=== PATIENT | male | born 1950 | race Caucasian/White ===

== ENCOUNTER 2023-02-11 14:29 | Outpatient (OUT) | payer MEDICARE, BC, SELFPAY ==
[2023-02-11 16:12] LABS: Anion Gap 12.4; BUN Creatinine Ratio 8.2; Calcium 8.6 mg/dL (8.5-10.1); Carbon Dioxide 26.8 mmol/L (21.0-32.0); Chloride 99 mmol/L (98-107); Estimated GFR (African America 57 (>=60); Estimated GFR (Non-African Ame 47 (>=60); Glucose 169 mg/dL (74-106); Potassium 4.2 mmol/L (3.5-5.1); Sodium 134 mmol/L (136-145)
== END 2023-02-11 14:30 | disposition home or self-care (01) ==
LOC: LAB 14:29
PROVIDERS: PCP Internal Medicine; Visit Provider Nurse Practitioner
DX: I50.20 Unspecified systolic (congestive) heart failure (principal)
CPT/HCPCS: 36415; 80048

== ENCOUNTER 2023-04-06 22:41 | Observation (INO) | payer MEDICARE, BC, SELFPAY ==
[2023-04-06 22:51] VITALS: BP 140/71; PULSE 68; RESP 20; TEMP 36.6; O2SAT 99; BMI 29.7
--- NOTE | 2023-04-06 23:01 | ECG_ITS ---
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
--- NOTE | 2023-04-06 23:02 | ED.CHESTPAI1 ---
HPI - Chest Pain General Chief Complaint: Chest Pain Stated Complaint: CHEST PAIN Time Seen by Provider: 04/06/23 22:58 Source: patient Mode of arrival: walk-in History of Present Illness HPI narrative: history of CAD. Developed chest pain earlier today while working outside. Came in and rest and it resolved. Tonight watching TV recurrence of chest pain. just left to center. No associated dyspnea or nausea. Took nitro x 3 at home and the pain has let up some. pain is tolerable. [place] light headed after nitro but this has resolved MD complaint: Reports chest pain Related Data Home Medications Medication Instructions Recorded Confirmed acetaminophen 650 mg 1,300 mg PO DAILY PRN fever or pain 04/06/23 04/06/23 tablet,extended release apixaban 5 mg tablet (Eliquis) 5 mg PO Q12H 04/06/23 04/06/23 atenolol 50 mg tablet 50 mg PO Q24H 04/06/23 04/06/23 atorvastatin 40 mg tablet 40 mg PO DAILY 04/06/23 04/06/23 furosemide 20 mg tablet 20 mg PO Q12H 04/06/23 04/06/23 lisinopril 5 mg tablet 5 mg PO DAILY 04/06/23 04/06/23 nitroglycerin 0.4 mg sublingual 0.4 mg sublingual Q5M 04/06/23 04/06/23 tablet omeprazole 20 mg capsule,delayed 20 mg PO DAILY 04/06/23 04/06/23 release Allergies Allergy/AdvReac Type Severity Reaction Status Date / Time No Known Drug Allergies Allergy Verified 04/06/23 22:56 Review of Systems ROS Status of ROS 10 or more systems reviewed and unremarkable except as noted in history and below [facility] Social History Smoking status: Former smoker Exam Constitutional Vital Signs, click to edit/add: Last Vital Signs Temp 97.8 F 04/06/23 22:51 Pulse 67 04/06/23 23:59 Resp 20 04/06/23 23:59 BP 135/64 04/06/23 23:59 Pulse Ox 97 04/06/23 23:59 O2 Del Method Room Air 04/06/23 23:59 Common normals: no apparent distress, average body habitus, oriented x3, no limitations and healthy appearing Eye Common normals: EOMs intact bilaterally and conjunctivae normal Respiratory Common normals: normal respiratory effort, no retractions, no use of accessory muscles and clear to auscultation bilaterally Cardio Common normals: regular rate, regular rhythm, S1 normal heart sound and S2 normal heart sound GI Common normals: Normal to inspection, nondistended, normoactive bowel sounds present and soft to palpation Extremity Common normals: normal to inspection and full ROM Neuro Common normals: oriented x3, CN's II-XII intact bilaterally, moves all extremities, no focal motor deficits and no sensory deficits noted Psych Appearance: grossly normal Course Vital Signs Vital signs: Vital Signs Temperature 97.8 F 04/06/23 22:51 Pulse Rate 68 04/06/23 22:51 Respiratory Rate 20 04/06/23 22:51 Blood Pressure 140/71 04/06/23 22:51 Pulse Oximetry 99 04/06/23 22:51 Oxygen Delivery Method Room Air 04/06/23 22:51 Temperature 97.8 F 04/06/23 22:51 Pulse Rate 67 04/06/23 23:59 Respiratory Rate 20 04/06/23 23:59 Blood Pressure 135/64 04/06/23 23:59 Pulse Oximetry 97 04/06/23 23:59 Oxygen Delivery Method Room Air 04/06/23 23:59 MDM - Chest Pain MDM Narrative Medical decision making narrative: patient has past history of CAD S/P stent placement. Experienced chest pain earlier this Afternoon. Pain returned tonight while resting and watching TV. Took Nitro glycerin with mild relief. No associated dyspnea or nausea. Pain is tolerable and he is not requesting any pain medication . EKG with LAFB and nonspecific T wave changes. First troponin neg. His chest pain has nearly resolved without intervention. Discussed with hospitalist and will plan obs admission to the hospital Lab Data Labs: Lab Results 04/06/23 Range/Units 22:57 WBC 6.3 (4.0-11.0) 10^3/uL RBC 4.08 L (4.70-6.10) 10^6/uL Hgb 13.4 L (14.0-18.0) g/dL Hct 36.5 L (42.0-54.0) % MCV 89.5 (80.0-94.0) fL MCH 32.8 (25.9-34.0) pg MCHC 36.7 H (29.9-35.2) g/dL RDW 13.4 (11.0-15.0) % Plt Count 168 (150-450) 10^3/uL MPV 10.1 (9.5-13.5) fL Neut % (Auto) 63.2 (43.0-75.0) % Lymph % (Auto) 24.5 (20.5-60.0) % [place] % (Auto) 8.2 (1.7-12.0) % Eos % (Auto) 3.0 (0.9-7.0) % Baso % (Auto) 0.6 (0.2-2.0) % Neut # (Auto) 4.0 (1.4-6.5) 10^3/uL Lymph # (Auto) 1.6 (1.2-3.8) 10^3/uL [place] # (Auto) 0.5 (0.3-0.8) 10^3/uL Eos # (Auto) 0.2 (0.0-0.7) 10^3/uL Baso # (Auto) 0.0 (0.0-0.1) 10^3/uL Abs Immat Gran (auto) 0.03 (0.00-0.03) 10^3/uL Imm/Tot Granulo (auto) 0.5 (0.0-0.5) % D-Dimer <0.19 (<=0.59) mg/L FEU Sodium 134 L (136-145) mmol/L Potassium 3.7 (3.5-5.1) mmol/L Chloride 100 (98-107) mmol/L Carbon Dioxide 22.1 (21.0-32.0) mmol/L Anion Gap 15.6 BUN 12.0 (7.0-18.0) mg/dL Creatinine 1.35 H (0.70-1.30) mg/dL Est GFR ( Amer) >60 (>=60) Est GFR (Non-Af Amer) 52 L (>=60) BUN/Creatinine Ratio 8.9 Glucose 233 H (74-106) mg/dL Calcium 8.0 L (8.5-10.1) mg/dL Troponin I High Sens 5.6 (4.0-76.1) pg/mL Discharge Plan Discharge Chief Complaint: Chest Pain Clinical Impression: Chest pain Patient Disposition: Admitted as Observation
[2023-04-06 23:08] VITALS: PULSE 66; O2SAT 98
[2023-04-06 23:09] LABS: Basophils Percent Auto 0.6 % (0.2-2.0); Eosinophils Absolute Auto 0.2 10^3/uL (0.0-0.7); Hematocrit 36.5 % (42.0-54.0); Hemoglobin 13.4 g/dL (14.0-18.0); Immature Granulocytes Abs Auto 0.03 10^3/uL (0.00-0.03); Immature Granulocytes Pct Auto 0.5 % (0.0-0.5); Lymphocytes Absolute Auto 1.6 10^3/uL (1.2-3.8); Lymphocytes Percent Auto 24.5 % (20.5-60.0); Mean Corpuscular HGB Conc 36.7 g/dL (29.9-35.2); Mean Corpuscular Hemoglobin 32.8 pg (25.9-34.0); Mean Corpuscular Volume 89.5 fL (80.0-94.0); Mean Platelet Volume 10.1 fL (9.5-13.5); Monocytes Absolute Auto 0.5 10^3/uL (0.3-0.8); Monocytes Percent Auto 8.2 % (1.7-12.0); Neutrophils Percent Auto 63.2 % (43.0-75.0); Platelet Count 168 10^3/uL (150-450); Red Blood Count 4.08 10^6/uL (4.70-6.10); Red Cell Distribution Width 13.4 % (11.0-15.0); White Blood Count 6.3 10^3/uL (4.0-11.0)
--- NOTE | 2023-04-06 23:09 | XR_ITS ---
The [address] [address] Patient Name: MICHELLE SANDOVAL MRN: [id number] date: 1950 Sex: M Assigned Patient Location: ER Current Patient Location: ER Accession/Order Number: [id number] Exam Date: 04/06/2023 23:09 Report Date: 04/07/2023 00:04 At the request of: CHRISTO SILVA Procedure: XR chest 1V EXAM: XR chest 1V HISTORY: chest pain COMPARISON: None. TECHNIQUE: AP portable FINDINGS: Slightly prominent cardiac size. Mild interstitial edema visualized. No evidence for pneumothorax or pleural effusions. No evidence for consolidation. The diaphragmatic and osseous structures are intact without evidence for an acute osseous abnormality. Mild atelectatic changes noted along the bilateral lung bases. XR/XR chest 1V IMPRESSION: Mild interstitial edema without evidence for consolidation, pneumothorax or pleural effusion. Mild atelectatic changes noted along the lung bases. Electronically authenticated by: IVIS HUNT Date: 04/07/2023 00:04
[2023-04-06 23:27] LABS: Anion Gap 15.6; BUN Creatinine Ratio 8.9; Carbon Dioxide 22.1 mmol/L (21.0-32.0); Chloride 100 mmol/L (98-107); Estimated GFR (African America >60 (>=60); Estimated GFR (Non-African Ame 52 (>=60); Glucose 233 mg/dL (74-106); Potassium 3.7 mmol/L (3.5-5.1); Sodium 134 mmol/L (136-145); Troponin I High Sensitivity 5.6 pg/mL (4.0-76.1)
[2023-04-06 23:31] LABS: D Dimer <0.19 mg/L FEU (<=0.59)
[2023-04-06 23:59] VITALS: BP 135/64; PULSE 67; RESP 20; O2SAT 97
[2023-04-07] VITALS (7 sets, daily range): BP systolic 136–147; BP diastolic 68–76; PULSE 56–74; RESP 16–20; TEMP 36.6–37; O2SAT 96–98; BMI 30.8
[2023-04-07 01:46] LABS: Troponin I High Sensitivity 5.3 pg/mL (4.0-76.1)
--- NOTE | 2023-04-07 04:44 | P.PN_ITS ---
Progress Note: Subjective Subjective Interval history: PT is a 72M with PMH of CAD, PCI who presents to the ED with complaint of chest pain. He states the pain is aching in quality, 7/10 in severity, nonradiating, no exacerbating factors, relieved by nitro. The pain came on while he was working in the yard. In the ED, EKG, Troponin, D-Dimer and CXr were all negative. At the time of my exam, pain is 1/10 He denies shortness of breath, palpitations, diaphoresis, nausea, vomiting. Exam Narrative Exam Narrative: GEN: NAD HEENT: NC/AT NECK: FROM CV: RRR, No murmur. PULM: CTA B/L GI: Nondistended Neuro: AAOx3 Psych: Calm, Cooperative Constitutional Vital Signs, click to edit/add: Last Vital Signs Temp 97.9 F 04/07/23 02:18 Pulse 63 04/07/23 04:15 Resp 20 04/07/23 02:18 BP 143/69 H 04/07/23 02:18 Pulse Ox 96 04/07/23 02:18 O2 Del Method Room Air 04/07/23 02:18 Progress Note: Objective Labs Labs: Short CBC 04/06/23 Range/Units 22:57 WBC 6.3 (4.0-11.0) 10^3/uL Hgb 13.4 L (14.0-18.0) g/dL Hct 36.5 L (42.0-54.0) % Plt Count 168 (150-450) 10^3/uL BMP 04/06/23 22:57 Sodium 134 L Potassium 3.7 Chloride 100 Carbon Dioxide 22.1 BUN 12.0 Creatinine 1.35 H Glucose 233 H Calcium 8.0 L Progress Note: A&P Assessment and Plan (1) Chest pain: Plan Known CAD, Hx of PCI Place in obs NPO for possible stress vs cath Echocardiogram Serial troponin EKG TSH Morphine PRN Telemetry monitoring Telemedicine Attestation Telemedicine Attestation I conducted this encounter from []SEKOU via secure live, [id number] video c onference with the patient, located at [facility] with [nurse]. Prior to the interview, the risks and benefits of telemedicine were discussed with the patient and verbal consent was obtained.
--- NOTE | 2023-04-07 05:00 | ECG_ITS ---
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
[2023-04-07 05:37] LABS: Basophils Percent Auto 0.8 % (0.2-2.0); Eosinophils Absolute Auto 0.2 10^3/uL (0.0-0.7); Eosinophils Percent Auto 3.6 % (0.9-7.0); Hematocrit 34.6 % (42.0-54.0); Hemoglobin 12.5 g/dL (14.0-18.0); Immature Granulocytes Abs Auto 0.03 10^3/uL (0.00-0.03); Immature Granulocytes Pct Auto 0.6 % (0.0-0.5); Lymphocytes Absolute Auto 1.2 10^3/uL (1.2-3.8); Lymphocytes Percent Auto 25.3 % (20.5-60.0); Mean Corpuscular HGB Conc 36.1 g/dL (29.9-35.2); Mean Corpuscular Hemoglobin 32.4 pg (25.9-34.0); Mean Corpuscular Volume 89.6 fL (80.0-94.0); Mean Platelet Volume 10.4 fL (9.5-13.5); Monocytes Absolute Auto 0.4 10^3/uL (0.3-0.8); Monocytes Percent Auto 8.6 % (1.7-12.0); Neutrophils Absolute Auto 2.9 10^3/uL (1.4-6.5); Neutrophils Percent Auto 61.1 % (43.0-75.0); Platelet Count 129 10^3/uL (150-450); Red Blood Count 3.86 10^6/uL (4.70-6.10); Red Cell Distribution Width 13.4 % (11.0-15.0); White Blood Count 4.8 10^3/uL (4.0-11.0)
[2023-04-07] MEDS: 0.9 % SODIUM CHLORIDE 1,000 ML 100 ML IV (05:44)
[2023-04-07 05:48] LABS: Anion Gap 8.2; BUN Creatinine Ratio 9.7; Calcium 8.1 mg/dL (8.5-10.1); Carbon Dioxide 24.4 mmol/L (21.0-32.0); Chloride 97 mmol/L (98-107); Estimated GFR (African America >60 (>=60); Estimated GFR (Non-African Ame 57 (>=60); Glucose 192 mg/dL (74-106); Magnesium 1.9 mg/dL (1.8-2.4); Potassium 3.6 mmol/L (3.5-5.1); Sodium 126 mmol/L (136-145)
[2023-04-07 05:53] LABS: Cholesterol 168 mg/dL (<=200); HDL Cholesterol 32 mg/dL (40-60); Triglycerides 249 mg/dL (<=150); VLDL CHOLESTEROL 49.8 mg/dL
[2023-04-07 05:55] LABS: Chol HDL Ratio 5.3
[2023-04-07 05:56] LABS: Thyroid Stimulating Hormone 3.252 uIU/mL (0.358-3.740)
--- NOTE | 2023-04-07 11:39 | CM.NOTE ---
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 No discharge needs identified. Medicare Outpatient Observation Notice also discussed with pt, pt verbalizes understanding and signs paper. Original given to pt and copy placed on pt's chart.
--- NOTE | 2023-04-07 12:32 | PM.HP ---
H&P: HPI History of Present Illness Chief complaint: Chest pain Narrative: 72 y/o male with a history of CAD presents to ER with chest pain. Developed episode of chest pain while working outside. Pain in mid chest and heaviness. No radiation to arm or jaw. Went inside and rested then pain resolved. Later that evening another episode of pain and to ER. Pain resolved by time of arrival and pain free since. Initial cardiac enzymes negative and admitted. Feels well this am and still no pain. Follows with cardiology and several years since last stress test. Review of Systems ROS Constitutional Denies: fever, chills or night sweats Cardiovascular Reports: chest pain; Denies: palpitations or edema Respiratory Denies: shortness of breath, cough or wheezing Gastrointestinal Denies: abdominal pain, nausea, vomiting or diarrhea Genitourinary Denies: painful urination PFSH PFS Medical History (Updated 04/07/23 @ 09:21 by Cesar Morales MD) Surgical History (Updated 04/07/23 @ 02:42 by Anny Roman RN) Family History (Updated 04/07/23 @ 02:44 by Anny Roman RN) Father Family history of cancer Sister Family history of cancer Mother Family history of stroke Social History (Updated 04/07/23 @ 02:47 by Anny Roman RN) Within the past year, how often did you have a drink containing alcohol: 4 or more times a week Within the past year, how many standard drinks containing alcohol did you have on a typical day: 3 or 4 Within the past year, how often did you have six or more drinks on one occasion: monthly Total score: 4 Score interpretation: A score of 4 or more indicates drinking is likely to affect patient's safety. 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 Known occupational exposures/hazards: No Highest level of school completed/degree received: some college, no degree Are you now , , , , never or living with a partner: In a typical week, how many times do you talk on the telephone with family, friends, or neighbors: 3 or more times per week How often do you get together with friends or relatives: once per week How often do you attend spiritism or adventism services: 1-3 times per year Do you belong to any clubs or organizations such as spiritism groups unions, [employer] or athletic groups, or school groups: yes Total score: 3 Score interpretation: A score of greater than or equal to 2 indicates the lowest level of social isolation. Little interest or pleasure in doing things: not at all Feeling down, depressed, or hopeless: not at all Feel stressed/tense/nervous/anxious/difficulty sleeping: only a little Do you think of yourself as: straight/heterosexual Gender Identity: male Meds Home Medications and Allergies Home Medications Medication Instructions Recorded Confirmed Type acetaminophen 650 mg 1,300 mg PO DAILY PRN fever or pain 04/06/23 04/06/23 History tablet,extended release apixaban 5 mg tablet (Eliquis) 5 mg PO BID 04/06/23 04/07/23 History atenolol 50 mg tablet 50 mg PO QDAY 04/06/23 04/07/23 History atorvastatin 40 mg tablet 40 mg PO BEDTIME 04/06/23 04/07/23 History furosemide 20 mg tablet 20 mg PO DAILY 04/06/23 04/07/23 History lisinopril 5 mg tablet 5 mg PO DAILY 04/06/23 04/06/23 History nitroglycerin 0.4 mg sublingual 0.4 mg sublingual Q5M PRN chest 04/06/23 04/07/23 History tablet pain omeprazole 20 mg capsule,delayed 20 mg PO DAILY 04/06/23 04/06/23 History release Allergies Allergy/AdvReac Type Severity Reaction Status Date / Time No Known Drug Allergies Allergy Verified 04/06/23 22:56 Exam Constitutional Vital Signs, click to edit/add: Last Vital Signs Temp 97.9 F 04/07/23 05:56 Pulse 60 04/07/23 08:24 Resp 16 04/07/23 05:56 BP 136/68 04/07/23 05:56 Pulse Ox 96 04/07/23 05:56 O2 Del Method Room Air 04/07/23 05:56 Documenting provider has reviewed patient's vital signs: yes Common normals: no apparent distress, oriented x3 and alert HENMT Common normals: normocephalic Eye Common normals: PERRL and EOMs intact bilaterally Respiratory Common normals: normal respiratory effort and clear to auscultation bilaterally Cardio Common normals: regular rate, regular rhythm, no gallops, no murmurs and no rub GI Common normals: Normal to inspection, nondistended, normoactive bowel sounds present and non-tender Extremity Common normals: no pedal edema Results Labs Labs: Short CBC 04/06/23 04/07/23 Range/Units 22:57 05:12 WBC 6.3 4.8 (4.0-11.0) 10^3/uL Hgb 13.4 L 12.5 L (14.0-18.0) g/dL Hct 36.5 L 34.6 L (42.0-54.0) % Plt Count 168 129 L (150-450) 10^3/uL BMP 04/06/23 04/07/23 22:57 05:12 Sodium 134 L 126 L Potassium 3.7 3.6 Chloride 100 97 L Carbon Dioxide 22.1 24.4 BUN 12.0 12.0 Creatinine 1.35 H 1.24 Glucose 233 H 192 H Calcium 8.0 L 8.1 L ECG Attestation: ?I have reviewed the pertinent ECG results. Assessment and Plan Assessment and Plan (1) Chest pain: (2) CAD (coronary artery disease): (3) Ischemic cardiomyopathy: (4) Benign essential hypertension: (5) Chronic HFrEF (heart failure with reduced ejection fraction): (6) Mitral valve regurgitation: Plan Patient not having ACS. CE negative and EKG unchanged. No further chest pain. Discharge home. Continue home medication without change. F/u with cardiology in next week and likely will need outpatient stress test.
--- NOTE | 2023-04-08 15:31 | CM.DCFOLLOWU ---
Person spoke with: patient How are you feeling? well How is your pain? no pain Did you understand your discharge instructions? yes Do you have any questions about your discharge instructions? no Were you given any prescriptions at discharge? no Were you able to get your prescriptions filled? Do you understand how to take your medications as ordered? yes Do you have any questions about your follow up appointment and do you plan to keep your follow up appointment? no questions and keeping follow up with PCP but has to change follow up with [facility] cardiology. Is there anything else that you would like to discuss? no Questions/Comments/Concerns/Other:
== END 2023-04-07 11:45 | disposition home or self-care (01) ==
LOC: ER 04-07 00:45 → MS 04-07 02:05
PROVIDERS: Internal Medicine; Admitting Provider Family Medicine; Emergency Provider Internal Medicine; PCP Internal Medicine; Visit Provider Family Medicine
DX: R07.9 Chest pain, unspecified (principal); I25.10 Atherosclerotic heart disease of native coronary artery without angina pectoris; I25.5 Ischemic cardiomyopathy; I11.0 Hypertensive heart disease with heart failure; I50.22 Chronic systolic (congestive) heart failure; I34.0 Nonrheumatic mitral (valve) insufficiency; Z79.01 Long term (current) use of anticoagulants; Z79.899 Other long term (current) drug therapy; Z87.891 Personal history of nicotine dependence; Z95.5 Presence of coronary angioplasty implant and graft
CPT/HCPCS: 36415; 71045; 80048; 80061; 83735; 84443; 84484; 85025; 85378; 93005; 99285; G0378; Q3014

== ENCOUNTER 2023-04-15 16:11 | Outpatient (OUT) | payer MEDICARE, BC, SELFPAY ==
[2023-04-15 16:34] LABS: Erythrocyte Sedimentation Rate 7 mm/hr (<=20)
[2023-04-17 06:09] LABS: Rheumatoid Factor (RF) <10.0 IU/mL (<14.0)
[2023-04-17 12:09] LABS: ANA Direct Negative (Negative)
== END 2023-04-15 16:12 | disposition home or self-care (01) ==
LOC: LAB 16:14
PROVIDERS: PCP Internal Medicine; Visit Provider Internal Medicine
DX: M19.90 Unspecified osteoarthritis, unspecified site (principal)
CPT/HCPCS: 36415; 85652; 86038; 86430

== ENCOUNTER 2023-05-22 15:02 | Emergency (ER) | payer MEDICARE, BC, SELFPAY ==
[2023-05-22 15:05] VITALS: BP 149/81; PULSE 69; RESP 18; TEMP 36.4; O2SAT 97; BMI 29.1
--- NOTE | 2023-05-22 15:16 | ED.UPPEXIN1 ---
HPI - Extremity Injury (Upper) General Chief Complaint: Extremity Injury, Upper Stated Complaint: UPPER EXTREMITY INJURY RIGHT SHOULDER Time Seen by Provider: 05/22/23 15:10 Source: patient Mode of arrival: walk-in Limitations: no limitations History of Present Illness HPI narrative: the patient tripped and fell onto the ground, landing onto his left side and injuring his left shoulder. This occurred less than an hour ago. he denied hitting his head or injuring his neck or back. no LOC. He has some chronic right hip and knee pain but is able to ambulate normally. Nothing taken at home for the pain. Related Data Home Medications Medication Instructions Recorded Confirmed acetaminophen 650 mg 1,300 mg PO DAILY PRN fever or pain 04/06/23 04/06/23 tablet,extended release apixaban 5 mg tablet (Eliquis) 5 mg PO BID 04/06/23 04/07/23 atenolol 50 mg tablet 50 mg PO QDAY 04/06/23 04/07/23 atorvastatin 40 mg tablet 40 mg PO BEDTIME 04/06/23 04/07/23 furosemide 20 mg tablet 20 mg PO DAILY 04/06/23 04/07/23 lisinopril 5 mg tablet 5 mg PO DAILY 04/06/23 04/06/23 nitroglycerin 0.4 mg sublingual 0.4 mg sublingual Q5M PRN chest 04/06/23 04/07/23 tablet pain omeprazole 20 mg capsule,delayed 20 mg PO DAILY 04/06/23 04/06/23 release Previous Rx's Medication Instructions Recorded hydrocodone 5 mg-acetaminophen 325 1 tab PO Q6H PRN pain #14 tabs 05/22/23 mg tablet Allergies Allergy/AdvReac Type Severity Reaction Status Date / Time No Known Drug Allergies Allergy Verified 04/06/23 22:56 [facility] Medical History (Updated 05/22/23 @ 16:22 by Babar Ellington) Arthritis ?M19.90 - Unspecified osteoarthritis, unspecified site (ICD-10) Biceps muscle tear ?S46.219A - Strain of muscle, fascia and tendon of other parts of biceps, unspecified arm, initial encounter (ICD-10) Carpal tunnel syndrome, bilateral ?G56.03 - Carpal tunnel syndrome, bilateral upper limbs (ICD-10) Finger amputee ?Z89.029 - Acquired absence of unspecified finger(s) (ICD-10) Heart attack ?I21.9 - Acute myocardial infarction, unspecified (ICD-10) Heart valve disease ?I38 - Endocarditis, valve unspecified (ICD-10) Hernia ?K46.9 - Unspecified abdominal hernia without obstruction or gangrene (ICD-10) Hyperlipidemia ?E78.5 - Hyperlipidemia, unspecified (ICD-10) Rotator cuff arthropathy of left shoulder ?M12.812 - Other specific arthropathies, not elsewhere classified, left shoulder (ICD-10) Surgical History (Updated 04/07/23 @ 02:42 by Anny Roman RN) S/P ablation of atrial fibrillation ?Z98.890 - Other specified postprocedural states (ICD-10) ?Z86.79 - Personal history of other diseases of the circulatory system (ICD-10) Family History (Updated 04/07/23 @ 02:44 by Anny Roman RN) Father Family history of cancer Sister Family history of cancer Mother Family history of stroke Social History (Updated 04/07/23 @ 02:47 by Anny Roman RN) Within the past year, how often did you have a drink containing alcohol: 4 or more times a week Within the past year, how many standard drinks containing alcohol did you have on a typical day: 3 or 4 Within the past year, how often did you have six or more drinks on one occasion: monthly Total score: 4 Score interpretation: A score of 4 or more indicates drinking is likely to affect patient's safety. 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 Known occupational exposures/hazards: No Highest level of school completed/degree received: some college, no degree Are you now , , , , never or living with a partner: In a typical week, how many times do you talk on the telephone with family, friends, or neighbors: 3 or more times per week How often do you get together with friends or relatives: once per week How often do you attend quaker or episcopal services: 1-3 times per year Do you belong to any clubs or organizations such as quaker groups unions, fraternal or athletic groups, or school groups: yes Total score: 3 Score interpretation: A score of greater than or equal to 2 indicates the lowest level of social isolation. Little interest or pleasure in doing things: not at all Feeling down, depressed, or hopeless: not at all Feel stressed/tense/nervous/anxious/difficulty sleeping: only a little Do you think of yourself as: straight/heterosexual Gender Identity: male Exam Narrative Exam Narrative: Nurses note and vital signs reviewed and patient is not hypoxic. afebrile General: The patient appears well and in no apparent distress. Patient is resting comfortably on cart. GCS = 15. Skin: Warm, dry, no pallor noted. Head: Normocephalic, atraumatic Neck: Supple, trachea mid-line. Full ROM and no cervical spinal tenderness. Eyes: PERRLA, EOMI ENT: no facial injury Cardiovascular: Regular Rate and Rhythm Respiratory: Patient is in no distress, no accessory muscle use, lungs are clear to auscultation, no wheezing, rales or rhonchi Chest Wall: no tenderness, no flail chest, contusion, abrasion, or signs of trauma. Back: No thoracic or lumbar tenderness to palpation. Negative straight leg raise bilaterally. Musculoskeletal: tenderness to the left shoulder - he is unable to flex, abduct, internally or externally rotate the left shoulder due to the pain. He can extend and adduct the left shoulder easily. no additional sign of long bone fracture, no tenderness, no swelling. Pulses at femoral, DP, PT, and popliteal were 2+ bilaterally. Moves all three remaining extremities in all modalities with 5/5 strength. GI: Normal bowel sounds, no tenderness to palpation, no masses appreciated. No rebound, guarding, or rigidity noted. Neurological: A&O x4, normal equal intern architect strength, normal finger to nose, normal speech, normal coordination, normal motor, normal sensory. Psychiatric: Cooperative Constitutional Vital Signs, click to edit/add: Last Vital Signs Temp 97.5 F L 05/22/23 15:05 Pulse 69 05/22/23 15:05 Resp 18 05/22/23 15:05 BP 149/81 H 05/22/23 15:05 Pulse Ox 97 05/22/23 15:05 O2 Del Method Room Air 05/22/23 15:05 Course Vital Signs Vital signs: Vital Signs Temperature 97.5 F L 05/22/23 15:05 Pulse Rate 69 05/22/23 15:05 Respiratory Rate 18 05/22/23 15:05 Blood Pressure 149/81 H 05/22/23 15:05 Pulse Oximetry 97 05/22/23 15:05 Oxygen Delivery Method Room Air 05/22/23 15:05 Temperature 97.5 F L 05/22/23 15:05 Pulse Rate 69 05/22/23 15:05 Respiratory Rate 18 05/22/23 15:05 Blood Pressure 149/81 H 05/22/23 15:05 Pulse Oximetry 97 05/22/23 15:05 Oxygen Delivery Method Room Air 05/22/23 15:05 MDM - Extremity Injury (Upper) MDM Narrative Medical decision making narrative: patient given [place] for pain and xrays of the left shoulder obtained. No acute fracture or dislocation identified. ED nurse applied a sling to the patient's left arm. The patient was neurovascularly intact distally afterward. He was discharged home with prescription for [place] and referred to Ortho - Dr López for follow up. Imaging Data xr left shoulder: Radiologist's impression: Patient Name: MICHELLE SANDOVAL MRN: [facility]:[id number] date: 1950 Sex: M Assigned Patient Location: ER Current Patient Location: ER Accession/Order Number: [id number] Exam Date: 05/22/2023 15:20 Report Date: 05/22/2023 15:44 At the request of: BABAR ELLINGTON Procedure: XR shoulder LT min 2V STUDY: XR shoulder LT min 2V, [id number] HISTORY: left shoulder injury COMPARISON: Chest x-ray 04/06/2023. FINDINGS: No acute fracture, dislocation, or suspicious osseous lesion. Bone anchor present in the proximal humerus. Mild osteophytosis of the glenohumeral joint. Chronic hazy opacification of the visualized left lung, stable. An implantable loop recorder is present. IMPRESSION: No acute osseous abnormality. Electronically authenticated by: GAYATRI GARCIA Date: 05/22/2023 15:44 Discharge Plan Discharge Chief Complaint: Extremity Injury, Upper Clinical Impression: Sprain of left shoulder Patient Disposition: Home, Self-Care Time of Disposition Decision: 16:20 Prescriptions / Home Meds: New hydrocodone-acetaminophen 5-325 mg tablet 1 tab PO Q6H PRN (Reason: pain) Qty: 14 0RF No Action atenolol 50 mg tablet 50 mg PO QDAY Eliquis 5 mg tablet 5 mg PO BID atorvastatin 40 mg tablet 40 mg PO BEDTIME furosemide 20 mg tablet 20 mg PO DAILY lisinopril 5 mg tablet 5 mg PO DAILY omeprazole 20 mg capsule,delayed release(DR/EC) 20 mg PO DAILY acetaminophen 650 mg tablet extended release 1,300 mg PO DAILY PRN (Reason: fever or pain) nitroglycerin 0.4 mg tablet, sublingual 0.4 mg sublingual Q5M PRN (Reason: chest pain) Rx Instructions: do not exceed 3 doses per episode Instructions: Shoulder Sprain (ED) Stand Alone Forms: Portal Instructions Referrals: GALEN MELENDEZ [Primary Care Provider] - 1 week Umair López MD [Physician] - As soon as possible
--- NOTE | 2023-05-22 15:30 | XR_ITS ---
The [place] [id number] Patient Name: MICHELLE SANDOVAL MRN: [id number] date: 1950 Sex: M Assigned Patient Location: ER Current Patient Location: ER Accession/Order Number: [id number] Exam Date: 05/22/2023 15:20 Report Date: 05/22/2023 15:44 At the request of: ELMER ELLINGTON Procedure: XR shoulder LT min 2V STUDY: XR shoulder LT min 2V, [id number] HISTORY: left shoulder injury COMPARISON: Chest x-ray 04/06/2023. FINDINGS: No acute fracture, dislocation, or suspicious osseous lesion. Bone anchor present in the proximal humerus. Mild osteophytosis of the glenohumeral joint. Chronic hazy opacification of the visualized left lung, stable. An implantable loop recorder is present. XR/XR shoulder LT min 2V IMPRESSION: No acute osseous abnormality. Electronically authenticated by: GAYATRI GARCIA Date: 05/22/2023 15:44
== END 2023-05-22 16:56 | disposition home or self-care (01) ==
PROVIDERS: Emergency Provider Emergency Medicine; PCP Internal Medicine
DX: S43.402A Unspecified sprain of left shoulder joint, initial encounter (principal); W01.10XA Fall on same level from slipping, tripping and stumbling with subsequent striking against unspecified object, initial encounter; Z79.899 Other long term (current) drug therapy; Z79.01 Long term (current) use of anticoagulants; M19.90 Unspecified osteoarthritis, unspecified site; I25.2 Old myocardial infarction; E78.5 Hyperlipidemia, unspecified; Z98.890 Other specified postprocedural states; Z86.79 Personal history of other diseases of the circulatory system; F17.210 Nicotine dependence, cigarettes, uncomplicated
CPT/HCPCS: 73030; 99283

== ENCOUNTER 2023-09-19 13:00 | Emergency (ER) | payer MEDICARE, BC, SELFPAY ==
[2023-09-19 13:07] VITALS: BP 124/60; PULSE 70; RESP 24; TEMP 36.3; O2SAT 96; BMI 27.7
--- NOTE | 2023-09-19 13:14 | XR_ITS ---
The [address] [address] Patient Name: MICHELLE SANDOVAL MRN: [id number] date: 1950 Sex: M Assigned Patient Location: ER Current Patient Location: ER Accession/Order Number: [id number] Exam Date: 09/19/2023 13:30 Report Date: 09/19/2023 14:32 At the request of: TURNER MARY Procedure: XR chest 2V PROCEDURE: XR chest 2V DATE: 09/19/2023 1:30 PM EST COMPARISONS: 04/06/2023 CLINICAL INDICATION: 73 years Male cough 3 weeks. FINDINGS: Heart is within normal limits in size and is stable. A loop recorder overlies the anterior left chest, stable. There is prominent coarse increased interstitial markings throughout all lung villarreal similar to previous exam. This probably represents chronic lung changes. No evidence of new consolidating infiltrates suggest pneumonia. There is no evidence of pleural effusion or pneumothorax. XR/XR chest 2V IMPRESSION: Findings most consistent with moderate chronic lung changes. Stable chest from 04/06/2023. Electronically authenticated by: CELIA SCHULER Date: 09/19/2023 14:32
[2023-09-19 13:41] LABS: Influenza Virus A Antigen Negative; Influenza Virus B Antigen Negative; Internal Control Within Normal Limits; SARS-CoV-2 Ag NEGATIVE (NEGATIVE)
--- NOTE | 2023-09-19 14:44 | ED_ITS ---
HPI - URI/Sore Throat General Chief Complaint: Upper Respiratory Infection Stated Complaint: cough Time Seen by Provider: 09/19/23 14:31 Source: patient Limitations: no limitations History of Present Illness HPI Narrative: 73-year-old male presents for a cough. He has had it for about 2 and half weeks. He has been on a Medrol Dosepak and was on cefdinir as well for several days. He has not gotten better. He is a former smoker Related Data Home Medications Medication Instructions Recorded Confirmed acetaminophen 650 mg 1,300 mg PO DAILY PRN fever or pain 04/06/23 04/06/23 tablet,extended release apixaban 5 mg tablet (Eliquis) 5 mg PO BID 04/06/23 04/07/23 atenolol 50 mg tablet 50 mg PO QDAY 04/06/23 04/07/23 atorvastatin 40 mg tablet 40 mg PO BEDTIME 04/06/23 04/07/23 furosemide 20 mg tablet 20 mg PO DAILY 04/06/23 04/07/23 lisinopril 5 mg tablet 5 mg PO DAILY 04/06/23 04/06/23 nitroglycerin 0.4 mg sublingual 0.4 mg sublingual Q5M PRN chest 04/06/23 04/07/23 tablet pain omeprazole 20 mg capsule,delayed 20 mg PO DAILY 04/06/23 04/06/23 release Previous Rx's Medication Instructions Recorded hydrocodone 5 mg-acetaminophen 325 1 tab PO Q6H PRN pain #14 tabs 05/22/23 mg tablet albuterol sulfate 90 mcg/actuation 2 inh inhalation Q4H PRN shortness 09/19/23 aerosol inhaler of breath or wheezing #8.5 grams azithromycin 250 mg tablet See Rx Instructions PO .COMPLEX #6 09/19/23 (Zithromax Z-Deon) tabs prednisone 10 mg tablet See Rx Instructions .Route 09/19/23 .COMPLEX #30 tabs Allergies Allergy/AdvReac Type Severity Reaction Status Date / Time benzonatate Allergy Intermediate Verified 09/19/23 13:12 [From Malathi Reyes] [facility] Medical History (Updated 09/19/23 @ 15:40 by Guero Mcnulty MD) Biceps muscle tear ?S46.219A - Strain of muscle, fascia and tendon of other parts of biceps, unspecified arm, initial encounter (ICD-10) Rotator cuff arthropathy of left shoulder ?M12.812 - Other specific arthropathies, not elsewhere classified, left shoulder (ICD-10) Carpal tunnel syndrome, bilateral ?G56.03 - Carpal tunnel syndrome, bilateral upper limbs (ICD-10) Arthritis ?M19.90 - Unspecified osteoarthritis, unspecified site (ICD-10) Heart valve disease ?I38 - Endocarditis, valve unspecified (ICD-10) Hyperlipidemia ?E78.5 - Hyperlipidemia, unspecified (ICD-10) Finger amputee ?Z89.029 - Acquired absence of unspecified finger(s) (ICD-10) Hernia ?K46.9 - Unspecified abdominal hernia without obstruction or gangrene (ICD- 10) Heart attack ?I21.9 - Acute myocardial infarction, unspecified (ICD-10) Surgical History (Updated 04/07/23 @ 02:42 by Anny Roman RN) S/P ablation of atrial fibrillation ?Z98.890 - Other specified postprocedural states (ICD-10) ?Z86.79 - Personal history of other diseases of the circulatory system (ICD- 10) Family History (Updated 04/07/23 @ 02:44 by Anny Roman RN) Father Family history of cancer Sister Family history of cancer Mother Family history of stroke Social History (Updated 04/07/23 @ 02:47 by Anny Roman RN) Within the past year, how often did you have a drink containing alcohol: 4 or more times a week Within the past year, how many standard drinks containing alcohol did you have on a typical day: 3 or 4 Within the past year, how often did you have six or more drinks on one occasion: monthly Total score: 4 Score interpretation: A score of 4 or more indicates drinking is likely to affect patient's safety. 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 Known occupational exposures/hazards: No Highest level of school completed/degree received: some college, no degree Are you now , , , , never or living with a partner: In a typical week, how many times do you talk on the telephone with family, friends, or neighbors: 3 or more times per week How often do you get together with friends or relatives: once per week How often do you attend muslim or adventist services: 1-3 times per year Do you belong to any clubs or organizations such as muslim groups unions, fraternal or athletic groups, or school groups: yes Total score: 3 Score interpretation: A score of greater than or equal to 2 indicates the lowest level of social isolation. Little interest or pleasure in doing things: not at all Feeling down, depressed, or hopeless: not at all Feel stressed/tense/nervous/anxious/difficulty sleeping: only a little Do you think of yourself as: straight/heterosexual Gender Identity: male Exam Constitutional Vital Signs, click to edit/add: Last Vital Signs Temp 97.4 F L 09/19/23 13:07 Pulse 66 09/19/23 15:22 Resp 24 09/19/23 13:07 BP 124/60 09/19/23 13:07 Pulse Ox 93 L 09/19/23 15:22 O2 Del Method Room Air 09/19/23 15:22 Course Vital Signs Vital signs: Vital Signs Temperature 97.4 F L 09/19/23 13:07 Pulse Rate 70 09/19/23 13:07 Respiratory Rate 24 09/19/23 13:07 Blood Pressure 124/60 09/19/23 13:07 Pulse Oximetry 96 09/19/23 13:07 Oxygen Delivery Method Room Air 09/19/23 13:07 Temperature 97.4 F L 09/19/23 13:07 Pulse Rate 66 09/19/23 15:22 Respiratory Rate 24 09/19/23 13:07 Blood Pressure 124/60 09/19/23 13:07 Pulse Oximetry 93 L 09/19/23 15:22 Oxygen Delivery Method Room Air 09/19/23 15:22 MDM - URI/Sore Throat MDM Narrative Medical decision making narrative: His workup here is negative. He feels improved with aerosol treatment and he is discharged home on albuterol, Zithromax, and prednisone. Treatment diagnosis and follow-up were discussed with the patient. Differential Diagnosis Differential diagnosis: Likely upper respiratory infection, viral infection, bronchitis, influenza and other (COVID, pneumonia) Lab Data Attestation: I reviewed the patient's lab results. Labs: Lab Results 09/19/23 Range/Units 13:16 Influenza Type A Ag Negative Influenza Type B Ag Negative SARS-CoV-2 Ag (CV2AG) Negative (NEGATIVE) Imaging Data Chest x-ray: Radiologist's impression: ITS Impressions Chest X-Ray 09/19/23 13:14 IMPRESSION: Findings most consistent with moderate chronic lung changes. Stable chest from 04/06/2023. Electronically authenticated by: CELIA SCHULER Date: 09/19/2023 14:32 Discharge Plan Discharge Chief Complaint: Upper Respiratory Infection Clinical Impression: Upper respiratory infection Patient Disposition: Home, Self-Care Time of Disposition Decision: 15:40 Condition: Good Mode of Transportation: Private Vehicle Prescriptions / Home Meds: New prednisone 10 mg tablet See Rx Instructions .ROUTE .COMPLEX Qty: 30 0RF Rx Instructions: 4 by mouth daily for three days then 3 by mouth daily for three days then 2 by mouth daily for three days then 1 by mouth daily for three days azithromycin [Zithromax Z-Deon] 250 mg tablet See Rx Instructions .ROUTE .COMPLEX Qty: 6 0RF Rx Instructions: For 250 mg dose pack: take 500 mg today (day 1), then 250 mg for 4 days (days 2-5) albuterol sulfate 90 mcg/actuation HFA aerosol inhaler 2 inh inhalation Q4H PRN (Reason: shortness of breath or wheezing) Qty: 8.5 0RF No Action atenolol 50 mg tablet 50 mg PO QDAY Eliquis 5 mg tablet 5 mg PO BID atorvastatin 40 mg tablet 40 mg PO BEDTIME furosemide 20 mg tablet 20 mg PO DAILY lisinopril 5 mg tablet 5 mg PO DAILY omeprazole 20 mg capsule,delayed release(DR/EC) 20 mg PO DAILY acetaminophen 650 mg tablet extended release 1,300 mg PO DAILY PRN (Reason: fever or pain) nitroglycerin 0.4 mg tablet, sublingual 0.4 mg sublingual Q5M PRN (Reason: chest pain) Rx Instructions: do not exceed 3 doses per episode hydrocodone-acetaminophen 5-325 mg tablet 1 tab PO Q6H PRN (Reason: pain) Qty: 14 0RF Instructions: Upper Respiratory Infection (ED) Stand Alone Forms: Portal Instructions Referrals: GALEN MELENDEZ [Primary Care Provider] - 1 week
[2023-09-19] MEDS: METHYLPREDNISOLONE SOD SUCC PF 125 MG/2 ML VIAL IM (15:09)
[2023-09-19] MEDS: ALBUTEROL SULFATE 2.5 MG/3 ML VIAL NEB IH (15:21)
[2023-09-19 15:22] VITALS: PULSE 66; O2SAT 93
[2023-09-19 16:06] VITALS: BP 149/74; PULSE 88; RESP 14; O2SAT 95
== END 2023-09-19 16:10 | disposition home or self-care (01) ==
PROVIDERS: Emergency Provider Emergency Medicine; PCP Internal Medicine
DX: J06.9 Acute upper respiratory infection, unspecified (principal); Z87.891 Personal history of nicotine dependence; Z79.899 Other long term (current) drug therapy; M19.90 Unspecified osteoarthritis, unspecified site; E78.5 Hyperlipidemia, unspecified; Z89.029 Acquired absence of unspecified finger(s); I25.2 Old myocardial infarction; Z79.01 Long term (current) use of anticoagulants
CPT/HCPCS: 71046; 87804; 87811; 94640; 96372; 99285; J2930

== ENCOUNTER 2023-12-28 08:38 | Outpatient (OUT) | payer MEDICARE, BC, SELFPAY ==
--- NOTE | 2023-12-28 09:00 | CA_ITS ---
Patient Name: MICHELLE SANDOVAL MR#: [id number] : 1950 Exam Date: 12/28/2023 Ordering Doctor: DR ZOLTAN MCQUEEN M.D. ECHOCARDIOGRAM REPORT PROCEDURE: CA ECHO DOPPLER COMPLETE INDICATIONS: Mitral valve regurgitation, h/o ablation - atrial fibrillation COMPARISON: None. DESCRIPTION: COMPLETE ECHOCARDIOGRAM Real-time transthoracic echocardiography with 2D, M-mode, spectral and color flow Doppler performed. QUALITY: Technical quality was good. 73 , 215#, bsa 2.22 M2, BP 148/70 LEFT VENTRICLE: Normal chamber size. Mild concentric left ventricular hypertrophy. Normal systolic function. LV EF: Normal left ventricular ejection fraction, (>55%). DIASTOLIC: Grade II diastolic dysfunction. ATRIAL SEPTUM: Visually appears intact. LEFT ATRIUM: Mild dilatation. RIGHT ATRIUM: Mild dilatation. RIGHT VENTRICLE: Mild chamber dilatation. Normal right ventricular systolic function. TRICUSPID VALVE: Normal mobility and thickness. No stenosis with trivial regurgitation. Doppler studies reveal moderately (45-60) elevated right sided pressures. RVSP 48 mmHg MITRAL VALVE: Mildly thickened with normal mobility. Mild mitral valve stenosis. There is no mitral annular calcification. At least moderate mitral regurgitation is seen. AORTIC VALVE: Normal aortic valve. No visible sclerosis. Normal leaflet mobility. No evidence of aortic valve stenosis. No aortic regurgitation. AORTIC ROOT: Normal diameter and appearance. Ascending aorta is normal in size. PULMONIC VALVE: Normal thickness and mobility. No stenosis. No regurgitation. PERICARDIUM: No evidence of pericardial effusion. IVC: Collapses with inspirations. IVC is dilated (2.4 cm) PLEURA: CONCLUSION: 1. Mild concentric left ventricular hypertrophy with normal systolic function. LVEF is 60%. 2. The right ventricle is mildly dilated and exhibits normal systolic function. 3. Mild biatrial dilatation. 4. At least moderate mitral regurgitation. 5. Moderately elevated right-sided pressures. RVSP is 48 mmHg. 6. Depending on the clinical picture, a transesophageal echocardiogram is recommended for further assessment of the mitral regurgitation. Adult Echocardiography Procedure Report Left Ventricle LVEDD (3.7 - 5.6 cm): 5.04 cm LVESD (2.2 - 4.0 cm): 3.62 cm LVIVS thickness (0.6 - 1.2 cm): 1.19 cm LVPW thickness (0.5 - 1.0 cm): 1.29 cm e': 0.10 m/s E - e': 12.46 LVOT Max Gradient: 1.92 mm[Hg] LVOT Area (cm2): 0.69 m/s Peak Velocity (LVOT): 0.69 m/s Mean Velocity (LVOT): 0.49 m/s LVOT Diameter 2.58 cm Left Atrium LA Volume Index (2D A2C): 27.10 ml/m2 Left Atrium Systolic Dimension: 4.20 cm Mitral Valve MV E to A Ratio: 2.88 Mitral Valve A-Wave Peak Velocity: 0.44 m/s Mitral Valve E-Wave Peak Velocity: 1.28 m/s Right Ventricle Aorta AO Root Diam: 3.67 cm Ascending Ao Diam: 3.38 cm Aortic Valve AoV Area (Peak Tobin): 3.30 cm2, 3.30 cm2 AoV Area (VTI): 3.14 cm2, 3.14 cm2 Peak Velocity(Antegrade Flow): 1.10 m/s Peak Gradient(Antegrade Flow): 4.83 mm[Hg] Mean Velocity(Antegrade Flow): 0.80 m/s Mean Gradient(Antegrade Flow): 2.91 mm[Hg] Velocity Time Integral: 31.55 cm Tricuspid Valve Peak Velocity (Regurgitant Flow): 3.16 m/s Pulmonic Valve Peak Gradient: 2.17 mm[Hg], 2.22 mm[Hg] Right Atrium Right Atrium Systolic Pressure: 51.53 ml, 51.53 ml Dictated by: Tico Hugo M.D. on 12/29/2023 at 08:46 Approved by: Tico Hugo M.D. on 12/29/2023 at 08:53
--- OUTSIDE RECORDS SUMMARY | 2023-12-28 09:01 | XMS_ITS | CCD ---
Author Organization [facility] Care Team Providers Care Jigman Name Role Phone Unavailable Unavailable Unavailable TIMUR SUN Referring Unavailable CORINNE, TIMUR Primary Care Unavailable LUPE STORY Admitting Unavailable PA Procedure Practitioner Unavailab AUNG Olson Surgeon Unavailable RAMO CUBA Attending Unavailable AUNG ALSTON Admitting Unavailable AUNG ALSTON Attending Unavailable CORINNE, TIMUR Referring Unavailable TIMUR SUN Primary Care Unavailable Key Borjas Unavailable AUNG ROSAS II Primary Care Unavailable NORA BRENNER, AUNG Primary Care Unavailable DECEMBERPADMAJA Attending Unavailable AUNG ROSAS II Referring Unavailable AUNG ROSAS II Primary Care Unavailable NORA BRENNER, AUNG Primary Care Unavailable Nida Mccullough Unavailable RAKEL, DR PAYNE Attending Unavailable NORA, DR AARON Primary Care Unavailable RAKEL, DR PAYNE Admitting Unavailable HERB SIMMS Consulting Unavailable NORA, DR AARON Primary Care Unavailable CHRISTO SILVA Attending Unavailable CHRISTO SILVA Admitting Unavailable CHRISTO SILVA Consulting Unavailable MISC, DR DICKSON Consulting Unavailable MISC, DR DICKSON Attending Unavailable MISC, DR DICKSON Admitting Unavailable NORA, DR AARON Primary Care Unavailable NORA, DR AARON Primary Care Unavailable NORA, DR AARON Consulting Unavailable NORA, DR AARON Attending Unavailable NORA, DR AARON Admitting Unavailable ZIEBER, DR ZAIRE Benavidez Consulting Unavailable MISC, DR DICKSON Admitting Unavailable MISC, DR DICKSON Consulting Unavailable MISC, DR DICKSON Attending Unavailable NORA, DR AARON Primary Care Unavailable Aung Rosas MD Unavailable Aung Rosas MD Primary Care Provider ELIDIA Rosas Primary Care Provider MD Tania Mcclendon Attending Provider Tania Mcclendon Attending Unavailable Tania Mcclendon Admitting Unavailable Aung Rosas Primary Care Unavailable DIANA CAGE Attending Unavailable BRADEN GALICIA Attending Unavailable AUNG ROSAS Attending Unavailable DIANA CAGE Referring Unavailable AUNG ROSAS Attending Unavailable YANN KANG Attending Unavailable JAYDE HELMS Attending Unavailable JAYDE HELMS Attending Unavailable GOLDY CAMERON Attending Unavailable IZABELLA EVANS Attending Unavailable GOLDY CAMERON Referring Unavailable AVINASH KOTHARI Attending Unavailable GOLDY CAMERON Attending Unavailable Medications Current Medications Medication Drug Class(es) Dates Sig (Normalized) Sig (Original) ALPRAZolam 0.5 mg oral tablet (2 sources) Benzodiazepine Start: 08-28-2023 take 1 tablet by mouth twice daily as needed for anxiety ALPRAZolam (Xanax) 0.5 MG tablet Indications: Anxiety Take 1 tablet (0.5 mg) by mouth 2 (two) times a day as needed for anxiety 30 tablet 0 08/28/2023 Active apixaban 5 mg oral tablet (4 sources) Factor Xa Inhibitor take 1 tablet by mouth in the morning Eliquis 5 MG tablet Take 5 mg by mouth in the morning and 5 mg before bedtime. 0 Active Eliquis Active Aspir-81 (2 sources) Aspir-81 Active aspirin 81 mg chewable tablet (2 sources) Platelet Aggregation Inhibitor, Nonsteroidal Anti-inflammatory Drug Start: 09-28-2023 End: 09-27-2024 aspirin 81 MG chewable tablet Indications: Type 2 diabetes mellitus with stage 2 chronic kidney disease, with long-term current use of insulin ([facility]) Chew 1 tablet (81 mg) in the morning. 0 09/28/2023 09/27/2024 Active atenolol 50 mg oral tablet (4 sources) beta-Adrenergic Jackelin take 1 tablet by mouth in the morning atenolol (Tenormin) 50 MG tablet Take 50 mg by mouth in the morning. 0 Active Atenolol Active atorvastatin 40 mg oral tablet (4 sources) HMG-CoA Reductase Inhibitor take 1 tablet by mouth in the morning atorvastatin (Lipitor) 40 MG tablet Take 40 mg by mouth in the morning. 0 Active Atorvastatin Billy cium Active docosahexaenoic acid 120 mg / eicosapentaenoic acid 180 mg oral capsule (2 sources) take 1 capsule by mouth in the morning omega-3 (Fish Oil) 1000 MG capsule Take 1,000 mg by mouth in the morning. 0 Active furosemide 20 mg oral tablet (3 sources) Loop Diuretic Start: 01-16-2023 take 1 tablet by mouth in the morning furosemide (Lasix) 20 MG tablet Take 20 mg by mouth in the morning. 0 01/16/2023 Active Furosemide Activ e lisinopril 5 mg oral tablet (4 sources) Angiotensin Converting Enzyme Inhibitor take 1 tablet by mouth in the morning lisinopril 5 MG tablet Take 5 mg by mouth in the morning. 0 Active Lisinopril Activ e Multiple Vitamin (Multi Vitamin) tablet (2 sources) Multiple Vitamin (Multi Vitamin) tablet 1 (one) time each day at the same time. 0 Active omeprazole 20 mg delayed release oral capsule (4 sources) Proton Pump Inhibitor take 1 capsule by mouth before mealtime omeprazole (PriLOSEC) [address] capsule Take 1 capsule by mouth in the morning. Take before meals. 0 Active Omeprazole Activ e oseltamivir 75 mg oral capsule (1 source) Neuraminidase Inhibitor Start: 07-31-2022 take 1 capsule by mouth every twelve hours Tamiflu 75 MG 1 capsule Orally Twice a day for 5 day(s) Jul, Active predniSONE 20 mg oral tablet (1 source) Start: 07-23-2021 take 1 tablet by mouth every twelve hours predniSONE 20 MG 1 tablet Orally bid for 5 day(s) Jul, Active tiZANidine 4 mg oral tablet (2 sources) Central alpha-2 Adrenergic Agonist Start: 08-28-2023 take 1 tablet by mouth twice daily as needed for muscle spasms tiZANidine (Zanaflex) 4 MG tablet Indications: Neck muscle spasm Take 1 tablet (4 mg) by mouth 2 (two) times a day as needed for muscle spasms 60 tablet 0 08/28/2023 Active Tylenol 8 Hour Arthritis Pain (2 sources) Tylenol 8 Hour Arthritis Pain Active Completed/Discontinued Medications Medication Drug Class(es) Dates Sig (Normalized) Sig (Original) benzonatate 200 mg oral capsule (2 sources) Non-narcotic Antitussive Start: 4 End: 4 take 1 capsule by mouth three times daily as needed for cough benzonatate (Tessalon) 200 MG capsule Indications: Acute cough Take 1 capsule (200 mg) by mouth 3 (three) times a day as needed for cough for up to 10 days Do not crush or chew. 30 capsule 0 09/15/2023 09/28/2023 Discontinued (Therapy completed) cefdinir 300 mg oral capsule (2 sources) Cephalosporin Antibacterial Start: 4 End: 4 take 1 capsule by mouth in the morning cefdinir (Omnicef) 300 MG capsule Indications: Acute otitis media, unspecified otitis media type , Acute non-recurrent frontal sinusitis Take 1 capsule (300 mg) by mouth in the morning and 1 capsule (300 mg) before bedtime. Do all this for 10 days. 20 capsule 0 09/15/2023 09/28/2023 Discontinued (Therapy completed) methylPREDNISolone (2 sources) Corticosteroid Start: 4 End: methylPREDNISolone (Medrol Dospak) 4 MG tablets Indications: Acute non-recurrent frontal sinusitis Follow schedule on package instructions 21 tablet 0 09/15/2023 09/28/2023 Discontinued (Therapy completed) Problems Active Problems Problem Classification Problem Date Documented Date Episodic/Chronic Anxiety disorders (2 sources) Anxiety; Translations: [Anxiety disorder, unspecified] Onset: 04-13-2023 04-13-2023 Chronic Aortic; peripheral; and visceral artery aneurysms (4 sources) Dilatation of aorta; Translations: [Thoracoabdominal aortic ectasia] Onset: 09-28-2023 09-28-2023 Chronic Cardiac dysrhythmias (20 sources) Paroxysmal atrial fibrillation; Translations: [Typical atrial flutter] Onset: 11-04-2016 Chronic Chronic kidney disease (8 sources) Chronic kidney disease stage 2; Translations: [Chronic kidney disease, stage 2 (mild)] Onset: 08-28-2023 Resolved: 09-28-2023 09-28-2023 Chronic Chronic obstructive pulmonary disease and bronchiectasis (4 sources) Bronchiectasis; Translations: [Bronchiectasis, uncomplicated] Onset: 04-13-2023 09-28-2023 Chronic Congestive heart failure; nonhypertensive (12 sources) Chronic systolic heart failure; Translations: [Chronic systolic (congestive) heart failure] Onset: 09-26-2020 09-28-2023 Chronic Coronary atherosclerosis and other heart disease (6 sources) Coronary arteriosclerosis; Translations: [Atherosclerotic heart disease of [place] coronary artery without angina pectoris] Onset: 12-31-2022 04-13-2023 Chronic Diabetes mellitus with complications (6 sources) Type 2 diabetes mellitus; Translations: [Type 2 diabetes mellitus with diabetic chronic kidney disease] Onset: 08-28-2023 09-28-2023 Chronic Disorders of lipid metabolism (4 sources) Mixed hyperlipidemia; Translations: [Mixed hyperlipidemia] Onset: 09-26-2020 09-28-2023 Chronic Disorders of teeth and jaw (5 sources) Periapical abscess without sinus; Translations: [Other specified disorders of teeth and supporting structures] Onset: 09-29-2022 Episodic Esophageal disorders (5 sources) Gastro-esophageal reflux disease without esophagitis; Translations: [Gastroesophageal reflux disease without esophagitis] Onset: 10-03-2022 09-28-2023 Chronic Essential hypertension (6 sources) Essential (primary) hypertension; Translations: [Essential hypertension] Onset: 08-17-2007 Chronic Headache; including migraine (4 sources) New daily persistent headache (NDPH); Translations: [NEW DAILY PERSISTENT HEADACHE] Onset: 04-10-2022 Chronic Headache; including migraine (2 sources) Chronic daily headache; Translations: [Chronic daily headache] Onset: 08-28-2023 08-28-2023 Episodic Heart valve disorders (7 sources) Nonrheumatic mitral (valve) insufficiency; Translations: [Rheumatic disorders of both mitral and tricuspid valves] Onset: 11-04-2016 Chronic Immunizations and screening for infectious disease (3 sources) Contact with and (suspected) exposure to other viral communicable diseases; Translations: [Suspected clinical finding] Onset: 07-23-2021 Resolved: 07-23-2021 Episodic Influenza (1 source) Influenza due to other identified influenza virus with other respiratory manifestations Episodic Occlusion or stenosis of precerebral arteries (4 sources) Bilateral atherosclerosis of carotid arteries; Translations: [Occlusion and stenosis of bilateral carotid arteries] Onset: 08-28-2023 09-28-2023 Chronic Other acquired deformities (4 sources) Lumbar spondylolisthesis; Translations: [Spondylolisthesis, lumbar region] Onset: 08-28-2023 09-28-2023 Episodic Other aftercare (1 source) jail (current) use of aspirin; Translations: [[facility] CURRENT USE OF ASPIRIN] Onset: 10-03-2022 Episodic Other aftercare (1 source) Other correction (current) drug therapy; Translations: [OTH GUN REPAIR CLERK CURRENT DRUG THERAPY] Onset: 10-03-2022 Episodic Other aftercare (1 source) 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; Translations: [[facility] CURRNT USE ANTICOAGULANTS] Onset: 10-03-2022 Episodic Other inflammatory condition of skin (2 sources) Psoriasis vulgaris; Translations: [Psoriasis vulgaris] Onset: 07-09-2022 08-28-2023 Chronic Other nervous system disorders (2 sources) Chronic pain; Translations: [Other chronic pain] Onset: 04-12-2017 08-28-2023 Chronic Other non-traumatic joint disorders (2 sources) Derangement of left shoulder joint; Translations: [Other specific joint derangements of left shoulder, not elsewhere classified] Onset: 08-28-2023 08-28-2023 Chronic Other nutritional; endocrine; and metabolic disorders (2 sources) Obese class I; Translations: [Obesity, unspecified] Onset: 03-29-2021 08-28-2023 Chronic Other skin disorders (3 sources) Localized swelling, mass and lump, head; Translations: [LOCALIZED SWELLING MASS AND LUMP HEAD] Onset: 10-01-2022 Episodic Bella-; endo-; and myocarditis; cardiomyopathy (except that caused by tuberculosis or sexually transmitted disease) (7 sources) Other cardiomyopathies; Translations: [Primary cardiomyopathy] Onset: 11-04-2016 Chronic Residual codes; unclassified (4 sources) Obstructive sleep apnea syndrome; Translations: [Obstructive sleep apnea (adult) (pediatric)] Onset: 07-02-2017 09-28-2023 Chronic Residual codes; unclassified (4 sources) H/O: atrial fibrillation; Translations: [Other specified postprocedural states] Onset: 12-02-2018 09-28-2023 Episodic Residual codes; unclassified (2 sources) Family history of aneurysm of artery; Translations: [Family history of ischemic heart disease and other diseases of the circulatory system] Onset: 08-28-2023 08-28-2023 Episodic Screening and history of mental health and substance abuse codes (1 source) Personal history of nicotine dependence; Translations: [PERSONAL HISTORY OF NICOTINE DEPEND] Onset: 10-03-2022 Episodic Spondylosis; intervertebral disc disorders; other back problems (6 sources) Spondylitis; Translations: [Unspecified inflammatory spondylopathy, lumbar region] Onset: 06-29-2017 09-28-2023 Chronic Spondylosis; intervertebral disc disorders; other back problems (2 sources) Lumbago co-occurrent with right-side sciatica; Translations: [Lumbago with sciatica, right side] Onset: 08-28-2023 08-28-2023 Episodic Substance-related disorders (2 sources) Nicotine dependence; Translations: [Nicotine dependence, unspecified, uncomplicated] Onset: 09-21-2020 08-28-2023 Chronic Unclassified (1 source) Personal history of COVID-19; Translations: [Personal history of COVID-19] Onset: 04-04-2022 Unclassified (1 source) Pain in right shoulder; Translations: [Pain in right shoulder] Onset: 10-06-2023 Past or Other Problems Problem Classification Problem Date Documented Date Episodic/Chronic Diabetes mellitus without complication (2 sources) Prediabetes; Translations: [Prediabetes] Onset: 08-28-2023 Resolved: 08-28-2023 08-28-2023 Episodic Fluid and electrolyte disorders (2 sources) Hypo-osmolality and hyponatremia; Translations: [Hypo-osmolality and hyponatremia] Onset: 05-22-2023 Episodic Other aftercare (2 sources) Long-term current use of antiplatelet drug; Translations: [jail (current) use of antithrombotics/antip latelets] Onset: 09-21-2020 08-28-2023 Episodic Other aftercare (2 sources) Long-term current use of anticoagulant; Translations: [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] Onset: 09-21-2020 08-28-2023 Episodic Other circulatory disease (2 sources) Personal history of other diseases of the circulatory system; Translations: [Personal history of other diseases of the circulatory system] Onset: 07-09-2022 Episodic Other connective tissue disease (2 sources) Full thickness rotator cuff tear; Translations: [Complete rotator cuff tear or rupture of left shoulder, not specified as traumatic] Onset: 04-13-2023 04-13-2023 Episodic Other ear and sense organ disorders (2 sources) Tinnitus; Translations: [Tinnitus, unspecified ear] Onset: 08-17-1973 08-28-2023 Episodic Other lower respiratory disease (4 sources) Shortness of breath; Translations: [SHORTNESS OF BREATH] Onset: 04-24-2022 Episodic Residual codes; unclassified (4 sources) Other specified postprocedural states; Translations: [Other specified postprocedural states] Onset: 04-04-2022 Episodic Unclassified (1 source) Personal history of COVID-19; Translations: [Personal history of COVID-19] Onset: 04-04-2022 Viral infection (1 source) COVID-19 Onset: 07-23-2021 Resolved: 07-23-2021 Results Test Name Value Interpretation Reference Range Facility Office [facility] 12-14-2023 Follow-up visit [id number] Carlos Sandoval 1950 M Date Provider Department Center 12/14/2023 Piero-AVINASH KOTHARI CARD [facility] Family History Problem Relation Age of Onset Cancer Father Cancer Sister Stroke Father's Sister Family Status - Relation Status Age at Father Sister Father's Sister Level of Service:53795 PA OFFICE/OUTPATIENT ESTABLISHED LOW MDM 20 MIN Normal [facility] CT ANGIO HEAD NECKon 024 CT ANGIO HEAD NECK EXAMINATION: CT MIR O HEAD NECK HISTORY: R/o aneurysm, recent change in intensity of headaches TECHNIQUE: Routine CT of the head without contrast. Spiral high resolution axial images were obtained through the head, neck and superior mediastinum following bolus administration of intravenous contrast for CT angiography. The data was subsequently post-processed utilizing 3D multi-planar reconstructions, 3D maximum intensity projections. All CT scans at this facility use dose modulation, iterative reconstruction, and/or weight based dosing when appropriate to reduce radiation dose to as low as reasonably achievable. COMPARISON: None. RESULT: Acute change: No evidence of an acute infarct or other acute parenchymal process. Hemorrhage: No evidence of acute intracranial hemorrhage. Mass Lesion / Mass Effect: There is no evidence of an intracranial mass or extraaxial fluid collection. No significant mass effect. Chronic change: Scattered patchy foci of low attenuation are present within supratentorial white matter which is a nonspecific finding but likely represents mild microvascular ischemia. Parenchyma: There is mild generalized volume loss. Ventricles: The ventricles are within normal limits of size and configuration for age. Paranasal sinuses and skull base: The visualized paranasal sinuses are grossly clear. Mastoid air cells are clear. The skull base is unremarkable. Soft tissues unremarkable. NECK: Soft tissues: The soft tissue planes are maintained throughout. No evidence of a soft tissue mass in the neck or superior mediastinum. No significant lymphadenopathy is seen. Spine: Multilevel degenerative changes in the spine. Lung apices: Emphysematous changes with diffusely coarsened interstitial lung markings and biapical atelectasis/scarring. Mildly prominent mediastinal lymph nodes, nonspecific. CT ARTERIOGRAM: Extracranial Circulation: Aortic Arch: Mild to moderate atherosclerotic disease without significant stenosis. Carotid Stenosis: Right Common: No significant stenosis. Right Internal Carotid Plaque: Mild to moderate plaque formation Right Internal Carotid Stenosis (% by NASCET Criteria): Less than 50% Left Common: No significant stenosis. Left Internal Carotid Plaque: Moderate plaque formation Left Internal Carotid Stenosis (% by NASCET Criteria): Less than 50% Cervical Vertebral Arteries: Patency: Bilateral Dominance: Right, with the left side hypoplastic. Intracranial Circulation: Anterior Circulation: Mild to moderate calcifications of the distal ICAs, without significant stenosis. Proximal ACAs, and proximal MCAs appear patent without significant stenosis or aneurysm. Vertebrobasilar Circulation: Distal vertebral arteries, basilar artery, and proximal work order clerk appear patent without evidence for significant stenosis or aneurysm. Dural venous sinuses: Visualized dural venous sinuses are patent. IMPRESSION: No acute intracranial process. Patent extracranial and intracranial circulation without evidence for occlusion, significant stenosis, or aneurysm. ELECTRONICALLY SIGNED BY: Aung Watt MD Normal Not Available XR pre/post mri xrayon 10-06 XR pre/post mri xray [facility] [place] [address] [place] [address] MRI Report Signed Patient: Michelle Sandoval MR#: [id number] : 1950 Acct:[id number] Age/Sex: 73 / M ADM Date: 10/06/23 Loc: MR Room: Type: [facility] Attending Dr: Tania Mcclendon MD Copies to: Tania Mcclendon MD Ordering Provider: Tania Mcclendon MD Date of Service: 10/06/23 MR/MR shoulder RT wo con: M25.511 ([id number]) XR/XR pre/post mri xray: M25.511 MRI right Shoulder without contrast TECHNIQUE: Multiplanar T1 and T2-weighted imaging obtained without contrast. HISTORY: Fell injuring right shoulder 2 months ago. Continued pain. COMPARISON: None BONE MARROW EDEMA: Chronic appearing Hill-Sachs deformity identified. FRACTURE: Hill-Sachs deformity. AC JOINT: Moderate arthrosis acromioclavicular joint with inferior marginal spurring compressing the myotendinous portion of the supraspinatus. SHOULDER ROOF LIGAMENTS: The coracoacromial and coracoclavicular ligaments are intact. ROTATOR CUFF: There is a thickening of the supraspinatus tendon with heterogeneous signal changes and nonretracted full-thickness tear near the greater tuberosity insertion. Tendinosis/partial tearing of the subscapularis tendon present. ROTATOR CUFF INTERVAL: Unremarkable BURSAL FLUID: Moderate subacromial subdeltoid bursal fluid corresponds of full-thickness tear. GLENOID: Transverse tear of the anterior inferior portion of the glenoid labrum. Articular cartilage intact. BICEPS LABRAL COMPLEX: Tear long head of biceps tendon. LONG HEAD OF BICEPS TENDON: Retracted tear long head of biceps tendon. GLENOHUMERAL LIGAMENTS: The disruption of the superior glenohumeral ligament noted. The middle glenohumeral ligament is intact. The anterior and posterior glenohumeral ligaments are intact. JOINT EFFUSION: Moderate joint effusion. MUSCLES: Normal signal intensity of the muscles. NO SUBCUTANEOUS TISSUES: No subcutaneous abnormalities identified. MR/MR shoulder RT wo con IMPRESSION: No retracted full-thickness tear of the supraspinatus tendon near the greater tuberosity insertion. Moderate joint effusion. Moderate subacromial subdeltoid bursal fluid. Common clavicular inferior spurring with compression of the myotendinous portion of the supraspinatus tendon. Anterior inferior glenoid labral tear. Extensive Field 2 views of the right shoulder Acromioclavicular spurring. Adequate alignment. No fracture. Unremarkable soft tissues. IMPRESSION: No fracture. Degenerative change. Impression dictated by: Rodolfo Steele M.D.10/06/2023 12:30 PM Dictation Location: [place] [address] Transcribed By: [facility] 10/06/23 1230 Dictated By: Rodolfo Steele DO 10/06/23 1218 Signed By: 10/06/23 1230 Normal [facility] MR SHOULDER LEFT WO IV CONTR Jose Francisco 06-12-2023 MR SHOULDER LEFT WO IV CONTRAST EXAM: MR SHOULDER LEFT WO IV CONTRAST HISTORY: Shoulder pain TECHNIQUE: Multiplanar multisequence MRI of the shoulder was performed Without contrast. COMPARISON: Shoulder MRI February 28, 2022. FINDINGS: Mild degenerative changes of the acromioclavicular joint without undersurface osteophyte formation. The acromion is curved. Coracoclavicular ligament intact. No subacromial/subdeltoi d bursal fluid. Postsurgical changes of rotator cuff repair. Full-thickness tear of distal supraspinatus and infraspinatus tendons at the footprint with retraction of torn fibers up to approximately 5.5 cm from the footprint. High-grade partial-thickness articular surface tear of distal subscapularis tendon. Teres minor tendon is intact. Edema is present within infraspinatus muscle. Mild atrophy and fatty infiltration of supraspinatus, infraspinatus, and subscapularis muscles. High-grade partial tearing of the long head biceps tendon. The biceps tendon resides within the bicipital groove. Anterior superior through posterior superior labral tearing superimposed on diffuse labral degeneration. No well-defined or measurable cartilage defect. Large glenohumeral joint effusion . IMPRESSION: Full-thickness tear of distal supraspinatus and infraspinatus tendons. High-grade partial-thickness articular surface tear of subscapularis tendon. Mild atrophy and fatty infiltration of supraspinatus, infraspinatus, and subscapularis muscles. Complex tearing of the long head biceps tendon. ELECTRONICALLY SIGNED BY: Kelly Cancino DO Normal Not Available Office [facility] 05-22-2023 Follow-up visit [id number] Carlos Sandoval 1950 M Date Provider Department Center 05/22/2023 [id number] EVANS Family History Problem Relation Age of Onset Cancer Father Cancer Sister Stroke Father's Sister Family Status - Relation Status Age at Father Sister Father's Sister Level of Service:07382 PA OFFICE/OUTPATIENT ESTABLISHED MOD MDM 30-39 MIN Normal [facility] Office [facility] 02-11-2023 Follow-up visit [id number] HolderCarlos 1950 M Date Provider Department Center 02/11/2023 [id number] CAMERON [facility] Family History Problem Relation Age of Onset Cancer Father Cancer Sister Stroke Father's Sister Family Status - Relation Status Age at Father Sister Father's Sister Level of Service:68839 PA OFFICE/OUTPATIENT ESTABLISHED MOD MDM 30-39 MIN Normal [facility] 36on 01-16-2023 36 He can reduce back t o 20mg Normal [facility] ANESon 01-13-2023 ANES - Attestation signed by Avinash Kothari MD at 01/13/2023 12:11 PM Avinash Kothari MD, MPH, [facility], [facility], [facility] Interventional Cardiology Pager Email: [email or web address] Patient: Michelle Pinedak Procedure Information Date/Time: 01/13/23 1130 Procedure: TRANSESOPHAGEAL ECHO (ROBINSON) Location: [facility] Vascular Lab Clinical information reviewed: Allergies Meds Physical Exam Airway Mallampati: III TM distance: <3 FB Neck ROM: full Cardiovascular Rhythm: regular Rate: normal Dental - normal exam Pulmonary - normal exam Abdominal - normal exam Anesthesia Plan ASA 3 other (Conscious sedation) Anesthetic plan and risks discussed with patient. Use of blood products discussed with patient who consented to blood products. Plan discussed with fellow. Additional Equipment Requests Normal [facility] HPon 01-13-2023 HP H&P reviewed. The patient was examined and there are no changes to the H&P. [facility] NURSNOTEon 01-13-2023 NURSNOTE RN educated pt on d/ c instructions. RN encouraged pt to voice any questions or concerns. Pt verbalizes no questions or concerns at this time. Pt was wheeled off of unit with all of belongings. [facility] NURSNOTE Pt performed and passed bedside swallow study. [facility] Telephoneon 01-05-2023 Telephone [id number] Carlos Sandoval Byron 1950 M Date Provider Department Center 01/05/2023 CELESTINE STYLES [facility] Heart[facility]AS Family History Problem Relation Age of Onset Cancer Father Cancer Sister Stroke Father's Sister Family Status - Relation Status Age at Father Sister Father's Sister [facility] HPon 01-02-2023 [facility] Electrophysiology Consult Note Reason for visit: 6-month follow-up, TTE for mitral valve regurg HPI: Michelle Sandoval is a 72 y.o. year old with past medical history of A-fib and a flutter s/p ablation 2019, Medtronic loop which is at end-of-life, mild CAD, HFrEF nonischemic cardiomyopathy which was induced by his A-fib. he was seen 6 months ago and was doing well. He had a TTE ordered for evaluation of known moderate mitral valve regurgitation. Back in March 2022 his echo suggested he was likely volume overloaded with mitral valve regurgitation new started on Lasix 20 mg. He appears euvolemic today but he states to me that he has been getting fatigued and short of breath with exertion but this is nothing new over the last few years. he states when he exerts himself and gets short of breath and fatigue he just takes a break and then once he feels better he returns to what ever he is doing. He was started on Lasix 03/2022 he had not noticed any difference in the way he felt regarding his fatigue and FORBES. TTE that was done yesterday has been showing normal LV EF and function proximal septal hypertrophy of LV, grade 2 diastolic dysfunction of LV progressively worsening mitral valve regurgitation now being labeled as moderate to severe, left atrium is now Mildly enlarged enlarged and previous echo showed normal size left atrium. He denies chest pain, orthopnea, LE edema, lightheadedness, dizziness. PMHx: primary cardiomyopathy, atrial fib s/p ablation x2 (1st Dr. Hanley, 2nd by Dr. Nugent 11/2018), mitral valve regurg, mild CAD. ----- Previous per dr. Bermudez Last HPI per Dr. Bermudez: cc; Loop removal 69-year-old gentleman with a past medical history of atrial fibrillation s/p ablation on 11/25/[address] Hanley followed by recurrence of atypical flutter as well as A. fib for which she underwent a second ablation by Dr. Nugent at [facility] on November 2018. He had a Medtronic loop implant which is since approach end-of-life. The last data quite from this did not show any further high atrial rates since her second ablation. Denies palpitations, dizziness/LH, chest pain, dyspnea at rest, orthopnea, PND, LE edema. Patient is doing very well and he is active. He takes his dog out for a walk which is about a mile with no limitations. EKG that was performed on 12/18/2020 shows sinus rhythm with normal intervals Treadmill stress test that was performed on 05/25/2020 reveals a normal EF of 61% with no evidence of ischemia. Echocardiogram that was performed at [facility] on 05/19/2019 showed normal EF with mild MR PMHx: primary cardiomyopathy, atrial fib s/p ablation x2 (1st Dr. Hanley, 2nd by Dr. Nugent 11/2018), mitral valve regurg, mild CAD. 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 -- PMH: Past Medical History: Diagnosis Date Atrial fibrillation (CMS/HCC) Coronary artery disease Heart valve disease Hyperlipidemia Mitral valve regurgitation Primary cardiomyopathy (CMS/HCC) Sleep apnea PSH: Past Surgical History: Procedure Laterality Date ABLATION OF DYSRHYTHMIC FOCUS 12/01/2018 afib ablation CARDIAC CATHETERIZATION 07/28/2018 CARDIOVERSION 06/30/2018 CARPAL TUNNEL RELEASE HERNIA REPAIR SH: Social Determinants of Health Tobacco Use: Medium Risk Smoking Tobacco Use: Former Smokeless Tobacco Use: Never Passive Exposure: Not on file Alcohol Use: Not on file Financial Resource Strain: Not on file Food Insecurity: Not on file Transportation Needs: Not on file Physical Activity: Not on file Stress: Not on file Social Connections: Not on file Intimate Partner Violence: Not on file Depression: Not on file Housing Stability: Not on file Allergies: No Known Allergies Weight: 104kg Visit Vitals Ht 1.854 m (6' 1 ) Wt 104 kg (229 lb) BMI 30.21 kg/m??? Smoking Status Former BSA 2.31 m??? Meds: Current Outpatient Medications on File Prior to Visit Medication Sig Dispense Refill albuterol 90 mcg/actuation inhaler albuterol sulfate HFA 90 mcg/actuation aerosol inhaler ALPRAZolam (Xanax) 0.5 mg tablet Take 0.5 mg by mouth if needed at bedtime. apixaban (Eliquis) 5 mg tablet Take 5 mg by mouth in the morning and at bedtime. atenolol (Tenormin) 50 mg tablet 1 (one) time each day at the same time. atorvastatin (Lipitor) 40 mg tablet Take 40 mg by mouth at bedtime. furosemide (Lasix) 20 mg tablet 1 (one) time each day at the same time. lisinopril 5 mg tablet Take 5 mg by mouth in the morning. nitroglycerin (Nitrostat) 0.[address] 0.4 mg under the tongue. omeprazole (PriLOSEC) [address] capsule 1 capsule 1 (one) time each day at the same time. sodium fluoride-pot nitrate 1.1-5 % paste PreviDent 5000 Sensitive 1.1 %-5 % dental paste brush WITH a pea sized amount TWICE DAILY in place if your regular toothpaste No curre (more content not included)... [facility] Office Visiton 01-02-2023 Follow-up visit [id number] Carlos Sandoval Byron 1950 M Date Provider Department Center 01/02/2023 Flavia6-[facility] Family History Problem Relation Age of Onset Cancer Father Cancer Sister Stroke Father's Sister Family Status - Relation Status Age at Father Sister Father's Sister Level of Service:99435 PA OFFICE/OUTPATIENT ESTABLISHED MOD MDM 30-39 MIN Reason for Visit and Comments: Follow-up [873920] - 6 month follow up and review echo results Normal [facility] CBC AUTO DIFFon 10-01-2022 BASO # 0.0 103/ul Normal 0.0-0.1 [facility] Comment on above: Performed By: #### C BC #### [facility] [address] [place] [address] Dr. Blessing Sage Basophils/100 WBC (Bld) 0.4 % Normal 0.2-2.0 [facility] Comment on above: Performed By: #### C BC #### [facility] [address] [place] [address] Dr. Blessing Sage EO # 0.2 103/ul Normal 0.0-0.7 [facility] Comment on above: Performed By: #### C BC #### [facility] [address] [place] [address] Dr. Blessing Sage Eosinophils/100 WBC (Bld) 2.1 % Normal 0.9-7.0 [facility] Comment on above: Performed By: #### C BC #### [facility] [address] [place] [address] Dr. Blessing Sage Erythrocyte distribution width (RBC) [Ratio] 13.4 % Normal 11.0-15.0 [facility] Comment on above: Performed By: #### C BC #### [facility] [address] [place] [address] Dr. Blessing Sage Hematocrit (Bld) [Volume fraction] 34.6 % Critically low 42.0-54.0 [facility] Comment on above: Performed By: #### C BC #### [facility] [address] [place] [address] Dr. Blessing Sage Hemoglobin (Bld) [Mass/Vol] 12.6 g/dL Critically low 14.0-18.0 [facility] Comment on above: Performed By: #### C BC #### [facility] [address] [place] [address] Dr. Blessing Sage IG # 0.03 10e3/ul Normal 0.00-0.03 [facility] Comment on above: Performed By: #### C BC #### [facility] [address] [place] [address] Dr. Blessing Sage IG % 0.4 % Normal 0.0-0.5 [facility] Comment on above: Performed By: #### C BC #### [facility] [address] [place] [address] Dr. Blessing Sage LYMPH # 0.9 103/ul Critically low 1.2-3.8 [facility] Comment on above: Performed By: #### C BC #### [facility] [address] [place] [address] Dr. Blessing Sage Lymphocytes/100 WBC (Bld) 11.3 % Critically low 20.5-60.0 [facility] Comment on above: Performed By: #### C BC #### [facility] [address] [place] [address] Dr. Blessing Sage MANUAL DIFF REQ NO Normal [facility] Comment on above: Performed By: #### C BC #### [facility] [address] [place] [address] Dr. Blessing Sage MCH (RBC) [Entitic mass] 32.1 pg Normal 25.9-34.0 [facility] Comment on above: Performed By: #### C BC #### [facility] [address] [place] [address] Dr. Blessing Sage MCHC (RBC) [Mass/Vol] 36.4 g/dL Critically high 29.9-35.2 [facility] Comment on above: Performed By: #### C BC #### [facility] [address] [place] [address] Dr. Blessing Sage MCV (RBC) [Entitic vol] 88.3 fL Normal 80.0-94.0 [facility] Comment on above: Performed By: #### C BC #### [facility] [address] [place] [address] Dr. Blessing Sage MONO # 0.7 103/ul Normal 0.3-0.8 [facility] Comment on above: Performed By: #### C BC #### [facility] [address] [place] [address] Dr. Blessing Sage Monocytes/100 WBC (Bld) 8.2 % Normal 1.7-12.0 [facility] Comment on above: Performed By: #### C BC #### [facility] [address] [place] [address] Dr. Blessing Sage NEUT # 6.3 103/ul Normal 1.4-6.5 [facility] Comment on above: Performed By: #### C BC #### [facility] [address] [place] [address] Dr. Blessing Sage Neutrophils/100 WBC (Bld) 77.6 % Critically high 43.0-75.0 [facility] Comment on above: Performed By: #### C BC #### [facility] [address] [place] [address] Dr. Blessing Sage Platelet mean volume (Bld) [Entitic vol] 10.6 fL Normal 9.5-13.5 [facility] Comment on above: Performed By: #### C BC #### [facility] [address] [place] [address] Dr. Blessing Sage PLT 141 103/ul Critically low 150-450 [facility] Comment on above: Performed By: #### C BC #### [facility] [address] [place], [place] [id number] Dr. Blessing Sage RBC 3.92 106/ul Critically low 4.70-6.10 [facility] Comment on above: Performed By: #### C BC #### [facility] [address] [place] [address] Dr. Blessing Sage WBC 8.1 103/ul Normal 4.0-11.0 [facility] Comment on above: Performed By: #### C BC #### [facility] [address] [address] [address] Blessing Sage CRPon 10-01-2022 CRP 13.5 mg/dL Critically high <=1.0 [facility] Comment on above: Performed By: #### C RP, BMP #### [facility] [address] [place] [address] Dr. Blessing Sage PROF CHEM 8 (BAS METB)on Anion gap [Moles/Vol] 14.1 mmol/L Normal [facility] Comment on above: Performed By: #### C RP, BMP #### [facility] [address] [place] [address] Dr. Blessing Sage Calcium [Mass/Vol] 9.0 mg/dL Normal 8.5-10.1 [facility] Comment on above: Performed By: #### C RP, BMP #### [facility] [address] [place] [address] Dr. Blessing Sage Chloride [Moles/Vol] 100 mmol/L Normal 98-107 [facility] Comment on above: Performed By: #### C RP, BMP #### [facility] [address] [place] [address] Dr. Blessing Sage CO2 [Moles/Vol] 23.9 mmol/L Normal 21.0-32.0 [facility] Comment on above: Performed By: #### C RP, BMP #### [facility] [address] [place] [address] Dr. Blessing Sage Creatinine [Mass/Vol] 1.20 mg/dL Normal 0.70-1.30 [facility] Comment on above: Performed By: #### C RP, BMP #### [facility] [address] [place] [address] Dr. Blessing Sage EGFR-AF TAIWANESE >60 Normal >=60 [facility] Comment on above: Performed By: #### C RP, BMP #### [facility] [address] [place] [address] Dr. Blessing Sage EGFR-NON AF TAIWANESE 59 mL/min/1.73m2 Critically low >=60 [facility] Comment on above: Performed By: #### C RP, BMP #### [facility] [address] [place] [address] Dr. Blessing Sage Glucose [Mass/Vol] 199 mg/dL Critically high 74-106 T [facility] Comment on above: Performed By: #### C RP, BMP #### [facility] [address] [place] [address] Dr. Blessing Sage Potassium [Moles/Vol] 4.0 mmol/L Normal 3.5-5.1 [facility] Comment on above: Performed By: #### C RP, BMP #### [facility] [address] [place] [address] Dr. Blessing Sage Sodium [Moles/Vol] 134 mmol/L Critically low 136-145 Th [facility] Comment on above: Performed By: #### C RP, BMP #### [facility] [address] [place] [address] Dr. Blessing Sage Urea nitrogen [Mass/Vol] 13.0 mg/dL Normal 7.0-18.0 [facility] Comment on above: Performed By: #### C RP, BMP #### [facility] [address] [place] [address] Dr. Blessing Sage Urea nitrogen/Creatinine [Mass ratio] 10.8 mg/mg Normal [facility] Comment on above: Performed By: #### C RP, BMP #### [facility] [address] [place] [address] Dr. Blessing Sage SED RATE [facility] 2022 SED RATE 49 mm/hr Critically high <=20 [facility] Comment on above: Performed By: #### S EDR #### [facility] [address] [place] [address] Dr. Blessing Sage COVID/FLU/RSV RT-PCRon 07-31 SARS-CoV-2 (COVID-19) RNA HOA+probe Ql (Unsp spec) Negative [employer] Other COVID/FLU/RSV RT-PCR Positive [employer] [facility] [employer] Other COVID/FLU/RSV RT-PCR Negative [employer] Other US Aorta Screeningon 022 US Aorta Screening FINDINGS: Proximal Aorta1.8 x 2.9 cm Mid Aorta1.4 x 2.4 cm Distal Aorta1.4 x 1.8 cm Right Common Iliac8 x 10 mm Left Common Iliac9 x 10 mm No aneurysmal dilatation is identified. No neighboring fluid collections are seen. IMPRESSION: No significant aneurysmal formation. Report reported and signed by Fidencio Odell on 05/12/2022 1046 Normal [facility] [employer] PROF CHEM 8 (BAS METB)on Anion gap [Moles/Vol] 14.1 mmol/L Normal [facility] Comment on above: Performed By: #### B MP #### [facility] [address] [place] [address] Dr. Blessing Sage Calcium [Mass/Vol] 8.6 mg/dL Normal 8.5-10.1 [facility] Comment on above: Performed By: #### B MP #### [facility] [address] [address] [address] Blessing Sage Chloride [Moles/Vol] 100 mmol/L Normal 98-107 [facility] Comment on above: Performed By: #### B MP #### [facility] [address] [address] [address] Blessing Sage CO2 [Moles/Vol] 26.9 mmol/L Normal 21.0-32.0 [facility] Comment on above: Performed By: #### B MP #### [facility] [address] [address] [address] Blessing Sage Creatinine [Mass/Vol] 1.27 mg/dL Normal 0.70-1.30 [facility] Comment on above: Performed By: #### B MP #### [facility] [address] [address] [address] Blessing Sage EGFR-AF TAIWANESE >60 Normal >=60 [facility] Comment on above: Performed By: #### B MP #### [facility] [address] [address] [address] Blessing Sage EGFR-NON AF TAIWANESE 56 mL/min/1.73m2 Critically low >=60 [facility] Comment on above: Performed By: #### B MP #### [facility] [address] [address] [address] Blessing Sage Glucose [Mass/Vol] 139 mg/dL Critically high 74-106 T [facility] Comment on above: Performed By: #### B MP #### [facility] [address] [address] [address] Blessing Sage Potassium [Moles/Vol] 4.0 mmol/L Normal 3.5-5.1 [facility] Comment on above: Performed By: #### B MP #### [facility] [address] [address] [address] Blessing Sage Sodium [Moles/Vol] 137 mmol/L Normal 136-145 [facility] Comment on above: Performed By: #### B MP #### [facility] [address] [address] [address] Blessing Sage Urea nitrogen [Mass/Vol] 13.0 mg/dL Normal 7.0-18.0 [facility] Comment on above: Performed By: #### B MP #### [facility] [address] [address] [address] Blessing Sage Urea nitrogen/Creatinine [Mass ratio] 10.2 mg/mg Normal [facility] Comment on above: Performed By: #### B MP #### [facility] [address] [address] [address] Blessing Sage CREATININEon 04-10-2022 Creatinine [Mass/Vol] 1.22 mg/dL Normal 0.70-1.30 [facility] Comment on above: Performed By: #### C ALANNA #### [facility] [address] [address] [address] Blessing Sage EGFR-AF TAIWANESE >60 Normal >=60 [facility] Comment on above: Performed By: #### C ALANNA #### [facility] [address] [place], [place] [address] Dr. Blessing Sage EGFR-NON AF TAIWANESE 58 mL/min/1.73m2 Critically low >=60 [facility] Comment on above: Performed By: #### C ALANNA #### [facility] [address] [place], [place] [address] Dr. Blessing Sage CTA HEAD WO W CONon 04-10-20 CTA HEAD WO W CON EXAMINATION: CTA HEA D WO W CON HISTORY: New daily persistent headache ; family history of aneurysm COMPARISON: No relevant comparison available. TECHNIQUE: CT imaging of the head following IV administration of non-ionic contrast. Multi-planar/3-D imaging were created to optimize visualization of vascular anatomy. Dose reduction techniques were achieved by using automated exposure control and/or adjustment of mA and/or kV according to patient size and/or use of iterative reconstruction technique. FINDINGS: VASCULATURE: Atherosclerotic disease within the parasellar carotid arteries, moderate on right, mild on left. No visible aneurysm or vascular malformation. VENTRICLES: No enlargement or displacement. CEREBRUM: No excessive atrophy, mass, or hemorrhage, or abnormal enhancement. CEREBELLUM: No excessive atrophy, mass, or hemorrhage, or abnormal enhancement. BRAINSTEM: No excessive atrophy, mass, or hemorrhage, or abnormal enhancement. BASAL CISTERNS: No subarachnoid hemorrhage or effacement. SKULL: Negative. IMPRESSION: 1. Mild-moderate atherosclerotic disease of the parasellar carotid arteries. Otherwise unremarkable CT angiography of the brain. 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 Order #: [id number] CLICK HERE TO VIEW EXAM ECHOCARDIOGRAM REPORT PROCEDURE: CARDIO PULMONARY ECHOCARDIO M/2D COMP INDICATIONS: Non-ischemic Cardiomyopathy, Paroxysmal atrial fibrillation COMPARISON: None. DESCRIPTION: COMPLETE ECHOCARDIOGRAM Real-time transthoracic echocardiography with 2D, M-mode, spectral and color flow Doppler performed. QUALITY: Technical quality was good. LEFT VENTRICLE: Normal chamber size. Borderline left ventricular hypertrophy. D-shaped septum consistent with right ventricular pressure and/or volume overload. LV EF: Global left ventricular systolic function is normal. Calculated left ventricular ejection fraction is 57% DIASTOLIC: Diastolic function is indeterminate. ATRIAL SEPTUM: Inadequately seen. LEFT ATRIUM: Normal chamber size. RIGHT ATRIUM: Mild dilatation. RIGHT VENTRICLE: Normal chamber size. Normal right ventricular systolic function. TRICUSPID VALVE: Normal mobility and thickness. No regurgitation. Unable to assess right-sided pressures due to lack of measurable tricuspid regurgitation. MITRAL VALVE: Mildly thickened with normal mobility. No mitral valve prolapse. No evidence of mitral valve stenosis. There is no mitral annular calcification. Moderate mitral regurgitation. AORTIC VALVE: Normal trileaflet appearance. No visible sclerosis. Normal leaflet mobility. No evidence of aortic valve stenosis. No aortic regurgitation. AORTIC ROOT: Normal diameter and appearance. PULMONIC VALVE: Normal thickness and mobility. No stenosis. No regurgitation. PERICARDIUM: No evidence of pericardial effusion. IVC: Collapses with inspirations. Normal size. CONCLUSION: Global left ventricular systolic function is normal; visually estimated ejection fraction is 55 to 60%. D-shaped septum consistent with right ventricular pressure and volume overload. Diastolic function is indeterminate. Mild right atrial enlargement. The right ventricle is normal in size and systolic function. Unable to assess right-sided pressures due to lack of measurable tricuspid regurgitation. Moderate mitral regurgitation. Dictated by: Avinash Kothari M.D. on 04/10/2022 at 13:18 Approved by: Avinash Kothari M.D. on 04/10/2022 at 13:25 Normal [facility] MRI Shoulder w/o Lefton - MRI Shoulder w/o Left HISTORY: Shoulder pain TECHNIQUE: Multiplanar multisequence MRI of the shoulder was performed without contrast. COMPARISON: Shoulder radiographs 02/25/2022 FINDINGS: Mild degenerative changes of the acromioclavicular joint without undersurface osteophyte formation. The acromion is curved. Coracoclavicular ligament intact. Small amount of subacromial/subdeltoi d bursal fluid. Postsurgical changes of rotator cuff repair. Full-thickness tear of distal supraspinatus tendon at the footprint with retraction of torn fibers approximately 3.5 cm from the footprint. Tiny intrasubstance tear along the myotendinous junction of infraspinatus. Full-thickness tear of the distal superior half of subscapularis tendon. Teres minor tendon is intact. No atrophy or fatty infiltration of the rotator cuff musculature. Partial thickness tear of intra-articular and extra articular long head biceps tendon. The biceps tendon resides within the bicipital groove. No labral tear identified. No well-defined or measurable cartilage defect identified. Small glenohumeral joint effusion. IMPRESSION: Full-thickness tear of distal supraspinatus tendon at the footprint with retraction of torn fibers approximately 3.5 cm. Tiny intrasubstance tear along the myotendinous junction of infraspinatus. Full-thickness tear of the distal superior half of subscapularis tendon. Partial-thickness tear of the long head biceps tendon. Report reported and signed by KELLY CANCINO on 03/03/2022 1139 Normal [facility] Complete Blood Counton 10-08 Erythrocyte distribution width (RBC) [Ratio] 13.8 % Normal 11.0-15.0 [facility] Specialist Comment on above: Performed By: #### C BC, TSH reflex FT4, CMP, LIPD #### [facility] [address] [place], [place] [id number] Hematocrit (Bld) [Volume fraction] 39.6 % Normal 38.5-50.0 [facility] Specialist Comment on above: Performed By: #### C BC, TSH reflex FT4, CMP, LIPD #### [facility] [address] [place], [place] [id number] Hemoglobin (Bld) [Mass/Vol] 13.6 g/dL Normal 13.0-17.1 [facility] Specialist Comment on above: Performed By: #### C BC, TSH reflex FT4, CMP, LIPD #### [facility] [address] [place], [place] [id number] MCH (RBC) [Entitic mass] 30.5 pg Normal 27.0-33.0 [facility] Specialist Comment on above: Performed By: #### C BC, TSH reflex FT4, CMP, LIPD #### [facility] [address] [place], [place] [id number] MCHC (RBC) [Mass/Vol] 34.3 g/dL Normal 32.0-36.0 [place] [facility] [employer] Comment on above: Performed By: #### C BC, TSH reflex FT4, CMP, LIPD #### [facility] [address] [place], [place] [id number] MCV (RBC) [Entitic vol] 89 fL Normal 80-100 [facility] [employer] Comment on above: Performed By: #### C BC, TSH reflex FT4, CMP, LIPD #### [facility] [address] [place], [place] [id number] Platelet mean volume (Bld) [Entitic vol] 10.90 fL Normal 7.50-12.50 [facility] Specialist Comment on above: Performed By: #### C BC, TSH reflex FT4, CMP, LIPD #### [facility] [address] [place], [place] [id number] Platelets (Bld) [#/Vol] 171 10*3/uL Normal 140-400 [facility] Comment on above: Performed By: #### C BC, TSH reflex FT4, CMP, LIPD #### [facility] [address] [place], [place] [id number] RBC (Bld) [#/Vol] 4.46 10*6/uL Normal 4.20-5.80 [facility] Comment on above: Performed By: #### C BC, TSH reflex FT4, CMP, LIPD #### [facility] [address] [place], [place] [id number] RDW-SD 44.6 fL Normal 37.0-50.0 [facility] Comment on above: Performed By: #### C BC, TSH reflex FT4, CMP, LIPD #### [facility] [address] [place], [place] [id number] WBC (Bld) [#/Vol] 5.1 10*3/uL Normal 3.8-11.0 [place] [employer] Comment on above: Performed By: #### C BC, TSH reflex FT4, CMP, LIPD #### [facility] [address] [place], [place] [id number] Comprehensive Metabolic Pane camille 10-08-2021 Albumin [Mass/Vol] 4.4 g/dL Normal 3.6-5.1 [place] [facility] Comment on above: Performed By: #### C BC, TSH reflex FT4, CMP, LIPD #### [facility] [address] [place], [place] [id number] Albumin/Globulin [Mass ratio] 1.9 {ratio} Normal 1.0-2.5 [facility] Comment on above: Performed By: #### C BC, TSH reflex FT4, CMP, LIPD #### [facility] [address] [place], [place] [id number] ALP [Catalytic activity/Vol] 90 U/L Normal 40-129 [facility] Comment on above: Performed By: #### C BC, TSH reflex FT4, CMP, LIPD #### [facility] [address] [place], [place] [id number] ALT [Catalytic activity/Vol] 30 U/L Normal 9-46 [facility] Comment on above: Result Comment: 07/17 Female reference range changed. Performed By: #### C BC, TSH reflex FT4, CMP, LIPD #### [facility] [address] [place], [place] [id number] Anion gap [Moles/Vol] 19 mmol/L Normal 12-20 [facility] Specialist Comment on above: Result Comment: Effe ctive 08/22/2019 reference range changed. Performed By: #### C BC, TSH reflex FT4, CMP, LIPD #### [facility] [address] [place], [place] [id number] AST [Catalytic activity/Vol] 25 U/L Normal 10-40 [facility] Specialist Comment on above: Performed By: #### C BC, TSH reflex FT4, CMP, LIPD #### [facility] [address] [place], [place] [id number] Bilirubin [Mass/Vol] 0.49 mg/dL Normal 0.30-1.20 [facility] Specialist Comment on above: Performed By: #### C BC, TSH reflex FT4, CMP, LIPD #### [facility] [address] [place], [place] [id number] BUN/CREA 18 Ratio Normal 6-22 [facility] Specialist Comment on above: Performed By: #### C BC, TSH reflex FT4, CMP, LIPD #### [facility] [address] [facility] [place] [id number] Calcium [Mass/Vol] 9.5 mg/dL Normal 8.6-10.2 [place] [employer] Comment on above: Performed By: #### C BC, TSH reflex FT4, CMP, LIPD #### [facility] [address] [place], [place] [id number] Chloride [Moles/Vol] 103 mmol/L Normal 98-107 [facility] Comment on above: Performed By: #### C BC, TSH reflex FT4, CMP, LIPD #### [facility] [address] [place], [place] [id number] CO2 [Moles/Vol] 21 mmol/L Normal 20-31 [facility] Comment on above: Performed By: #### C BC, TSH reflex FT4, CMP, LIPD #### [facility] [address] [facility] [place] [id number] Creatinine [Mass/Vol] 1.0 mg/dL Normal 0.7-1.4 [facility] Comment on above: Performed By: #### C BC, TSH reflex FT4, CMP, LIPD #### [facility] [address] [facility] [id number] eGFRAA 89 mL/min/1.73m2 Normal >60 [facility] Comment on above: Performed By: #### C BC, TSH reflex FT4, CMP, LIPD #### [facility] [address] [facility] [place] [id number] eGFRNAA 73 mL/min/1.73m2 Normal >60 [facility] Comment on above: Performed By: #### C BC, TSH reflex FT4, CMP, LIPD #### [facility] [address] [facility] [place] [id number] Globulin (S) [Mass/Vol] 2.3 g/dL Normal 1.9-3.7 [facility] Comment on above: Performed By: #### C BC, TSH reflex FT4, CMP, LIPD #### [facility] [address] [place], [place] [id number] Glucose [Mass/Vol] 182 mg/dL High 65-99 [place] [employer] Comment on above: Result Comment: For FASTING Glucose --- ADA reference ranges: Normal 65-99 mg/dl Prediabetes 100-125 Diabetes >/= 126 Performed By: #### C BC, TSH reflex FT4, CMP, LIPD #### [facility] [address] [place], [place] [id number] Potassium [Moles/Vol] 4.5 mmol/L Normal 3.5-5.5 [facility] [employer] Comment on above: Performed By: #### C BC, TSH reflex FT4, CMP, LIPD #### [facility] [address] [place], [place] [id number] Protein [Mass/Vol] 6.7 g/dL Normal 6.1-8.1 [place] [employer] Comment on above: Performed By: #### C BC, TSH reflex FT4, CMP, LIPD #### [facility] [address] [place], [place] [id number] Sodium [Moles/Vol] 138 mmol/L Normal 135-146 [place] [employer] Comment on above: Performed By: #### C BC, TSH reflex FT4, CMP, LIPD #### [facility] [address] [place], [place] [id number] Urea nitrogen [Mass/Vol] 18 mg/dL Normal 7-25 [facility] Comment on above: Performed By: #### C BC, TSH reflex FT4, CMP, LIPD #### [facility] [address] [place], [place] [id number] Lipid Panelon 10-08-2021 Cholesterol [Mass/Vol] 171 mg/dL Normal 125-200 [facility] Comment on above: Result Comment: Low risk < 200mg/dL Borderline risk 201-239 mg/dl High risk > or equal to 240 Performed By: #### C BC, TSH reflex FT4, CMP, LIPD #### [facility] [address] [place], [place] [id number] Cholesterol in HDL [Mass/Vol] 32 mg/dL Low >40 [facility] Comment on above: Result Comment: High Cardiovascular Risk HDL <40 mg/dL Low Cardiovascular Risk HDL > or equal to 60 mg/dl Performed By: #### C BC, TSH reflex FT4, CMP, LIPD #### [facility] [address] [place], [place] [id number] Cholesterol in LDL [Mass/Vol] 109 mg/dL Normal [facility] Specialist Comment on above: Result Comment: LDL ATP III CLASSIFICATION LDL less than 100 mg/dl Optimal LDL 100-129 mg/dl Near or above optimal LDL 130-159 Borderline high LDL 160-189 High LDL greater than 189 mg/dl Very High Performed By: #### C BC, TSH reflex FT4, CMP, LIPD #### [facility] [address] [place], [place] [id number] Cholesterol in VLDL [Mass/Vol] 30 mg/dL Normal [facility] Specialist Comment on above: Performed By: #### C BC, TSH reflex FT4, CMP, LIPD #### [facility] [address] [place], [place] [id number] Cholesterol.total/C holesterol in HDL [Mass ratio] 5 {ratio} Normal [facility] Specialist Comment on above: Performed By: #### C BC, TSH reflex FT4, CMP, LIPD #### [facility] [address] [place], [place] [id number] Triglyceride [Mass/Vol] 151 mg/dL High 30-150 [facility] Specialist Comment on above: Result Comment: TRIG ATPIII CLASSIFICATIONS TRIG less than 150 mg/dl Normal TRIG 150-199 mg/dl Borderline High TRIG 200-500 mg/dl High TRIG greather than 500 mg/dl Very High Performed By: #### C BC, TSH reflex FT4, CMP, LIPD #### [facility] [address] [place], [place] [id number] PSA SCREEN (MEDICARE)on 09-18 TPSA 1.030 ng/mL Normal <4.000 [facility] Specialist Comment on above: Result Comment: PSA Test Method: ECLIA/Livia e 601 Performed By: #### P #### [facility] [address] [place], [place] [id number] TSH w/ Reflex to Free T4on 0 10-08-2021 TSH 2.240 uIU/mL Normal 0.400-4.500 [facility] [employer] Comment on above: Performed By: #### C BC, TSH reflex FT4, CMP, LIPD #### [facility] [address] [place], [place] [id number] Complete Blood Counton 08-19 Erythrocyte distribution width (RBC) [Ratio] 13.9 % Normal 11.0-15.0 [facility] Specialist Comment on above: Performed By: #### C BC #### [facility] [address] [place], [place] [id number] Hematocrit (Bld) [Volume fraction] 39.0 % Normal 38.5-50.0 [facility] Specialist Comment on above: Performed By: #### C BC #### [facility] [address] [place], [place] [id number] Hemoglobin (Bld) [Mass/Vol] 13.5 g/dL Normal 13.0-17.1 [facility] Specialist Comment on above: Performed By: #### C BC #### [facility] [address] [place], [place] [id number] MCH (RBC) [Entitic mass] 30.5 pg Normal 27.0-33.0 [facility] Specialist Comment on above: Performed By: #### C BC #### [facility] [address] [place], [place] [id number] MCHC (RBC) [Mass/Vol] 34.6 g/dL Normal 32.0-36.0 [facility] Specialist Comment on above: Performed By: #### C BC #### [facility] [address] [place], [place] [id number] MCV (RBC) [Entitic vol] 88 fL Normal 80-100 [facility] Specialist Comment on above: Performed By: #### C BC #### [facility] [address] [place], [place] [id number] Platelet mean volume (Bld) [Entitic vol] 10.70 fL Normal 7.50-12.50 [facility] Specialist Comment on above: Performed By: #### C BC #### [facility] [address] [place], [place] [id number] Platelets (Bld) [#/Vol] 207 10*3/uL Normal 140-400 [facility] Specialist Comment on above: Performed By: #### C BC #### [facility] [address] [place], [place] [id number] RBC (Bld) [#/Vol] 4.43 10*6/uL Normal 4.20-5.80 [facility] Specialist Comment on above: Performed By: #### C BC #### [facility] [address] [place], [place] [id number] RDW-SD 44.7 fL Normal 37.0-50.0 [facility] Comment on above: Performed By: #### C BC #### [facility] [address] [place], [place] [id number] WBC (Bld) [#/Vol] 6.9 10*3/uL Normal 3.8-11.0 [facility] Comment on above: Performed By: #### C BC #### [facility] [address] [place], [place] [id number] Q - B-TYPE NATRIURETIC (BNP) on 08-19-2021 Natriuretic peptide B (Bld) [Mass/Vol] 20 pg/mL Normal <100 [facility] Comment on above: Order Comment: [facility] Testing performed at: QPT, [facility], [address] [place] [address], [address] [place] [address], [place], [address], Hardware Technician: Bj Casey MD [facility] Collection Date/Time: [facility] Results Received Date/Time: [facility] Reported Date/Time: Result Comment: BNP levels increase with age in the general population with the highest values seen in individuals greater than 75 years of age. Reference: J. Am. Debra. Cardiol. 2002; 40:976-982. Performed By: #### 3 [id number] #### [facility] Default [address] [place] [address] Cardiovascular Lab Reporton 09-15-2018 Cardiovascular Lab Report [facility] Patient Name: Michelle Sandoval [facility] MR #: [id number] Physician: Aung Milian M.D. Medicine Service Date: 09/14/2018 Division of Birthdate: 1950 Cardiology Room #: Adult Cardiovascular Services [facility] [address] [place], [place] [address] Cardiovascular Laboratory Report INDICATIONS: The patient is a gentleman with previous atrial fibrillation ablation. 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 Next, he was on Eliquis and was underwent ROBINSON and cardioversion approximately 5 weeks ago. He has been maintained on Eliquis consistently since then with no missed doses. He presented back in left atrial flutter. I discussed with him options. He is scheduled to see Dr. Mohan Nugent at [facility] in September for ablation. We talked about options of either cardioverting him and admitting him for increased dose of sotalol, however, his heart rate was in the 50s previously when he was in sinus rhythm or simply cardioverting him and being hopeful that he will maintain sinus rhythm until he can see Dr. Nugent. I did tell him if he went out again, we would likely simply add beta jackelin for rate control. Consent was obtained. He was brought to the EP suite. He was monitored. He was given conscious sedation with fentanyl and Versed. Next, when he was adequately sedated, a single 100 joule synchronized biphasic shock returned him to sinus bradycardia with a rate of 55. EKG showed sinus bradycardia with normal conduction intervals. His QT and QTc were acceptable. ASSESSMENT: 1. Conscious sedation. 2. Elective external cardioversion. Electronically Signed by: Aung Alston M.D. 09/16/2018 12:52 P Aung Alston M.D. Date Dict: 09/14/2018/10:31 Brianna/Aung Alston M.D. Date Trans: 09/15/2018 02:20 Brianna/jaydon [id number] cc: Timur Sun D.O. [facility] [place] [address] Normal [facility] BASIC METABOLIC PANELon 08-18 Calcium [Mass/Vol] 8.9 mg/dL Normal 8.6-10.3 [facility] Comment on above: Performed By: #### 5 0103 #### [facility] [address] [place] [address], [place] Chloride [Moles/Vol] 103 mmol/L Normal 98-107 [facility] Comment on above: Performed By: #### 5 0103 #### [facility] [address] [place] [address], [place] CO2 [Moles/Vol] 26 mmol/L Normal 21-31 [facility] Comment on above: Performed By: #### 5 0103 #### [facility] [address] [place] [address], [place] Creatinine [Mass/Vol] 1.23 mg/dL Normal 0.70-1.30 [facility] Comment on above: Performed By: #### 5 0103 #### [facility] [address] [place] [address], [place] GFR/1.73 sq M predicted among blacks MDRD (S/P/Bld) [Vol rate/Area] mL/min/{1.73_m2} Normal >60 [facility] Comment on above: Performed By: #### 5 0103 #### [facility] [address] [place] [address], [place] GFR/1.73 sq M predicted among non-blacks MDRD (S/P/Bld) [Vol rate/Area] 58 ml/min/1.73sq m Abnormal >60 [facility] Comment on above: Performed By: #### 5 0103 #### [facility] [address] [place] [address], [place] Glucose [Mass/Vol] 144 mg/dL High 70-100 [facility] Comment on above: Performed By: #### 5 0103 #### [facility] [address] [place] [address], [place] Potassium [Moles/Vol] 4.5 mmol/L Normal 3.5-5.1 [facility] Comment on above: Performed By: #### 5 0103 #### [facility] [address] [place] [address], [facility] Sodium [Moles/Vol] 134 mmol/L Low 136-145 [facility] Comment on above: Performed By: #### 5 0103 #### [facility] [address] [place] [address], [facility] Urea nitrogen [Mass/Vol] 17 mg/dL Normal 7-25 [facility] Comment on above: Performed By: #### 5 0103 #### [facility] [address] [place] [address], [facility] CBC COMPLETE BLOOD COUNTon 0 - Erythrocyte distribution width (RBC) [Ratio] 14.5 % Normal 11.5-15.0 [facility] Comment on above: Performed By: #### 5 0103 #### [facility] [address] [place] [address], [facility] Hematocrit (Bld) [Volume fraction] 43.4 % Normal 39.0-50.0 [facility] Comment on above: Performed By: #### 5 0103 #### [facility] [address] [place] [address], [facility] Hemoglobin (Bld) [Mass/Vol] 15.0 g/dL Normal 13.0-17.0 [facility] Comment on above: Performed By: #### 5 0103 #### [facility] [address] [place] [address], [facility] MCH (RBC) [Entitic mass] 29.6 pg Normal 27.0-33.0 [facility] Comment on above: Performed By: #### 5 3 #### [facility] [address] [place] [address], [facility] MCHC (RBC) [Mass/Vol] 34.6 g/dL Normal 32.0-35.0 [facility] Comment on above: Performed By: #### 5 0103 #### [facility] [address] [place] [address], [facility] MCV (RBC) [Entitic vol] 85.8 fL Normal 82.0-98.0 [facility] Comment on above: Performed By: #### 5 0103 #### [facility] [address] [facility]. [address] Nucleated RBC/100 WBC (Bld) [Ratio] 0 % Normal 0-0 [facility] Comment on above: Performed By: #### 5 0103 #### [facility] [address] PLAT CNT 227 10*3/uL Normal 150-400 [facility] Comment on above: Performed By: #### 5 0103 #### [facility] [address] [facility]. [address] RBC (Bld) [#/Vol] 5.06 10*6/uL Normal 4.20-5.70 [facility] Comment on above: Performed By: #### 5 0103 #### [facility] [address] [place] [address], [facility] WBC (Bld) [#/Vol] 7.26 10*3/uL Normal 4.00-10.60 [facility] Comment on above: Performed By: #### 5 3 #### [facility] [address] MAGNESIUM BLOODon 07-30-2018 Magnesium [Mass/Vol] 2.1 mg/dL Normal 1.9-2.7 [facility] Comment on above: Performed By: #### 5 3 #### [facility] [address] [facility]. [address] POTASSIUM BLOODon 07-30-2018 Potassium [Moles/Vol] 4.1 mmol/L Normal 3.5-5.1 [facility] Comment on above: Performed By: #### 4 1406, 98299 #### [facility] [address] [place] [address], [facility] BASIC METABOLIC PANELon 12- Calcium [Mass/Vol] 8.6 mg/dL Normal 8.6-10.3 [facility] Comment on above: Order Comment: No: D o not add to previous draw Performed By: #### 1 69, 88229 #### [facility] [address] [place] [address], [facility] Chloride [Moles/Vol] 105 mmol/L Normal 98-107 [facility] Comment on above: Order Comment: No: D o not add to previous draw Performed By: #### 1 69, 42945 #### [facility] [address] [place] [address], [facility] CO2 [Moles/Vol] 25 mmol/L Normal 21-31 [facility] Comment on above: Order Comment: No: D o not add to previous draw Performed By: #### 1 69, 97782 #### [facility] [address] [place] [address], [place] Creatinine [Mass/Vol] 1.08 mg/dL Normal 0.70-1.30 [facility] Comment on above: Order Comment: No: D o not add to previous draw Performed By: #### 1 69, 05689 #### [facility] [address] [place] [address], [place] GFR/1.73 sq M predicted among blacks MDRD (S/P/Bld) [Vol rate/Area] mL/min/{1.73_m2} Normal >60 [facility] Comment on above: Order Comment: No: D o not add to previous draw Performed By: #### 1 69, 36317 #### [facility] [address] [place] [address], [facility] GFR/1.73 sq M predicted among non-blacks MDRD (S/P/Bld) [Vol rate/Area] mL/min/{1.73_m2} Normal >60 [facility] Comment on above: Order Comment: No: D o not add to previous draw Performed By: #### 1 69, 34340 #### [facility] [address] [facility] [place] [address], [facility] Glucose [Mass/Vol] 115 mg/dL High 70-100 [facility] Comment on above: Order Comment: No: D o not add to previous draw Performed By: #### 1 69, 96751 #### [facility] [address] [facility] [place] [address], [facility] Potassium [Moles/Vol] 4.2 mmol/L Normal 3.5-5.1 [facility] Comment on above: Order Comment: No: D o not add to previous draw Performed By: #### 1 69, 52447 #### [facility] [address] [facility] [place] [address], [facility] Sodium [Moles/Vol] 136 mmol/L Normal 136-145 [facility] Comment on above: Order Comment: No: D o not add to previous draw Performed By: #### 1 69, 01579 #### [facility] [address] [facility] [place] [address], [facility] Urea nitrogen [Mass/Vol] 20 mg/dL Normal 7-25 [facility] Comment on above: Order Comment: No: D o not add to previous draw Performed By: #### 1 69, 40179 #### [facility] [address] [facility] [place] [address], [facility] CBC W/DIFFon 07-29-2018 ABS BASOPHILS 0.1 10*3/uL Normal 0.0-0.2 [facility] Comment on above: Order Comment: No: D o not add to previous draw Performed By: #### 5 0103 #### [facility] [address] [place] [address], [facility] ABS IMM GRANS 0.0 10*3/uL Normal 0.0-0.2 [facility] Comment on above: Order Comment: No: D o not add to previous draw Performed By: #### 5 0103 #### [facility] [address] [place] [address], [facility] ABS NEUTROPHILS 4.6 10*3/uL Normal 1.6-7.6 [facility] Comment on above: Order Comment: No: D o not add to previous draw Performed By: #### 5 0103 #### [facility] [address] [place] [address], [facility] Basophils/100 WBC (Bld) 0.7 % Normal 0.0-1.0 [facility] Comment on above: Order Comment: No: D o not add to previous draw Performed By: #### 5 0103 #### [facility] [address] [place] [address], [facility] Eosinophils (Bld) [#/Vol] 0.2 10*3/uL Normal 0.0-0.5 [facility] Comment on above: Order Comment: No: D o not add to previous draw Performed By: #### 5 0103 #### [facility] [address] [place] [address], [facility] Eosinophils/100 WBC (Bld) 3.0 % Normal 0.0-6.0 [facility] Comment on above: Order Comment: No: D o not add to previous draw Performed By: #### 5 0103 #### [facility] [address] [place] [address], [facility] Erythrocyte distribution width (RBC) [Ratio] 14.9 % Normal 11.5-15.0 [facility] Comment on above: Order Comment: No: D o not add to previous draw Performed By: #### 5 0103 #### [facility] [address] [place] [address], [facility] Hematocrit (Bld) [Volume fraction] 36.7 % Low 39.0-50.0 [facility] Comment on above: Order Comment: No: D o not add to previous draw Performed By: #### 5 0103 #### [facility] [address] [place] [address], [facility] Hemoglobin (Bld) [Mass/Vol] 12.5 g/dL Low 13.0-17.0 [facility] Comment on above: Order Comment: No: D o not add to previous draw Performed By: #### 5 0103 #### [facility] [address] [place] [address], [facility] IMMATURE GRANS 0.4 % Normal 0.0-1.0 The [facility] Comment on above: Order Comment: No: D o not add to previous draw Performed By: #### 5 0103 #### [facility] [address] [facility] [place] [address], [facility] Lymphocytes (Bld) [#/Vol] 1.5 10*3/uL Normal 1.2-4.0 [facility] Comment on above: Order Comment: No: D o not add to previous draw Performed By: #### 5 0103 #### [facility] [address] [facility] [place] [address], [facility] Lymphocytes/100 WBC (Bld) 22.0 % Normal 20.0-45.0 [facility] Comment on above: Order Comment: No: D o not add to previous draw Performed By: #### 5 0103 #### [facility] [address] [facility] [place] [address], [facility] MCH (RBC) [Entitic mass] 29.8 pg Normal 27.0-33.0 [facility] Comment on above: Order Comment: No: D o not add to previous draw Performed By: #### 5 0103 #### [facility] [address] [place] [address], [facility] MCHC (RBC) [Mass/Vol] 34.1 g/dL Normal 32.0-35.0 [facility] Comment on above: Order Comment: No: D o not add to previous draw Performed By: #### 5 0103 #### [facility] [address] [place] [address], [facility] MCV (RBC) [Entitic vol] 87.4 fL Normal 82.0-98.0 [facility] Comment on above: Order Comment: No: D o not add to previous draw Performed By: #### 5 0103 #### [facility] [address] [place] [id number], [facility] Monocytes (Bld) [#/Vol] 0.5 10*3/uL Normal 0.1-1.0 [facility] Comment on above: Order Comment: No: D o not add to previous draw Performed By: #### 5 0103 #### [facility] [address] [place] [address], [facility] MONOS 7.8 % Normal 5.0-12.0 [facility] Comment on above: Order Comment: No: D o not add to previous draw Performed By: #### 5 0103 #### [facility] [address] [place] [id number], [facility] Neutrophils/100 WBC (Bld) 66.1 % Normal 40.0-72.0 [facility] Comment on above: Order Comment: No: D o not add to previous draw Performed By: #### 5 0103 #### [facility] [address] [place] [id number], [facility] Nucleated RBC/100 WBC (Bld) [Ratio] 0 % Normal 0-0 [facility] Comment on above: Order Comment: No: D o not add to previous draw Performed By: #### 5 0103 #### [facility] [address] PLAT CNT 174 10*3/uL Normal 150-400 The [facility] Comment on above: Order Comment: No: D o not add to previous draw Performed By: #### 5 0103 #### [facility] [address] RBC (Bld) [#/Vol] 4.20 10*6/uL Normal 4.20-5.70 [facility] Comment on above: Order Comment: No: D o not add to previous draw Performed By: #### 5 0103 #### [facility] [address] [place] [address], [facility] WBC (Bld) [#/Vol] 6.91 10*3/uL Normal 4.00-10.60 [facility] Comment on above: Order Comment: No: D o not add to previous draw Performed By: #### 5 0103 #### [facility] [address] Cardiovascular Lab Reporton 07-29-2018 Cardiovascular Lab Report [facility] Patient Name: Michelle Sandoval [facility] [facility] MR #: [id number] Physician: Aung Magana of [place] Medicine Service Date: 07/28/2018 Division of Birthdate: 1950 Cardiology Room #: 3CD [id number] Adult Cardiovascular Services [place] [address] Cardiovascular Laboratory Report PROCEDURE: Cardioversion. INDICATIONS: Atrial flutter. FELLOW: Dr. Jeferson Long. PROCEDURE IN DETAIL: An informed consent was obtained from the patient after explaining indication, risks, benefits, and alternatives. The patient understood and agreed, and signed the consent form. The patient was brought to the hoisting laborer after being anticoagulated for over six weeks. At this time, synchronized biphasic cardioversion was done with 125 joules of energy. The patient successfully converted to sinus rhythm as evidenced by the EKG done postprocedure. No complications throughout the procedure. Electronically Signed by: Aung Alston M.D. 07/29/2018 11:16 A Aung Alston M.D. I was present for the entire procedure. Date Dict: 07/28/2018/01:14 P/Jeferson Long MD Date Trans: 07/29/2018 05:24 A/danyao [id number] cc: Timur Sun D.O. [address] [facility] [facility] [address] Normal [facility] MAGNESIUM BLOODon 07-29-2018 Magnesium [Mass/Vol] 2.0 mg/dL Normal 1.9-2.7 [facility] Comment on above: Order Comment: No: D o not add to previous draw Performed By: #### 1 0070, 86895 #### [facility] [address] CBC W/DIFFon 07-28-2018 ABS BASOPHILS 0.1 10*3/uL Normal 0.0-0.2 The [facility] Comment on above: Order Comment: No: D o not add to previous draw Performed By: #### 5 0103 #### [facility] [address] ABS IMM GRANS 0.1 10*3/uL Normal 0.0-0.2 The [facility] Comment on above: Order Comment: No: D o not add to previous draw Performed By: #### 5 0103 #### [facility] [address] ABS NEUTROPHILS 5.8 10*3/uL Normal 1.6-7.6 The [facility] Comment on above: Order Comment: No: D o not add to previous draw Performed By: #### 5 0103 #### [facility] [address] [place] [address], [facility] Basophils/100 WBC (Bld) 0.7 % Normal 0.0-1.0 [facility] Comment on above: Order Comment: No: D o not add to previous draw Performed By: #### 5 0103 #### [facility] [address] [place] [address], [place] Eosinophils (Bld) [#/Vol] 0.2 10*3/uL Normal 0.0-0.5 [facility] Comment on above: Order Comment: No: D o not add to previous draw Performed By: #### 5 0103 #### [facility] [address] [place] [address], [facility] Eosinophils/100 WBC (Bld) 2.7 % Normal 0.0-6.0 [facility] Comment on above: Order Comment: No: D o not add to previous draw Performed By: #### 5 0103 #### [facility] [address] [place] [address], [facility] Erythrocyte distribution width (RBC) [Ratio] 14.7 % Normal 11.5-15.0 [facility] Comment on above: Order Comment: No: D o not add to previous draw Performed By: #### 5 0103 #### [facility] [address] [place] [address], [facility] Hematocrit (Bld) [Volume fraction] 41.8 % Normal 39.0-50.0 [facility] Comment on above: Order Comment: No: D o not add to previous draw Performed By: #### 5 0103 #### [facility] [address] [place] [address], [facility] Hemoglobin (Bld) [Mass/Vol] 14.2 g/dL Normal 13.0-17.0 [facility] Comment on above: Order Comment: No: D o not add to previous draw Performed By: #### 5 0103 #### [facility] [address] [place] [address], [facility] IMMATURE GRANS 0.6 % Normal 0.0-1.0 The [facility] Comment on above: Order Comment: No: D o not add to previous draw Performed By: #### 5 0103 #### [facility] [address] [facility] [place] [id number], [facility] Lymphocytes (Bld) [#/Vol] 1.8 10*3/uL Normal 1.2-4.0 [facility] Comment on above: Order Comment: No: D o not add to previous draw Performed By: #### 5 0103 #### [facility] [address] [place] [address], [facility] Lymphocytes/100 WBC (Bld) 21.5 % Normal 20.0-45.0 [facility] Comment on above: Order Comment: No: D o not add to previous draw Performed By: #### 5 0103 #### [facility] [address] [facility] [place] [address], [facility] MCH (RBC) [Entitic mass] 29.3 pg Normal 27.0-33.0 [facility] Comment on above: Order Comment: No: D o not add to previous draw Performed By: #### 5 0103 #### [facility] [address] [facility] [place] [address], [facility] MCHC (RBC) [Mass/Vol] 34.0 g/dL Normal 32.0-35.0 [facility] Comment on above: Order Comment: No: D o not add to previous draw Performed By: #### 5 0103 #### [facility] [address] [facility] [place] [address], [facility] MCV (RBC) [Entitic vol] 86.2 fL Normal 82.0-98.0 [facility] Comment on above: Order Comment: No: D o not add to previous draw Performed By: #### 5 0103 #### [facility] [address] [place] [address], [facility] Monocytes (Bld) [#/Vol] 0.6 10*3/uL Normal 0.1-1.0 [facility] Comment on above: Order Comment: No: D o not add to previous draw Performed By: #### 5 0103 #### [facility] [address] [place] [address], [facility] MONOS 7.0 % Normal 5.0-12.0 [facility] Comment on above: Order Comment: No: D o not add to previous draw Performed By: #### 5 0103 #### [facility] [address] [place] [address], [facility] Neutrophils/100 WBC (Bld) 67.5 % Normal 40.0-72.0 [facility] Comment on above: Order Comment: No: D o not add to previous draw Performed By: #### 5 0103 #### [facility] [address] [place] [address], [facility] Nucleated RBC/100 WBC (Bld) [Ratio] 0 % Normal 0-0 [facility] Comment on above: Order Comment: No: D o not add to previous draw Performed By: #### 5 0103 #### [facility] [address] [place] [id number], [place] PLAT CNT 234 10*3/uL Normal 150-400 [facility] Comment on above: Order Comment: No: D o not add to previous draw Performed By: #### 5 0103 #### [facility] [address] [place] [address], [place] RBC (Bld) [#/Vol] 4.85 10*6/uL Normal 4.20-5.70 [facility] Comment on above: Order Comment: No: D o not add to previous draw Performed By: #### 5 3 #### [facility] [address] [place] [address], [place] WBC (Bld) [#/Vol] 8.56 10*3/uL Normal 4.00-10.60 [facility] Comment on above: Order Comment: No: D o not add to previous draw Performed By: #### 5 0103 #### [facility] [address] [place] [address], [place] COMP METABOLIC PANELon 07-28 Albumin [Mass/Vol] 4.2 g/dL Normal 3.5-5.7 [facility] Comment on above: Order Comment: No: D o not add to previous draw Performed By: #### 1 0070, 83443 #### [facility] [address] [place] [address], [place] ALKALINE PHOSPH 62 IU/L Normal 34-104 [facility] Comment on above: Order Comment: No: D o not add to previous draw Performed By: #### 1 0070, 71884 #### [facility] [address] [place] [address], [place] ALT [Catalytic activity/Vol] 26 U/L Normal 7-52 [facility] Comment on above: Order Comment: No: D o not add to previous draw Performed By: #### 1 0070, 64826 #### [facility] [address] [place] [address], [place] AST [Catalytic activity/Vol] 21 U/L Normal 13-39 [facility] Comment on above: Order Comment: No: D o not add to previous draw Performed By: #### 1 0070, [id number] #### [facility] [address] [place] [address], [place] Bilirubin [Mass/Vol] 0.6 mg/dL Normal 0.3-1.0 [facility] Comment on above: Order Comment: No: D o not add to previous draw Performed By: #### 1 0070, 06703 #### [facility] [address] [place] [address], [place] Calcium [Mass/Vol] 9.4 mg/dL Normal 8.6-10.3 [facility] Comment on above: Order Comment: No: D o not add to previous draw Performed By: #### 1 0, 90406 #### [facility] [address] [place] [address], [place] Chloride [Moles/Vol] 103 mmol/L Normal 98-107 [facility] Comment on above: Order Comment: No: D o not add to previous draw Performed By: #### 1 0, 38193 #### [facility] [address] [place] [address], [place] CO2 [Moles/Vol] 26 mmol/L Normal 21-31 [facility] Comment on above: Order Comment: No: D o not add to previous draw Performed By: #### 1 0, 01247 #### [facility] [address] [place] [address], [place] Creatinine [Mass/Vol] 1.06 mg/dL Normal 0.70-1.30 [facility] Comment on above: Order Comment: No: D o not add to previous draw Performed By: #### 1 0, 55753 #### [facility] [address] [place] [address], [place] GFR/1.73 sq M predicted among blacks MDRD (S/P/Bld) [Vol rate/Area] mL/min/{1.73_m2} Normal >60 [facility] Comment on above: Order Comment: No: D o not add to previous draw Performed By: #### 1 0, 74238 #### [facility] [address] [place] [address], [place] GFR/1.73 sq M predicted among non-blacks MDRD (S/P/Bld) [Vol rate/Area] mL/min/{1.73_m2} Normal >60 [facility] Comment on above: Order Comment: No: D o not add to previous draw Performed By: #### 1 0, 33793 #### [facility] [address] [place] [address], [place] Glucose [Mass/Vol] 110 mg/dL High 70-100 [facility] Comment on above: Order Comment: No: D o not add to previous draw Performed By: #### 1 0, 38388 #### [facility] [address] [place] [address], [place] Potassium [Moles/Vol] 4.2 mmol/L Normal 3.5-5.1 [facility] Comment on above: Order Comment: No: D o not add to previous draw Performed By: #### 1 0, 42369 #### [facility] [address] [place] [address], [place] Protein [Mass/Vol] 6.7 g/dL Normal 6.0-8.3 [facility] Comment on above: Order Comment: No: D o not add to previous draw Performed By: #### 1 0, 28978 #### [facility] [address] [place] [address], [place] Sodium [Moles/Vol] 135 mmol/L Low 136-145 [facility] Comment on above: Order Comment: No: D o not add to previous draw Performed By: #### 1 0, 57592 #### [facility] [address] [place] [address], [place] Urea nitrogen [Mass/Vol] 16 mg/dL Normal 7-25 [facility] Comment on above: Order Comment: No: D o not add to previous draw Performed By: #### 1 0, 64006 #### [facility] [address] [place] [address], [place] History and Physicalon 07-28 History and Physical MR#: [id number] [facility] Pt. Name: Michelle Sandoval Admitted: 07/28/2018 Date of : 1950 Attending Physician: Ceasar Hall MD Room #: 3CD [id number] Discharge Date: HISTORY AND PHYSICAL CHIEF COMPLAINT: The patient admitted by the Cardiology Service for a ROBINSON and cardioversion and sotalol therapy initiation. HISTORY OF PRESENTING ILLNESS: The patient is a 68-year-old male with past medical history significant for poorly controlled atrial fibrillation status post ablation, status post ROBINSON with cardioversion x2, hypertension, hyperlipidemia, was admitted by the Cardiology Service for ROBINSON and cardioversion and sotalol therapy initiation. The patient was diagnosed with atrial fibrillation in September. Since then, he underwent cardioversion x2 and also had an ablation in November 2016. Recently, he had been having recurrent episodes of atrial fibrillation and is also being planned for a repeat ablation. Today, he is admitted by Dr. Alston for a ROBINSON with cardioversion and sotalol therapy initiation. On admission, his blood pressure is stable, heart rate around 106. He is currently in atrial fibrillation. Currently has no symptoms. Basic labs ordered. PAST MEDICAL HISTORY: 1. Poorly-controlled atrial fibrillation status post ablation/status post cardioversion x2. 2. Hypertension. 3. Hyperlipidemia. 4. Chronic anticoagulation on Eliquis. PAST SURGICAL HISTORY: 1. Bilateral carpal tunnel release. 2. Hernia repair. FAMILY HISTORY: Noncontributory. SOCIAL HISTORY: The patient is a past smoker, do not smoke currently or does not use alcohol or illegal. DRUG ALLERGIES: He does not have any drug allergies. CURRENT MEDICATIONS: 1. Amiodarone 200 mg daily. 2. Aspirin 81 mg daily. 3. Lipitor 40 mg daily. 4. Lisinopril 5 mg daily. 5. Toprol-XL 50 mg with breakfast and 25 mg with dinner. 6. Eliquis 5 mg b.i.d. 7. Omeprazole 20 mg daily. 8. Nitroglycerin 0.4 mg sublingual as needed for chest pain. 9. Aldactone 25 mg 0.5 tablets oral daily. 10. Aleve 220 mg 2 tablets as needed for back pain daily. REVIEW OF SYSTEMS: A 14-point review of system was negative except for as noted in the HPI. PHYSICAL EXAMINATION: VITAL SIGNS: Blood pressure 114/70 mmHg, heart rate 106 per minute, irregular, respiratory rate 16 per minute, temperature 97.9, SpO2 99% on room air. GENERAL APPEARANCE: He is a moderately nourished, well-developed male, has no acute distress, pleasant. HEAD: Normocephalic/atrauma tic. EYES: Bilateral pupils 2.5 mm equally reacting to light, bilateral extraocular movements intact, no conjunctival pallor or scleral icterus noted. ENT: Bilateral hearing external ear normal, no tragus tenderness, bilateral hearing normal, bilateral nasal mucosa moist, no congestion, oral mucosa moist, teeth/gums normal. NECK: No jugular venous distention noted, trachea appears to be in midline, no lymphadenopathy. CHEST: Chest wall appears symmetric, no rash, no visible pulsations, chest wall equally moves with respiration. HEART: S1, S2 heard, irregularly irregular rhythm, no S3/S4, no murmurs, rubs, or gallops. LUNGS: Clear to auscultation in both anterior and posterior lung villarreal. Respirations regular, no wheezing or rales. ABDOMEN: Soft, nontender, bowel sounds active, no masses palpable, bilateral inguinal orifices clear, abdominal scar intact. BACK: Spinal curvature normal, no kyphoscoliosis, no CVA tenderness. EXTREMITIES: All 4 extremities appear normal, no pedal edema, no rash or skin discoloration, capillary refill less than 2 seconds. NEUROLOGY: He is alert and oriented x3, speech normal, cranial nerves II to XII intact, motor strength 5/5 in both upper and lower extremities, reflexes 2+ bilateral biceps, 2+ bilateral knee jerk, gait not assessed, sensation normal in all 4 extremities. PERIPHERAL PULSES: 2+ bilateral radial, 2+ dorsalis pedis/posterior tibial. PSYCHIATRIC: His mood and judgment appears to be good, denies suicidal ideation, his affect appears to be normal. DIAGNOSTIC TEST: Basic labs ordered. ASSESSMENT/PLAN: Admit to Medicine Service D in step-down unit. 1. Poorly controlled atrial fibrillation. The patient is admitted here by the Cardiology service for a ROBINSON and cardioversion and sotalol therapy initiation. Basic labs CBC and CMP ordered. Continue telemetry monitoring. Planned for a ROBINSON with cardioversion today. He received a sotalol morning dose today. Repeat EKG in 2 hours. Monitor QTc. Monitor electrolytes and replace as needed. Resume home dose Eliquis 5 mg b.i.d. Consulted Cardiology. Resume only morning dose of Toprol-XL 50 mg hold night dose 25 mg. 2. Hypertension/hyperlip idemia. Resume home dose lisinopril and Toprol-XL 50 mg only in the morning, Lipitor 40 mg. Monitor vitals every 6 hours. DVT prophylaxis. He is on therapeutic anticoagulation. GI prophylaxis. Protonix 40 mg daily. Plan of care discussed with the patient, Cardiology service, RN. Electronically Signed by: Ceasar Hall MD 07/30/2018 10:31 A Ceasar Hall MD Date Dict: 07/28/2018/12:26 P/Ceasar Hall MD Date Trans: 07/28/2018 01:49 P/mmo [id number] Normal [facility] MAGNESIUM BLOODon 07-28-2018 Magnesium [Mass/Vol] 2.1 mg/dL Normal 1.9-2.7 [facility] Comment on above: Order Comment: No: D o not add to previous draw Performed By: #### 1 0070, 13271 #### [facility] [address] Cardiovascular Lab Reporton 07-01-2018 Cardiovascular Lab Report [facility] Patient Name: Michelle Sandoval [facility] MR #: [id number] Physician: Sami Brown MD Department of Service Date: 06/30/2018 Medicine Birthdate: 1950 Division of Room #: CC Cardiology Adult Cardiovascular Services [facility] [address] [place] [address] Cardiovascular Laboratory Report PROCEDURES: Transesophageal echocardiogram and cardioversion. INDICATION: Atrial flutter. FELLOW: Alexey Hobbs M.D. PROCEDURE DETAILS: An informed consent was obtained from the patient after explaining indication, risks, benefits, and alternatives. The patient understood and agreed and signed the consent form. The patient was brought to the hoisting laborer and ROBINSON was performed under conscious sedation. The patient obtained a total of 7 mg of Versed and 50 mcg of fentanyl during the procedure. The transesophageal echocardiogram did not show any thrombus in the left atrial appendage. Full ROBINSON reported elsewhere. After the transesophageal echocardiogram, synchronized biphasic cardioversion was done with 360 joules of energy. The patient successfully converted to sinus rhythm as evidenced by the EKG done postprocedure. No complications throughout the procedure. Electronically Signed by: Sami Brown MD 07/23/2018 04:31 P Saim Brown MD I was present for the entire procedure. Date Dict: 06/30/2018/05:24 P/Alexey Hobbs MD Date Trans: 07/01/2018 03:28 A/jaydon [id number] cc: Timur Sun D.O. [address] [facility] [address] [facility] [address] [facility] Vital Signs Date Time Vital Sign Value Performing Clinician Facility 09-28-2023 08:30-0500 Body height 185.4 cm Aung Rosas MD Work Phone: [facility] 09-28-2023 08:30-0500 Body mass index (BMI) [Ratio] 29.29 kg/m2 Aung Rosas MD Work Phone: [facility] 09-28-2023 08:30-0500 Body weight 100.7 kg Aung Rosas MD Work Phone: [facility] 09-28-2023 08:30-0500 Diastolic blood pressure 70 mm[Hg] Aung Rosas MD Work Phone: [facility] 09-28-2023 08:30-0500 Heart rate 68 /min Aung Rosas MD Work Phone: [facility] 09-28-2023 08:30-0500 SaO2% (BldA) [Mass fraction] 99 % Aung Rosas MD Work Phone: [facility] 09-28-2023 08:30-0500 Systolic blood pressure 132 mm[Hg] Aung Rosas MD Work Phone: [facility] 07-31-2022 12:15-0500 Body height 185.42 cm Nida Mccullough Other [facility] Other 07-31-2022 12:15-0500 Body mass index (BMI) [Ratio] 29.02 kg/m2 Nida Mccullough Other [facility] Other 07-31-2022 12:15-0500 Body temperature 98.2 [degF] Nida Mccullough Other [facility] Other 07-31-2022 12:15-0500 Body weight 99.79 kg Nida Mccullough Other [facility] Other 07-31-2022 12:15-0500 Diastolic blood pressure 52 mm[Hg] Nida Mccullough Other [facility] Other 07-31-2022 12:15-0500 Respiratory rate 18 /min Nida Mccullough Other [facility] Other 07-31-2022 12:15-0500 SaO2% (BldA) [Mass fraction] 100 % Nida Mccullough Other [facility] Other 07-31-2022 12:15-0500 Systolic blood pressure 117 mm[Hg] Nida Mccullough Other [facility] Other 07-23-2021 14:00-0500 Body height 185.42 cm Key Borjas Other [facility] Other 07-23-2021 14:00-0500 Body mass index (BMI) [Ratio] 29.02 kg/m2 Key Borjas Other [employer] Other 07-23-2021 14:00-0500 Body temperature 98.1 [degF] Key Borjas Other [employer] Other 07-23-2021 14:00-0500 Body weight 99.79 kg Key Borjas Other [employer] Other 07-23-2021 14:00-0500 SaO2% (BldA) [Mass fraction] 98 % Key Borjas Other [employer] Other Encounters Encounter Date Encounter Type Care Provider Facility Start: 12-14-2023 End: 12-14-2023 ambulatory AB [facility] Start: 12-10-2023 End: 12-10-2023 ambulatory AUNG ROSAS Not Available Start: 11-26-2023 End: 11-27-2023 ambulatory DIANA CAGE Not Available Start: 10-06-2023 End: 10-06-2023 ambulatory Tania Mcclendon Facility:[facility] Start: 10-06-2023 End: 10-06-2023 ambulatory II Aung Rosas Work Phone: [facility] Work Phone: Start: 10-06-2023 End: 10-06-2023 Patient encounter procedure II Aung Rosas Work Phone: [facility] [place] Work Phone: Start: 09-28-2023 End: 09-28-2023 ambulatory AUNG ROSAS Not Available Start: 09-28-2023 End: 09-28-2023 Assay of hemosiderin, quant Aung Rosas MD Work Phone: [facility] Work Phone: Start: 09-28-2023 End: 09-28-2023 Patient encounter procedure Aung Rosas MD Work Phone: [facility] Comment on above: Routine general medi billy examination at health care facility (Primary Dx); Unspecified inflammatory spondylopathy, 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); Thoracoabdominal aortic ectasia (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); Type 2 diabetes mellitus with stage 2 chronic kidney disease, with long-term current use of insulin ([facility]/HCC); Chronic kidney disease, stage 2 (mild) (N18.2); Chronic systolic (congestive) heart failure (I50.22); Obstructive sleep apnea syndrome; Bronchiectasis without complication ([facility]/HCC); Primary cardiomyopathy ([facility]/HCC); HFrEF (heart failure with reduced ejection fraction) ([facility]/HCC); Persistent atrial fibrillation (HCC) ([facility]); S/P ablation of atrial fibrillation; Atherosclerosis of both carotid arteries; GERD without esophagitis; Stage 3a chronic kidney disease (HCC) ([facility]/HCC); Spondylolisthesis, lumbar region; Mixed hyperlipidemia ([facility]/HCC) Start: 09-15-2023 End: 09-15-2023 ambulatory BRADEN GALICIA Not Available Start: 08-28-2023 End: 08-28-2023 ambulatory DIANA CAGE Not Available Start: 07-21-2023 End: 07-21-2023 ambulatory JAYDE HELMS Not Available Start: 07-20-2023 End: 07-20-2023 ambulatory YANN KANG Not Available Start: 06-30-2023 End: 06-30-2023 ambulatory JAYDE HELMS Not Available Start: 05-22-2023 End: 05-22-2023 ambulatory IZABELLA [facility] Start: 02-11-2023 End: 02-11-2023 ambulatory [facility] Start: 01-13-2023 End: 01-14-2023 ambulatory [facility] Start: 01-02-2023 End: 01-02-2023 ambulatory [facility] Start: 10-01-2022 End: 10-01-[address] AUNG ROSAS Facility:[facility] Start: 09-29-2022 End: 09-29-[address] ELMER ELLINGTON Facility:[facility] Start: 07-31-2022 End: 07-31-2022 ambulatory Nida Mccullough Other [employer] Other Start: 07-31-2022 Office outpatient vi sit 25 minutes Nida Mccullough [facility] Start: 04-30-2022 ambulatory AUNG ROSAS II Facilit y:[facility] Start: 04-24-2022 End: 04-25-[address] DOCTOR WHYTE Facility:[facility] Start: 04-18-2022 ambulatory AUNG ROSAS II Facilit y:[facility] Start: 04-15-2022 ambulatory AUNG ROSAS II Facilit y:[facility] Start: 04-10-2022 End: 04-11-[address] AUNG ROSAS Facility:[facility] Start: 04-04-2022 ambulatory PADMAJA SAMUELS Facility:[facility] Start: 07-23-2021 End: 07-23-2021 ambulatory Key Borjas Other [employer] Other Start: 07-23-2021 Office outpatient vi sit 15 minutes Key Borjas [facility] Start: 09-14-2018 End: 09-15-2018 Patient encounter procedure AUNG ALSTON Facility:[facility] Start: 07-28-2018 End: 07-30-2018 Evaluation and management of inpatient TIMUR SUN Facility:[facility] Start: 06-30-2018 End: 06-30-2018 Patient encounter procedure Radha Dempseyall [facility] Comment on above: Referral Start: 06-29-2018 End: 06-29-2018 Patient encounter procedure Emily Palacios [facility] Comment on above: Referral Start: 06-24-2018 End: 06-24-2018 Patient encounter procedure Other Other NOTES/RESULTS Start: 06-17-2018 End: 06-17-2018 Patient encounter procedure Other Other NOTES/RESULTS Start: 11-03-2017 End: 11-03-2017 Patient encounter procedure Other Other NOTES/RESULTS Procedures Date Procedure Procedure Detail Performing Clinician Start: 10-06-2023 MRI of right shoulder I I Aung Rosas Work Phone: Start: 10-06-2023 XR pre/post mri xray II Aung Rosas Work Phone: Start: 07-28-2019 Colonoscopy Aung argueta MD Work Phone: Start: 07-28-2018 Religious of Cardi ac Rhythm, Single AUNG ALSTON Start: 06-24-2018 End: 06-24-2018 LABS (OUTSIDE) Other Other Start: 06-17-2018 End: 06-17-2018 OUTSIDE PROCEDURES Other Other Start: 11-03-2017 End: 11-03-2017 Echocardiography Other Other Plan of Treatment Date Care Activity Detail Author Start: 07-28-2029 Screening for malignant neoplasm of colon [facility] Start: 01-07-2025 Glaucoma screening Diabetes: Retinopathy Screening [facility] Start: 09-28-2024 Medicare Annual Wellness (AWV) Medicare Annual Wellness (AWV) [facility] Start: 07-21-2024 End: 07-21-2024 Patient encounter procedure 07/21/2024 8:30 AM EST Office Visit [facility] [address] [place] [id number] Yann Kang MD [address] [place] [address] [facility] Start: 11-27-2023 Hemoglobin A1c measurement Diabetes: Hemoglobin A1C [facility] Start: 04-17-2018 Influenza vaccination INFLUENZA VACCINE (#1) [facility] Work Phone: Start: 2014 Pneumococcal vaccination PNEUMOCOCCAL VACCINE SERIES (1 of 2 - PCV13) [facility] Work Phone: Start: 1999 Prostate specific antigen measurement PROSTATE CANCER SCREENING DISCUSSION [facility] Work Phone: Start: 1999 Protein mass conc COLON CANCER SCREENING DISCUSSION [facility] Work Phone: Start: 1989 Fasting lipid profile LIPID SCREENING [facility] Work Phone: Start: 1968 Third diphtheria, tetanus and acellular pertussis (DTaP) vaccination TDAP (ADULT) [facility] Work Phone: Start: 1967 Tetanus vaccination TETANUS [facility] Work Phone: Start: 1949 Screening for malignant neoplasm of colon [facility] Start: 1949 Hepatitis C antibody, confirmatory test HEPATITIS C VIRUS SCREENING [facility] Work Phone: Immunizations Immunization Date Immunization Notes Care Provider [facility] 07-16-2023 Influenza, Seasonal, Quadrivalent, Adjuvanted Aung Rosas MD Work Phone: [facility] Work Phone: 2022 Influenza, Seasonal, Quadrivalent, Adjuvanted Aung Rosas MD Work Phone: [facility] 05-27-2021 Influenza, Seasonal, Quadrivalent, Adjuvanted Aung Rosas MD Work Phone: [facility] 05-15-2020 Influenza, Seasonal, Quadrivalent, Adjuvanted Aung Rosas MD Work Phone: [facility] 05-15-2020 pneumococcal conjuga te vaccine, 13 valent Aung Rosas MD Work Phone: [facility] 05-15-2020 Smallpox Monkeypox, Live Attenuated, Preservative Free Aung Rosas MD Work Phone: [facility] 10-11-2019 tetanus toxoid, redu alycia diphtheria toxoid, and acellular pertussis vaccine, adsorbed Aung Rosas MD Work Phone: [facility] 09-14-2019 zoster vaccine recombinant Aung Rosas MD Work Phone: [facility] 05-17-2019 Seasonal, quadrivale nt, recombinant, injectable influenza vaccine, preservative free Aung Rosas MD Work Phone: [facility] 05-17-2019 zoster vaccine recombinant Aung Rosas MD Work Phone: [facility] 06-17-2018 influenza, injectabl e, quadrivalent, preservative free Aung Rosas MD Work Phone: [facility] 06-17-2018 pneumococcal polysaccharide vaccine, 23 valent Aung Rosas MD Work Phone: [facility] 07-08-2017 influenza, injectabl e, quadrivalent, preservative free Aung Rosas MD Work Phone: [facility] Payers Date Payer Category [facility] [id number] 2023 Self-pay 2023 Unknown [id number] 2016 Medicare MEDICARE MEDICAR E PART B [id number] 2016-Present [address] [address] [place] [address] Medicare [id number] 2016 Unknown BCBS BCBS [id number] 2016-Present [phone] [address] [place] [address] [id number] 1959 Medicare [id number] 1959 Unknown [id number] 1959 Unknown [id number] 1949 Unknown [id number] .[id number]. 2.647 1949 Unknown [id number] .16.840.1.389281.3.579. 2.647 1949 Unknown [id number] 2.16.840.1.614312.3.579. 2.594 1949 Unknown [id number] 2.16.840.1.217525.3.579. 2.594 1949 Unknown [id number] 2.16.840.1.094969.3.579. 2.594 1949 Unknown [id number] 2.16.840.1.444219.3.579. 2.594 1949 Unknown [id number] 2.16.840.1.678182.3.579. 2.593 1949 Unknown [id number] 2.16.840.1.592406.3.579. 2.593 1949 Unknown [id number] 2.16.840.1.268312.3.579. 2.593 1949 Unknown [id number] 2.16.840.1.917465.3.579. 2.593 1949 Unknown [id number] 2.16.840.1.824384.3.579. 2.593 1949 Unknown [id number] 2.16.840.1.899558.3.579. 2.1259 1949 Unknown [id number] 2.16.840.1.627161.3.579. 2.1259 1949 Unknown [id number] 2.16.840.1.653486.3.579. 2.1259 1949 Unknown [id number] 2.16.840.1.137788.3.579. 2.1259 1949 Unknown [id number] 2.16.840.1.014364.3.579. 2.1259 1949 Unknown [id number] 2.16.840.1.968275.3.579. 2.1259 1949 Unknown [id number] 2.16.840.1.086796.3.579. 2.1259 1949 Unknown [id number] 2.16.840.1.999485.3.579. 2.1259 Unknown [id number] 2.16.840.1.739597.3.579. 2.531 Social History Date Type Detail [facility] Work Phone: Start: 1950 Sex Assigned At Not on file [facility] Work Phone: Start: 09-28-2023 Sex Assigned At N chip [employer] Other Start: 04-13-2023 Tobacco smoking stat [facility] Ex-smoker [facility] End: 08-17-1998 History of tobacco use Current smoker [facility] End: 08-17-1998 History of tobacco use Cigarette Smoker [facility] Start: 04-13-2023 End: 09-28-2023 Cigarettes smoked current (pack per day) - Reported 1 [facility] Start: 04-13-2023 Tobacco use and exposure Smokeless tobacco non-user [facility] Start: 09-28-2023 Alcohol intake Ex-drinker (finding) [facility] Start: 08-27-2023 Alcohol Comment Caffeine intak e : coffee [facility] Start: 1950 Sex Assigned At Male F [facility] Clinical Notes 07-23-2021 to 12-14-2023 Aung Rosas MD - 09/28/2023 8:30 AM EST Note Date & Type Note Facility 12-14-2023 Note [facility] Cardiology Clinic Note Chief Complaint: Patient here for 6 mo follow up CAD, PAF, and mitral valve regurgitation. Says he recently saw PCP for headaches, and he advised him to cut back on lasix. He hasn't taken it the past few days and his headaches have subsided. Has intermittent feet swelling, and sometimes gets lightheaded. Denies recurrent chest pain since ED visit in Mar 2023. HPI: Michelle Sandoval is a 73 y.o. male with a history of non-obstructive coronary artery disease (angiography 2017), PAF s/p ablation, non-ischemic cardiomyopathy heart failure improved ejection fraction, hypertension, and mixed hyperlipidemia seen in follow-up. Doing well; no major cardiac symptoms May need shoulder surgery Cardiology ROS: Review of Systems Cardiovascular: Positive for dyspnea on exertion and leg swelling (feet, minimal). Musculoskeletal: Positive for arthritis and joint pain. Neurological: Positive for headaches and light-headedness. All other systems reviewed and are negative. Past Medical History He has a past medical history of Atrial fibrillation (CMS/HCC), Coronary artery disease, Heart valve disease, Hyperlipidemia, Mitral valve regurgitation, Primary cardiomyopathy (CMS/HCC), and Sleep apnea. Surgical History He has a past surgical history that includes Carpal tunnel release; Hernia repair; Ablation of dysrhythmic focus (12/01/2018); Cardiac catheterization (07/28/2018); and Cardioversion (06/30/2018). Social History He reports that he quit smoking about 25 years ago. His smoking use included cigarettes. He has never used smokeless tobacco. He reports current alcohol use. He reports that he does not use drugs. Family History Family History Problem Relation Name Age of Onset Cancer Father Cancer Sister Stroke Father's Sister Allergies Patient has no known allergies. Medications Current Outpatient Medications: ALPRAZolam (Xanax) 0.5 mg tablet, Take 0.5 mg by mouth if needed at bedtime., Disp: , Rfl: apixaban (Eliquis) 5 mg tablet, Take 5 mg by mouth in the morning and at bedtime., Disp: , Rfl: atenolol (Tenormin) 50 mg tablet, 1 (one) time each day at the same time., Disp: , Rfl: atorvastatin (Lipitor) 40 mg tablet, Take 40 mg by mouth at bedtime., Disp: , Rfl: furosemide (Lasix) 20 mg tablet, Take 2 tablets (40 mg) by mouth in the morning. (Patient taking differently: Take 20 mg by mouth in the morning.), Disp: 60 tablet, Rfl: 11 lisinopril 5 mg tablet, Take 5 mg by mouth in the morning., Disp: , Rfl: nitroglycerin (Nitrostat) 0.4 mg SL tablet, Place 0.4 mg under the tongue., Disp: , Rfl: omeprazole (PriLOSEC) [address] capsule, 1 capsule 1 (one) time each day at the same time., Disp: , Rfl: Last Recorded Vitals BP 130/74 (BP Location: Right arm, Patient Position: Sitting) Pulse 71 Ht 1.854 m (6' 1 ) Wt 98.4 kg (217 lb) SpO2 98% BMI 28.63 kg/m??? Physical Examination: GENERAL: alert and oriented x3, well developed, in no acute distress. HEAD: atraumatic, normocephalic. EYES: RITA, EOMI. NECK: trachea midline, no JVD present, no carotid bruits present. CARDIAC: S1, S2 present. RRR. No murmur, rubs, or gallops. RESPIRATORY: CTAB, no increased effort of breathing, no rales, rhonchi, or wheezing. ABDOMEN: soft, nontender, nondistended. EXTREMITIES: no lower extremity edema, peripheral pulses are 2+ bilaterally. No rash/skin discoloration present. NEURO: strength/sensation equal and symmetric in bilateral upper and lower extremities. PSYCH: appropriate mood, affect, and judgement. Recent Labs 04/07/2023 WBC 4.8, Hgb 12.5, Hct 34.6, Plt 129 Sodium 126, potassium 3.6, Cl 97, BUN 12, Scr 1.24, eGFR >60 %, magnesium 1.9 TC 168, TG 249, LDL 87, HDL 32 04/06/2023 Sodium 134 01/09/2023 TC 179, LDL 110, HDL 35, TG 180 Imaging and other tests AFIB ablation 2019 FINDINGS: 1. AFIB ABLATION 2. ELECTROPHYSIOLOGY STUDY WITH AND WITHOUT DRUG INFUSION 3. INTRACARDIAC ECHOCARDIOGRAPHY ABLATION PROCEDURE: BASELINES NSR PATIENT UNDERWENT DOUBLE TRANSSEPTAL PUNCTURE UNDER ICE GUIDANCE WITH EXTENSIVE COMPLEX ELECTRO-ANATOMIC MAPPING OF THE PA, PV'S AND SVC. WE PERFORMED A SUCCESSFUL WIDE AREA CIRCUMFERENTIAL ABLATION (WACA) WITH CONFIRMATION OF PV ISOLATION WITH THE MULTIPOLAR MAPPING CATHETER. NO CHANGE IN PERICARDIAL SPACE PRE-, POST-PROCEDURE. CONFIRMATION OF LINES VIA PACING. ADDITIONAL ROOF AND INFERIOR LINE, MV FLUTTER ISTHMUS ABLATION AND CTI LINE ELECTROPHYSIOLOGY STUDY: 1. NORMAL SINUS NODE FUNCTION 2. NORMAL AVN AND INFRANODAL CONDUCTION 3. NORMAL DECREMENTAL-CONCENTRIC VA CONDUCTION WITHOUT AP CONDUCTION 4. INTACT ANTERGRADE CONDUCTION WITHOUT INDUCIBLE SVT ON ISUPREL. COMPLICATIONS: NONE RECOMMENDATIONS: 1. CONTINUE SOTALOL UNTIL FOLLOW UP. 2. MEDROL DOSE CALDERON 3. NEXIUM BID FOR THIRTY DAYS 4. ROUTINE POST AF ABLATION FOLLOW UP 5. REMOVE SUTURES FROM GROIN IN 2 HOURS Stress test (more content not included)... [facility] 09-28-2023 History of Present illness Narrative HPI Follow-up Additional comments: Pt states he is still on the steroids recently given but states he still has a non productive cough pt states cough started 1 month ago Med Refill Additional comments: nitroglycerin-- DM warren Last edited by Jocy Whitehead LPN on 09/28/2023 8:46 AM. Subjective : Chief Complaint: Michelle Sandoval is an 73 y.o. male here for an annual wellness visit. I have reviewed and reconciled the medication list with the patient today. Current Outpatient Medications Medication Sig Dispense Refill ALPRAZolam (Xanax) 0.5 MG tablet Take 1 tablet (0.5 mg) by mouth 2 (two) times a day as needed for anxiety 30 tablet 0 atenolol (Tenormin) 50 MG tablet Take 50 mg by mouth in the morning. atorvastatin (Lipitor) 40 MG tablet Take 40 mg by mouth in the morning. Eliquis 5 MG tablet Take 5 mg by mouth in the morning and 5 mg before bedtime. furosemide (Lasix) 20 MG tablet Take 20 mg by mouth in the morning. lisinopril 5 MG tablet Take 5 mg by mouth in the morning. Multiple Vitamin (Multi Vitamin) tablet 1 (one) time each day at the same time. omega-3 (Fish Oil) 1000 MG capsule Take 1,000 mg by mouth in the morning. omeprazole (PriLOSEC) [address] capsule Take 1 capsule by mouth in the morning. Take before meals. tiZANidine (Zanaflex) 4 MG tablet Take 1 tablet (4 mg) by mouth 2 (two) times a day as needed for muscle spasms 60 tablet 0 No current facility-administered medications for this visit. Review of Systems Constitutional: Negative for appetite change, fatigue and unexpected weight change. Respiratory: Negative for cough, chest tightness and shortness of breath. Cardiovascular: Negative for chest pain, palpitations and leg swelling. Gastrointestinal: Negative for abdominal pain, nausea and vomiting. Genitourinary: Negative for difficulty urinating, hematuria and urgency. List of current healthcare providers: Patient Care Team: Aung Rosas MD as PCP - General (Internal Medicine) Aung Rosas MD as PCP - ACO [employer] Medicare Annual Visit Over the past 2 weeks, how often have you been bothered by any of the following problems? Little interest or pleasure in doing things: Not at all Feeling down, depressed, or hopeless: Not at all Patient Health Questionnaire-2 Score: 0 Feliz Fall Risk History of Falling, Immediate or Within 3 Months: No Secondary Diagnosis: No Ambulatory Aid: Walks without aid/bedrest/nurse assist Health Risk Assessment Form Do you need help eating, bathing, using the toilet, dressing, or getting around your home?: No Can you prepare your own meals?: Yes Can you do your own housework without help?: Yes Can you shop for groceries or clothes without help?: Yes Do you exercise for about 20 minutes 3 or more days a week?: Yes How confident are you that you can control and manage most of your health problems?: Very confident Can you mange your money, credit cards and accounts, pay bills and taxes?: Yes Cognitive Screening Three Word Registration: Banana, [place], Chair Clock Drawing: Normal Clock - 2 Three Word Recall: All 3 words correct - 3 Total Score (0-5 Points): 5 Pain Assessment Pain Score: 6 Advance Care Planning Do you have a living will?: No Do you have a medical power of workers compensation defense attorney?: No Objective : BP 132/70 Pulse 68 Ht 6' 1 Wt 222 lb SpO2 99% BMI 29.29 kg/m No results found. Physical Exam Constitutional: General: He is not in acute distress. Appearance: He is obese. HENT: Head: Normocephalic and atraumatic. Eyes: General: No scleral icterus. Neck: Comments: Left posterior neck with mobile, non-tender, soft tissue mass, smooth well defined borders, soft, consistent with lipoma. Cardiovascular: Rate and Rhythm: Normal rate and regular rhythm. Heart sounds: No murmur heard. Pulmonary: Effort: Pulmonary effort is normal. No respiratory distress. Breath sounds: Normal breath sounds. No wheezing, rhonchi or rales. Musculoskeletal: General: No swelling. Skin: General: Skin is warm and dry. Neurological: General: No focal deficit present. Mental Status: He is alert and oriented to person, place, and time. Psychiatric: Mood and Affect: Mood normal. Behavior: Behavior normal. Assessment/Plan : The following health maintenance schedule was reviewed with the patient and provided in printed form in the after visit summary: Health Maintenance Topic Date Due Medicare Annual Wellness (AWV) 05/07/2023 Diabetes: Hemoglobin A1C 11/27/2023 Diabetes: Retinopathy Screening 01/07/2025 Colorectal Cancer Screening 07/28/2029 Influenza Vaccine Completed Pneumococcal Vaccine: 65+ Years Completed Advance Care Planning Patient agreed to discuss advance care planning at today's wellness visit. We discussed that an advance directive is a legal document that only goes into effect if the patient is incapacitated and unable to speak for himself or herself. This would help healthcare providers to ensure that the patient gets the care that he or she wishes to receive. The goal is to provide a patient with the best possible quality of life. Encouraged patient to obtain a living will and durable power of workers compensation defense attorney for healthcare. We discussed telling mehta people about their advance directives such as close family members, and requested a copy to scan into the patient's EHR. An advance directive packet was offered to the patient. 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, with long-term current use of insulin (CMS/HCC) Chronic kidney disease, stage 2 (mild) (N18.2) Chronic systolic (congestive) heart failure (I50.22) Obstructive sleep apnea syndrome Bronchiectasis without complication (CMS/HCC) Primary cardiomyopathy (CMS/HCC) HFrEF (heart failure with reduced ejection fraction) (CMS/HCC) Persistent atrial fibrillation (HCC) (CMS/HCC) S/P ablation of atrial fibrillation Atherosclerosis of both carotid arteries GERD without esophagitis Stage 3a chronic kidney disease (HCC) (CMS/HCC) Spondylolisthesis, lumbar region Mixed hyperlipidemia (CMS/HCC) No orders of the defined types were placed in this encounter. Follow up in about 6 months (around 03/28/2024) for Routine F/U, Test/Lab Review. Electronically signed by Aung Rosas MD on September 28, 2023 documented in this encounter [facility] 05-22-2023 Note Cardiology Clinic No te Subjective Michelle Sandoval is a 72 y.o. year old male patient with history of non-obstructive coronary artery disease (angiography 2017), PAF s/p ablation, non-ischemic cardiomyopathy heart failure improved ejection fraction, hypertension, and mixed hyperlipidemia seen in follow-up. 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 Full thickness rotator cuff tear Psoriasis vulgaris S/P ablation of atrial fibrillation Sciatica Type 2 diabetes mellitus without complication (CMS/HCC) Coronary atherosclerosis Paroxysmal atrial fibrillation (CMS/HCC) HFrEF (heart failure with reduced ejection fraction) (CMS/HCC) Rash Prediabetes Diabetic on diet only (CMS/HCC) Bronchiectasis (CMS/HCC) Family History Problem Relation Name Age of Onset Cancer Father Cancer Sister Stroke Father's Sister Social History Tobacco Use Smoking status: Former Types: Cigarettes Quit date: 1998 Years since quittin.7 Smokeless tobacco: Never Substance Use Topics Alcohol use: Yes Comment: Every day Drug use: Never HPI: Michelle Sandoval is a 72 y.o. year old with past medical history of A-fib and a flutter s/p ablation 2018, Medtronic loop which is at end-of-life, mild CAD, HFrEF nonischemic cardiomyopathy which was induced by his A-fib. He had a TTE ordered for evaluation of known moderate mitral valve regurgitation. Back in March 2022 his echo suggested he was likely volume overloaded with mitral valve regurgitation new started on Lasix 20 mg. PMHx: primary cardiomyopathy, atrial fib s/p ablation x2 (1st Dr. Hanley, 2nd by Dr. Nugent 11/2018), mitral valve regurg, mild CAD. EKG that was performed on 12/18/2020 shows sinus rhythm with normal intervals Treadmill stress test that was performed on 05/25/2020 reveals a normal EF of 61% with no evidence of ischemia. Echocardiogram that was performed at [facility] on 05/19/2019 showed normal EF with mild MR PMHx: primary cardiomyopathy, atrial fib s/p ablation x2 (1st Dr. Hanley, 2nd by Dr. Nugent 11/2018), mitral valve regurg, mild CAD. 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 He developed sharp chest pain upon returning home. He took 3 nitro tabs which did not relieve the pain leading to ED presentation. 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 Stable dyspnea on exertion, denies palpitations Review of Systems Cardiovascular: Positive for dyspnea on exertion. Negative for chest pain, irregular heartbeat, leg swelling, near-syncope, orthopnea, palpitations, paroxysmal nocturnal dyspnea and syncope. Objective Visit Vitals BP 133/77 (BP Location: Right arm, Patient Position: Sitting) Pulse 65 Ht 1.854 m (6' 1 ) Wt 102 kg (225 lb) SpO2 98% BMI 29.69 kg/m??? Smoking Status Former BSA 2.29 m??? Physical Exam General: Awake, alert, NAD Neck: No elevated JVP. No carotid bruit Pulm: Bibasilar crackles or rhonchi Cards: Regular rate and rhythm, S1, S2. No S3 or S4 gallop. Murmur: none Extr: Lower extremity edema: None. Skin: warm, dry, well perfused Neuro: A&Ox3, No gross deficits Allergies No Known Allergies Medications Current Outpatient Medications: ALPRAZolam (Xanax) 0.5 mg tablet, Take 0.5 mg by mouth if needed at bedtime., Disp: , Rfl: apixaban (Eliquis) 5 mg tablet, Take 5 mg by mouth in the morning and at bedtime., Disp: , Rfl: atenolol (Tenormin) 50 mg tablet, 1 (one) time each day at the same time., Disp: , Rfl: atorvastatin (Lipitor) 40 mg tablet, Take 40 mg by mouth at bedtime., Disp: , Rfl: furosemide (Lasix) 20 mg tablet, Take 2 tablets (40 mg) by mouth in the morning. (Patient taking differently: Take 20 mg by mouth in the morning.), Disp: 60 tablet, Rfl: 11 lisinopril 5 mg tablet, Take 5 mg by mouth in the morning., Disp: , Rfl: nitroglycerin (Nitrostat) 0.4 mg SL tablet, Place 0.4 mg under the tongue., Disp: , Rfl: omeprazole (PriLOSEC) [address] capsule, 1 capsule 1 (one) time each day at the same time., (more content not included)... [facility] 05-22-2023 Note [facility] for [facility] for chest pain. He presented to the ED after taking 3 nitroglycerin tablets without relief. He had been outside working on a deck that day in the heat. Admits he may not have been drinking enough water. Has not had recurrent chest pain since that day. Review of Systems Musculoskeletal: Positive for arthritis and joint pain. Neurological: Positive for light-headedness. All other systems reviewed and are negative. [facility] 02-11-2023 Note [facility]rophys[facility] Consult Note Reason for visit: 6-month follow-up, ROBINSON for mitral valve regurg Update 02/11/23: patient follow-up regarding ROBINSON for mitral valve regurgitation ROBINSON showed mild to moderate mitral regurgitation patient doing well denies any chest pain, shortness of breath, FORBES, LE edema, orthopnea 12/2022 HPI: Michelle Sandoval is a 72 y.o. year old with past medical history of A-fib and a flutter s/p ablation 2018, Medtronic loop which is at end-of-life, mild CAD, HFrEF nonischemic cardiomyopathy which was induced by his A-fib. he was seen 6 months ago and was doing well. He had a TTE ordered for evaluation of known moderate mitral valve regurgitation. Back in March 2022 his echo suggested he was likely volume overloaded with mitral valve regurgitation new started on Lasix 20 mg. He appears euvolemic today but he states to me that he has been getting fatigued and short of breath with exertion but this is nothing new over the last few years. he states when he exerts himself and gets short of breath and fatigue he just takes a break and then once he feels better he returns to what ever he is doing. He was started on Lasix 03/2022 he had not noticed any difference in the way he felt regarding his fatigue and FORBES. TTE that was done yesterday has been showing normal LV EF and function proximal septal hypertrophy of LV, grade 2 diastolic dysfunction of LV progressively worsening mitral valve regurgitation now being labeled as moderate to severe, left atrium is now Mildly enlarged enlarged and previous echo showed normal size left atrium. He denies chest pain, orthopnea, LE edema, lightheadedness, dizziness. PMHx: primary cardiomyopathy, atrial fib s/p ablation x2 (1st Dr. Hanley, 2nd by Dr. Nugent 11/2018), mitral valve regurg, mild CAD. ----- Previous per dr. Bermudez Last HPI per Dr. Bermudez: cc; Loop removal 69-year-old gentleman with a past medical history of atrial fibrillation s/p ablation on 11/25/[address] Hanley followed by recurrence of atypical flutter as well as A. fib for which she underwent a second ablation by Dr. Nugent at [facility] on November 2018. He had a Medtronic loop implant which is since approach end-of-life. The last data quite from this did not show any further high atrial rates since her second ablation. Denies palpitations, dizziness/LH, chest pain, dyspnea at rest, orthopnea, PND, LE edema. Patient is doing very well and he is active. He takes his dog out for a walk which is about a mile with no limitations. EKG that was performed on 12/18/2020 shows sinus rhythm with normal intervals Treadmill stress test that was performed on 05/25/2020 reveals a normal EF of 61% with no evidence of ischemia. Echocardiogram that was performed at [facility] on 05/19/2019 showed normal EF with mild MR PMHx: primary cardiomyopathy, atrial fib s/p ablation x2 (1st Dr. Hanley, 2nd by Dr. Nugent 11/2018), mitral valve regurg, mild CAD. 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 PMH: Past Medical History: Diagnosis Date Atrial fibrillation (CMS/HCC) Coronary artery disease Heart valve disease Hyperlipidemia Mitral valve regurgitation Primary cardiomyopathy (CMS/HCC) Sleep apnea PSH: Past Surgical History: Procedure Laterality Date ABLATION OF DYSRHYTHMIC FOCUS 12/01/2018 afib ablation CARDIAC CATHETERIZATION 07/28/2018 CARDIOVERSION 06/30/2018 CARPAL TUNNEL RELEASE HERNIA REPAIR SH: Social Determinants of Health Tobacco Use: Medium Risk (02/11/2023) Patient History Smoking Tobacco Use: Former Smokeless Tobacco Use: Never Passive Exposure: Not on file Alcohol Use: Not on file Financial Resource Strain: Not on file Food Insecurity: Not on file Transportation Needs: Not on file Physical Activity: Not on file Stress: Not on file Social Connections: Not on file Intimate Partner Violence: Not on file Depression: Not on file Housing Stability: Not on file Allergies: No Known Allergies Weight: 104kg Visit Vitals BP 101/58 Pulse 58 Ht 1.854 m (6' 1 ) Wt 104 kg (230 lb) SpO2 98% BMI 30.34 kg/m??? Smoking Status Former BSA 2.31 m??? Meds: Current Outpatient Medications on File Prior to Visit Medication Sig Dispense Refill ALPRAZolam (Xanax) 0.5 mg tablet Take 0.5 mg by mouth if needed at bedtime. apixaban (Eliquis) 5 mg tablet Take 5 mg by mouth in the morning and at bedtime. atenolol (Tenormin) 50 mg tablet 1 (one) time each day at the same time. atorvastatin (Lipitor) 40 mg tablet Take 40 mg by mouth at bedtime. furosemide (Lasix) 20 mg tablet Take 2 tablets (40 mg) by mouth in the morning. 60 tablet 11 lisinopril 5 mg tablet Take 5 mg by mouth in the morning. nitroglycerin (Nitrostat) 0.[address] 0.4 mg under the tongue. omeprazole (PriLOSEC) [address] capsule 1 capsule (more content not included)... [facility] 02-11-2023 Note Review of Systems All other systems reviewed and are negative. [facility] 01-02-2023 Note Patient is here toda y for a 6 month follow up and to review echo results Review of Systems Cardiovascular: Positive for chest pain, irregular heartbeat and leg swelling. Musculoskeletal: Positive for arthritis, back pain, joint pain, joint swelling, muscle cramps, muscle weakness and neck pain. Neurological: Positive for headaches, light-headedness, numbness and weakness. All other systems reviewed and are negative. [facility] 01-02-2023 Note [place] Electrophysiology Consult Note Reason for visit: 6-month follow-up, TTE for mitral valve regurg HPI: Michelle Sandoval is a 72 y.o. year old with past medical history of A-fib and a flutter s/p ablation 2019, Medtronic loop which is at end-of-life, mild CAD, HFrEF nonischemic cardiomyopathy which was induced by his A-fib. he was seen 6 months ago and was doing well. He had a TTE ordered for evaluation of known moderate mitral valve regurgitation. Back in March 2022 his echo suggested he was likely volume overloaded with mitral valve regurgitation new started on Lasix 20 mg. He appears euvolemic today but he states to me that he has been getting fatigued and short of breath with exertion but this is nothing new over the last few years. he states when he exerts himself and gets short of breath and fatigue he just takes a break and then once he feels better he returns to what ever he is doing. He was started on Lasix 03/2022 he had not noticed any difference in the way he felt regarding his fatigue and FORBES. TTE that was done yesterday has been showing normal LV EF and function proximal septal hypertrophy of LV, grade 2 diastolic dysfunction of LV progressively worsening mitral valve regurgitation now being labeled as moderate to severe, left atrium is now Mildly enlarged enlarged and previous echo showed normal size left atrium. He denies chest pain, orthopnea, LE edema, lightheadedness, dizziness. PMHx: primary cardiomyopathy, atrial fib s/p ablation x2 (1st Dr. Hanley, 2nd by Dr. Nugent 11/2018), mitral valve regurg, mild CAD. ----- Previous per dr. Bermudez Last HPI per Dr. Bermudez: cc; Loop removal 69-year-old gentleman with a past medical history of atrial fibrillation s/p ablation on 11/25/[address] Hanley followed by recurrence of atypical flutter as well as A. fib for which she underwent a second ablation by Dr. Nugent at [facility] on November 2018. He had a Medtronic loop implant which is since approach end-of-life. The last data quite from this did not show any further high atrial rates since her second ablation. Denies palpitations, dizziness/LH, chest pain, dyspnea at rest, orthopnea, PND, LE edema. Patient is doing very well and he is active. He takes his dog out for a walk which is about a mile with no limitations. EKG that was performed on 12/18/2020 shows sinus rhythm with normal intervals Treadmill stress test that was performed on 05/25/2020 reveals a normal EF of 61% with no evidence of ischemia. Echocardiogram that was performed at [facility] on 05/19/2019 showed normal EF with mild MR PMHx: primary cardiomyopathy, atrial fib s/p ablation x2 (1st Dr. Hanley, 2nd by Dr. Nugent 11/2018), mitral valve regurg, mild CAD. 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 PMH: Past Medical History: Diagnosis Date Atrial fibrillation (CMS/HCC) Coronary artery disease Heart valve disease Hyperlipidemia Mitral valve regurgitation Primary cardiomyopathy (CMS/HCC) Sleep apnea PSH: Past Surgical History: Procedure Laterality Date ABLATION OF DYSRHYTHMIC FOCUS 12/01/2018 afib ablation CARDIAC CATHETERIZATION 07/28/2018 CARDIOVERSION 06/30/2018 CARPAL TUNNEL RELEASE HERNIA REPAIR SH: Social Determinants of Health Tobacco Use: Medium Risk Smoking Tobacco Use: Former Smokeless Tobacco Use: Never Passive Exposure: Not on file Alcohol Use: Not on file Financial Resource Strain: Not on file Food Insecurity: Not on file Transportation Needs: Not on file Physical Activity: Not on file Stress: Not on file Social Connections: Not on file Intimate Partner Violence: Not on file Depression: Not on file Housing Stability: Not on file Allergies: No Known Allergies Weight: 104kg Visit Vitals Ht 1.854 m (6' 1 ) Wt 104 kg (229 lb) BMI 30.21 kg/m??? Smoking Status Former BSA 2.31 m??? Meds: Current Outpatient Medications on File Prior to Visit Medication Sig Dispense Refill albuterol 90 mcg/actuation inhaler albuterol sulfate HFA 90 mcg/actuation aerosol inhaler ALPRAZolam (Xanax) 0.5 mg tablet Take 0.5 mg by mouth if needed at bedtime. apixaban (Eliquis) 5 mg tablet Take 5 mg by mouth in the morning and at bedtime. atenolol (Tenormin) 50 mg tablet 1 (one) time each day at the same time. atorvastatin (Lipitor) 40 mg tablet Take 40 mg by mouth at bedtime. furosemide (Lasix) 20 mg tablet 1 (one) time each day at the same time. lisinopril 5 mg tablet Take 5 mg by mouth in the morning. nitroglycerin (Nitrostat) 0.[address] 0.4 mg under the tongue. omeprazole (PriLOSEC) [address] capsule 1 capsule 1 (one) time each day at the same time. sodium fluoride-pot nitrate 1.1-5 % paste PreviDent 5000 Sensitive 1.1 %-5 % dental paste brush WITH a pea sized amount TWICE DAILY in place if your regular toothpaste No curre (more content not included)... [facility] 07-31-2022 Evaluation note Encounter Date Diagnosis Assessment Notes Jul, Contact with and (suspected) exposure to other viral communicable diseases (ICD-10 - Z20.828) Jul, Influenza A (ICD-10 - J10.1) Symptoms presented today are related to the Flu. May use OTC medications such as Mucinex DM, Flu meds, etc. Kids can use Dimatapp or Delsym. Continue tylenol/ibu for general discomfort. Encourage fluids. Antibiotics will not treat the flu. Symptoms should improve within the next 4-7 days. [facility] Other 12-07-2021 Evaluation note* Encounter Date Diagnosis Assessment Notes Treatment Notes Treatment Clinical Notes Jul, Contact with and (suspected) exposure to other viral communicable diseases (ICD-10 - Z20.828) Jul, COVID-19 (ICD-10 - U07.1) PrednisoneDrink plenty fluids, get plenty of rest. Continue your home medications as prescribed. As prescribed until gone. Follow-up with your family physician if no improvement in 2 to 3 days. You must self isolate for 10 days after the onset of your symptoms. Jul, Other Additional time spent conducting pre-visit phone call, screening for symptoms, instructions on social distancing, application and removal of PPE, and cleaning of examination room, equipment and supplies was preformed. Patient education given for testing methodology and results. Patient care instructions given in writting by [facility] Care At Home document. 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, with long-term current use of insulin (CMS/HCC) Chronic kidney disease, stage 2 (mild) (N18.2) Chronic systolic (congestive) heart failure (I50.22) Obstructive sleep apnea syndrome Obstructive sleep apnea (adult) (pediatric) Bronchiectasis without complication (CMS/HCC) Primary cardiomyopathy (CMS/HCC) Other primary cardiomyopathies HFrEF (heart failure with reduced ejection fraction) (CMS/HCC) Persistent atrial fibrillation (HCC) (CMS/HCC) Atrial fibrillation S/P ablation of atrial fibrillation Other postprocedural status Atherosclerosis of both carotid arteries GERD without esophagitis Esophageal reflux Stage 3a chronic kidney disease (HCC) (CMS/HCC) Spondylolisthesis, lumbar region Mixed hyperlipidemia (CMS/HCC) Mixed hyperlipidemia documented in this encounter [facility] HealthcareEvaluation noteNo assessment information availableWyandot [facility] Work Phone: History general Narrative - Reported* Type Description Date Medical History hypertension Medical History Arthritis Medical History hypercholesterolemia Medical History heart problems Surgical History ablasion Surgical History heart catheterization Surgical History hernia repair Surgical History CTS Surgical History shoulder surgery Surgical History bicep repair [facility] Other Summary Purpose Family History No Family History Records Found Relationship Condition Age at Onset Recorded Date/T samira father Malignant neoplasm Unknown Unknown Not Specified History of stroke Unknown Advance Directives No Advanced Directives Records Found Advance Directive Response Recorded Date/ Time Advance Directives No September 24, 2023 12:08pm Hospital Course Note MR#: [id number] [facility] Pt. Name: Michelle Sandoval Admitted: 07/28/2018 Discharged: 07/30/2018 Date of : 1950 Physician: Ramo Cuba MD DISCHARGE SUMMARY DIAGNOSIS AT ADMISSION: 1. Poorly controlled atrial fibrillation, status post failed electrical cardioversion. 2. Nonobstructive CAD. 3. Nonischemic cardiomyopathy, EF of 45%, compensated. 4. Hypertension. DIAGNOSES AT DISCHARGE: 1. Chronic atrial fibrillation, status post successful chemical cardioversion with sotalol. 2. Nonischemic cardiomyopathy with EF of 45%, compensated. 3. Mild nonobstructive CAD. 4. Hypertension. HOSPITAL COURSE: This is a 68-year-old male with history of nonobstructive CAD, hypertension, and chronic atrial fibrillation, status post ablation with recurrent atrial fibrillation, who was admitted for initiation of sotalol for chemical cardioversion after failed electrical cardioversion. After starting the sotalol, the patient went to the normal sinus rhythm and remain (more content not included)... Chief Complaint and Reason for Visit Chief Complaint M25.511 Additional Source Comments Reason for Visit (unrecogniz ed section and content) Reason Comments Referral Reason Comments Medicare Annual Wellness Visit Subsequen t Follow-up Pt states he is stil l on the steroids recently given but states he still has a non productive cough pt states cough started 1 month ago Med Refill nitroglycerin-- DM c lyde (unrecognized sect ion and content) No Status Records FoundNo Status Records FoundNo Status Records FoundNo Status Records FoundNo Status Records FoundNo Status Records FoundNo Status Records Found INFORMATION SOURCE (unrecogn ized section and content) DATE CREATED AUTHOR 05/20/2019 [facility] DATE CREATED AUTHOR AUTHOR'S ORGANIZ ATION 05/18/2022 [facility] DATE CREATED AUTHOR AUTHOR'S ORGANIZ ATION 05/19/2022 [facility] DATE CREATED AUTHOR AUTHOR'S ORGANIZ ATION 10/04/2022 [facility] DATE CREATED AUTHOR AUTHOR'S ORGANIZ ATION 10/16/2023 [facility] DATE CREATED AUTHOR AUTHOR'S ORGANIZ ATION 12/11/2023 [facility] Specialists EPIC DATE CREATED AUTHOR AUTHOR'S ORGANIZ ATION 12/15/2023 [facility] Care Teams (unrecognized sec tion and content) Jigman Relationship Specialty Start Date End Date Aung Rosas MD [address] [facility] [address] [place] [address] PCP - ACO Reach 01/08/23 Aung Rosas MD [address] [facility] [address] [place] [address] PCP - General Internal Medicine 12/23/22 Team Status: Active Member Role Status Dates Aung Rosas II MD Primary Care Provider Active Team Status: Inactive Member Role Status Dates Aung Rosas II MD Primary Care Provider Active Start: October 06, 2023 End: October 06, 2023 Tania Mcclendon MD Attending Provider Active Start: October 06, 2023 End: October 06, 2023 Goals (unrecognized section and content) Goals may be documented in a n alternate section FOR RECORDS PERTAINING TO PATIENTS WHO ARE OR HAVE BEEN ENROLLED IN A CHEMICAL DEPENDENCY/SUBSTANCEABUSE PROGRAM, SOME INFORMATION MAY BE OMITTED. This clinical summary was aggregated from multiple sources. Caution should be exercised in using it in the provision of clinical care. This summary normalizes information from multiple sources, and as a consequence, information in this document may materially change the coding, format and clinical context of patient data. In addition, data may be omitted in some cases. CLINICAL DECISIONS SHOULD BE BASED ON THE PRIMARY CLINICAL RECORDS. [employer] [facility]. provides no warranty or guarantee of the accuracy or completeness of information in this document.
== END 2023-12-28 08:39 | disposition home or self-care (01) ==
LOC: CARD 08:40
PROVIDERS: PCP Internal Medicine; Visit Provider Internal Medicine Interventional Cardiology
DX: I34.0 Nonrheumatic mitral (valve) insufficiency (principal)
CPT/HCPCS: 93306

== ENCOUNTER 2024-12-19 11:03 | Outpatient (OUT) | payer MEDICARE, BC, SELFPAY ==
[2024-12-19 11:29] LABS: Basophils Absolute Auto 0.1 10^3/uL (0.0-0.1); Basophils Percent Auto 0.8 % (0.2-2.0); Eosinophils Absolute Auto 0.2 10^3/uL (0.0-0.7); Eosinophils Percent Auto 3.9 % (0.9-7.0); Hematocrit 39.5 % (42.0-54.0); Hemoglobin 13.7 g/dL (14.0-18.0); Immature Granulocytes Abs Auto 0.01 10^3/uL (0.00-0.03); Immature Granulocytes Pct Auto 0.2 % (0.0-0.5); Lymphocytes Absolute Auto 1.3 10^3/uL (1.2-3.8); Lymphocytes Percent Auto 21.1 % (20.5-60.0); Mean Corpuscular HGB Conc 34.7 g/dL (29.9-35.2); Mean Corpuscular Hemoglobin 31.4 pg (25.9-34.0); Mean Corpuscular Volume 90.6 fL (80.0-94.0); Mean Platelet Volume 10.3 fL (9.5-13.5); Monocytes Absolute Auto 0.5 10^3/uL (0.3-0.8); Monocytes Percent Auto 8.9 % (1.7-12.0); Neutrophils Percent Auto 65.1 % (43.0-75.0); Platelet Count 192 10^3/uL (150-450); Red Blood Count 4.36 10^6/uL (4.70-6.10); Red Cell Distribution Width 13.2 % (11.0-15.0); White Blood Count 6.1 10^3/uL (4.0-11.0)
[2024-12-19 11:45] LABS: Anion Gap 14.6; BUN Creatinine Ratio 14.8; Calcium 8.7 mg/dL (8.5-10.1); Carbon Dioxide 26.7 mmol/L (21.0-32.0); Chloride 99 mmol/L (98-107); Estimated GFR (African America 56 (>=60 mL/min/1.73m^2); Estimated GFR (Non-African Ame 46 (>=60 mL/min/1.73m^2); Glucose 147 mg/dL (74-106); Potassium 4.3 mmol/L (3.5-5.1); Sodium 136 mmol/L (136-145)
== END 2024-12-19 11:04 | disposition home or self-care (01) ==
PROVIDERS: PCP Internal Medicine; Visit Provider Internal Medicine Interventional Cardiology
DX: I25.10 Atherosclerotic heart disease of native coronary artery without angina pectoris (principal); I34.0 Nonrheumatic mitral (valve) insufficiency
CPT/HCPCS: 36415; 80048; 85025

== ENCOUNTER 2025-07-26 16:21 | Emergency (ER) | payer MEDICARE, BC, SELFPAY ==
[2025-07-26 16:30] VITALS: BP 116/97; PULSE 77; TEMP 36.4; O2SAT 96; BMI 26.4
--- NOTE | 2025-07-26 16:46 | ED.RECABL1 ---
HPI - Recheck/Abnormal Lab/Rx General Chief Complaint: Recheck/Abnormal Lab/Rx Stated Complaint: Recheck/Abnormal Lab/Rx Time Seen by Provider: 07/26/25 16:39 Source: patient Mode of arrival: walk-in History of Present Illness HPI narrative: 75 year old male presents to the ED for elevated blood sugar. He had outpatient lab work completed on Thursday07/21/25 and was told today to come to the ED for hyperglycemia upon receiving his results. Reports his glucose on the outpatient labs was >700. Reports increased thirst, blurry vision, and worsening neuropathy for the past 2-3 weeks. He was previously told he was borderline diabetic. Denies fever, chills, MONTOYA, dizziness, CP, SOB. Denies abd pain, N/V/D, dysuria. Related Data Home Medications ?Medication ?Instructions ?Recorded ?Confirmed apixaban 5 mg tablet (Eliquis) 5 mg PO BID 04/06/23 07/26/25 atenolol 50 mg tablet 50 mg PO QDAY 04/06/23 07/26/25 atorvastatin 40 mg tablet 40 mg PO BEDTIME 04/06/23 07/26/25 lisinopril 5 mg tablet 5 mg PO DAILY 04/06/23 07/26/25 nitroglycerin 0.4 mg sublingual 0.4 mg sublingual Q5M PRN chest 04/06/23 07/26/25 tablet pain omeprazole 20 mg capsule,delayed 20 mg PO DAILY 04/06/23 07/26/25 release Previous Rx's ?Medication ?Instructions ?Recorded albuterol sulfate 90 mcg/actuation 2 inh inhalation Q4H PRN shortness 09/19/23 aerosol inhaler of breath or wheezing #8.5 grams prednisone 10 mg tablet See Rx Instructions .Route 09/19/23 .COMPLEX #30 tabs metformin 500 mg tablet 500 mg PO BID #60 tabs 07/26/25 Allergies Allergy/AdvReac Type Severity Reaction Status Date / Time benzonatate (From Tessalon Allergy Intermediate Rash Verified 07/26/25 16:29 Eric) Review of Systems ROS Constitutional Denies: fever, chills or fatigue Eyes Reports: blurry vision Ears, nose, mouth, and throat Denies: throat pain Cardiovascular Denies: chest pain or lightheadedness Respiratory Denies: shortness of breath Gastrointestinal Denies: abdominal pain, nausea, vomiting or diarrhea Genitourinary Denies: painful urination, urinary frequency or urinary urgency Neurological Reports: numbness in extremities; Denies: headache or dizziness Endocrine Reports: excessive thirst PFSH PFSH Medical History (Updated 07/26/25 @ 18:34 by Yolanda Garner) Biceps muscle tear ?S46.219A - Strain of muscle, fascia and tendon of other parts of biceps, unspecified arm, initial encounter (ICD-10) Rotator cuff arthropathy of left shoulder ?M12.812 - Other specific arthropathies, not elsewhere classified, left shoulder (ICD-10) Carpal tunnel syndrome, bilateral ?G56.03 - Carpal tunnel syndrome, bilateral upper limbs (ICD-10) Arthritis ?M19.90 - Unspecified osteoarthritis, unspecified site (ICD-10) Heart valve disease ?I38 - Endocarditis, valve unspecified (ICD-10) Hyperlipidemia ?E78.5 - Hyperlipidemia, unspecified (ICD-10) Finger amputee ?Z89.029 - Acquired absence of unspecified finger(s) (ICD-10) Hernia ?K46.9 - Unspecified abdominal hernia without obstruction or gangrene (ICD-10) Heart attack ?I21.9 - Acute myocardial infarction, unspecified (ICD-10) Surgical History (Updated 04/07/23 @ 02:42 by Anny Roman RN) S/P ablation of atrial fibrillation ?Z98.890 - Other specified postprocedural states (ICD-10) ?Z86.79 - Personal history of other diseases of the circulatory system (ICD-10) Family History (Updated 04/07/23 @ 02:44 by Anny Roman RN) Father Family history of cancer Sister Family history of cancer Mother Family history of stroke Social History (Updated 04/07/23 @ 02:47 by Anny Roman RN) Within the past year, how often did you have a drink containing alcohol: 4 or more times a week Within the past year, how many standard drinks containing alcohol did you have on a typical day: 3 or 4 Within the past year, how often did you have six or more drinks on one occasion: monthly Total score: 4 Score interpretation: A score of 4 or more indicates drinking is likely to affect patient's safety. 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 Known occupational exposures/hazards: No Highest level of school completed/degree received: some college, no degree Are you now , , , , never or living with a partner: In a typical week, how many times do you talk on the telephone with family, friends, or neighbors: 3 or more times per week How often do you get together with friends or relatives: once per week How often do you attend confucianist or worship services: 1-3 times per year Do you belong to any clubs or organizations such as confucianist groups unions, [employer] or athletic groups, or school groups: yes Total score: 3 Score interpretation: A score of greater than or equal to 2 indicates the lowest level of social isolation. Little interest or pleasure in doing things: not at all Feeling down, depressed, or hopeless: not at all Feel stressed/tense/nervous/anxious/difficulty sleeping: only a little Do you think of yourself as: straight/heterosexual Gender Identity: male Exam Constitutional Vital Signs, click to edit/add: Last Vital Signs Temp 97.6 F 07/26/25 16:30 Pulse 77 07/26/25 16:30 Resp 16 07/26/25 16:30 BP 116/97 H 07/26/25 16:30 Pulse Ox 96 07/26/25 16:30 O2 Del Method Room Air 07/26/25 16:30 Common normals: no apparent distress and oriented x3 General appearance: cooperative HENMT Common normals: moist oral mucous membranes Eye Common normals: conjunctivae normal and no scleral icterus Neck & C-Spine Common normals: supple Chest Chest: symmetrical chest wall rise Respiratory Common normals: normal respiratory effort and clear to auscultation bilaterally Effort & inspection: able to speak in complete sentences and symmetric chest movement Cardio Common normals: regular rate and regular rhythm GI Common normals: soft to palpation and non-tender Neuro Common normals: oriented x3, moves all extremities and no focal motor deficits Sensorium/orientation: awake and alert Speech: speech normal Gait (neuro): normal gait Course Vital Signs Vital signs: Vital Signs Temperature 97.6 F 07/26/25 16:30 Pulse Rate 77 07/26/25 16:30 Respiratory Rate 16 07/26/25 16:30 Blood Pressure 116/97 H 07/26/25 16:30 Pulse Oximetry 96 12/10/25 16:30 Oxygen Delivery Method Room Air 07/26/25 16:30 Temperature 97.6 F 07/26/25 16:30 Pulse Rate 77 07/26/25 16:30 Respiratory Rate 16 07/26/25 16:30 Blood Pressure 116/97 H 07/26/25 16:30 Pulse Oximetry 96 07/26/25 16:30 Oxygen Delivery Method Room Air 07/26/25 16:30 MDM - Recheck/Abnormal Lab/Rx MDM Narrative Medical decision making narrative: Blood glucose here in the ED was 407. He was given subcutaneous insulin with improvement to 303. Urinalysis was positive for glucose. The patient is currently taking prednisone. He has hx CHF; IV fluids were held. Findings were discussed. Dr. Mcnulty evaluated the patient. A prescription was provided for Metformin. Follow up with pcp for a recheck, further evaluation and treatment. Medical Records Attestation: I reviewed the patient's medical records. Lab Data Attestation: I reviewed the patient's lab results. Labs: Lab Results 07/26/25 07/26/25 07/26/25 Range/Units 17:15 18:55 19:03 WBC 7.3 (4.0-11.0) 10^3/uL RBC 4.15 L (4.70-6.10) 10^6/uL Hgb 13.2 L (14.0-18.0) g/dL Hct 37.3 L (42.0-54.0) % MCV 89.9 (80.0-94.0) fL MCH 31.8 (25.9-34.0) pg MCHC 35.4 H (29.9-35.2) g/dL RDW 14.3 (11.0-15.0) % Plt Count 230 (150-450) 10^3/uL MPV 10.6 (9.5-13.5) fL Neut % (Auto) 83.2 H (43.0-75.0) % Lymph % (Auto) 9.7 L (20.5-60.0) % [place] % (Auto) 5.7 (1.7-12.0) % Eos % (Auto) 0.3 L (0.9-7.0) % Baso % (Auto) 0.3 (0.2-2.0) % Neut # (Auto) 6.1 (1.4-6.5) 10^3/uL Lymph # (Auto) 0.7 L (1.2-3.8) 10^3/uL [place] # (Auto) 0.4 (0.3-0.8) 10^3/uL Eos # (Auto) 0.0 (0.0-0.7) 10^3/uL Baso # (Auto) 0.0 (0.0-0.1) 10^3/uL Abs Immat Gran (auto) 0.06 H (0.00-0.03) 10^3/uL Imm/Tot Granulo (auto) 0.8 H (0.0-0.5) % Sodium 130 L (136-145) mmol/L Potassium 4.2 (3.5-5.1) mmol/L Chloride 95 L (98-107) mmol/L Carbon Dioxide 21.6 (21.0-32.0) mmol/L Anion Gap 17.6 BUN 28.0 H (7.0-18.0) mg/dL Creatinine 1.40 H (0.70-1.30) mg/dL Est GFR ( Amer) 60 (>=60 mL/min/1.73m^2) Est GFR (Non-Af Amer) 49 L (>=60 mL/min/1.73m^2) BUN/Creatinine Ratio 20.0 Glucose 407 H (74-106) mg/dL Calcium 9.0 (8.5-10.1) mg/dL Total Bilirubin 1.0 (0.2-1.0) mg/dL AST 18 (15-37) U/L ALT 29 (16-63) U/L Alkaline Phosphatase 67 (46-116) U/L Total Protein 7.5 (6.4-8.2) g/dL Albumin 3.9 (3.4-5.0) g/dL Globulin 3.6 g/dL Albumin/Globulin Ratio 1.1 Lipase 49.0 (16.0-77.0) U/L Urine Color Lt. yellow (YELLOW) Urine Clarity Clear (CLEAR) Urine pH 6.0 (5.0-9.0) Ur Specific [place] 1.015 (1.005-1.025) Urine Protein Negative (NEG/TRACE) mg/dL Urine Glucose (UA) >=1000 A (NEGATIVE) mg/dL Urine Ketones 15 A (NEGATIVE) mg/dL Urine Occult Blood Trace-i (NEGATIVE) Urine Nitrite Negative (NEGATIVE) Urine Bilirubin Negative (NEGATIVE) Urine Urobilinogen 0.2 (0.2-1.0) EU/dL Ur Leukocyte Esterase Negative (NEGATIVE) POC Glucose 303 H (74-106) mg/dL Discharge Plan Discharge Chief Complaint: Recheck/Abnormal Lab/Rx Clinical Impression: Hyperglycemia Patient Disposition: Home, Self-Care Time of Disposition Decision: 19:14 Condition: Good Mode of Transportation: Private Vehicle Prescriptions / Home Meds: New metformin 500 mg tablet 500 mg PO BID Qty: 60 0RF No Action atenolol 50 mg tablet 50 mg PO QDAY Eliquis 5 mg tablet 5 mg PO BID atorvastatin 40 mg tablet 40 mg PO BEDTIME lisinopril 5 mg tablet 5 mg PO DAILY omeprazole 20 mg capsule,delayed release(DR/EC) 20 mg PO DAILY nitroglycerin 0.4 mg tablet, sublingual 0.4 mg sublingual Q5M PRN (Reason: chest pain) Rx Instructions: do not exceed 3 doses per episode prednisone 10 mg tablet See Rx Instructions .ROUTE .COMPLEX Qty: 30 0RF Rx Instructions: 4 by mouth daily for three days then 3 by mouth daily for three days then 2 by mouth daily for three days then 1 by mouth daily for three days albuterol sulfate 90 mcg/actuation HFA aerosol inhaler 2 inh inhalation Q4H PRN (Reason: shortness of breath or wheezing) Qty: 8.5 0RF Print Language: Angolan Instructions: Diabetic Hyperglycemia (ED) Additional Instructions: Return to the ED for worsening symptoms. Referrals: GALEN MELENDEZ [Primary Care Provider, Internal Medicine] - 1 week
[2025-07-26 17:26] LABS: Hematocrit 37.3 % (42.0-54.0); Hemoglobin 13.2 g/dL (14.0-18.0); Immature Granulocytes Abs Auto 0.06 10^3/uL (0.00-0.03); Immature Granulocytes Pct Auto 0.8 % (0.0-0.5); Lymphocytes Absolute Auto 0.7 10^3/uL (1.2-3.8); Mean Corpuscular HGB Conc 35.4 g/dL (29.9-35.2); Mean Corpuscular Hemoglobin 31.8 pg (25.9-34.0); Mean Corpuscular Volume 89.9 fL (80.0-94.0); Platelet Count 230 10^3/uL (150-450); Red Blood Count 4.15 10^6/uL (4.70-6.10); White Blood Count 7.3 10^3/uL (4.0-11.0)
[2025-07-26 17:50] LABS: Alanine Aminotransferase 29 U/L (16-63); Albumin Globulin Ratio 1.1; Albumin Level 3.9 g/dL (3.4-5.0); Alkaline Phosphatase 67 U/L (46-116); Anion Gap 17.6; Aspartate Amino Transferase 18 U/L (15-37); Blood Urea Nitrogen 28.0 mg/dL (7.0-18.0); Calcium 9.0 mg/dL (8.5-10.1); Carbon Dioxide 21.6 mmol/L (21.0-32.0); Chloride 95 mmol/L (98-107); Estimated GFR (African America 60 (>=60 mL/min/1.73m^2); Estimated GFR (Non-African Ame 49 (>=60 mL/min/1.73m^2); Globulin 3.6 g/dL; Glucose 407 mg/dL (74-106); Lipase 49.0 U/L (16.0-77.0); Potassium 4.2 mmol/L (3.5-5.1); Sodium 130 mmol/L (136-145); Total Protein 7.5 g/dL (6.4-8.2)
[2025-07-26] MEDS: INSULIN REGULAR, HUMAN (100 UNIT/ML) 10 ML MDV SUBQ (18:11)
[2025-07-26 19:08] LABS: Glucose Urine UA >=1000 mg/dL (NEGATIVE)
[2025-07-26 19:27] VITALS: BP 126/73; PULSE 75; O2SAT 98
[2025-07-26 19:28] LABS: Crystals Seen? None Seen #/HPF (None Seen)
[2025-07-26 19:29] LABS: Cast Seen? NONE SEEN #/LPF (NONE SEEN); Urine Culture Indicated NO
== END 2025-07-26 19:20 | disposition home or self-care (01) ==
PROVIDERS: Nurse Practitioner Family; Emergency Provider Emergency Medicine; PCP Internal Medicine
DX: R73.9 Hyperglycemia, unspecified (principal); I50.9 Heart failure, unspecified
CPT/HCPCS: 36415; 80053; 81001; 83690; 85025; 99283; J1817